=== PATIENT | female | born 1945 | race Caucasian/White ===

== ENCOUNTER → 2017-06-29 | Outpatient (CLI) | payer MEDICAID, MEDICARE ==
[~2017-06-29] MED LIST: ACET500C2 PO; ALPR0.5T6 PO; AMLO10TA2 PO; ASPI-630 PO; BISA10SU13 RC; FLUO40CA2 PO; GLUC1KIT IM; HYDR-971 PO; LISI1TAB7 PO; MULT-503 PO; NYST15PO2 TP; OLAN20TA7 PO; PIOG30TA3 PO
== END | disposition home or self-care (01) ==
LOC: PMGWOUND 12:22
PROVIDERS: ATTEND Emergency Medicine Undersea and Hyperbaric Medicine
DX: I87.311 Chronic venous hypertension (idiopathic) with ulcer of right lower extremity (principal); L97.211 Non-pressure chronic ulcer of right calf limited to breakdown of skin; L89.323 Pressure ulcer of left buttock, stage 3; L89.892 Pressure ulcer of other site, stage 2; E66.9 Obesity, unspecified; M19.90 Unspecified osteoarthritis, unspecified site; F31.9 Bipolar disorder, unspecified; F41.9 Anxiety disorder, unspecified; E78.5 Hyperlipidemia, unspecified
CPT/HCPCS: 99205

== ENCOUNTER → 2017-08-25 | Outpatient (CLI) | payer MEDICARE, MEDICAID ==
[2017-07-20 15:00] VITALS: BP 109/46
== END | disposition home or self-care (01) ==
LOC: PMGWOUND 12:30
PROVIDERS: ATTEND Emergency Medicine Undersea and Hyperbaric Medicine
DX: I87.311 Chronic venous hypertension (idiopathic) with ulcer of right lower extremity (principal); E11.622 Type 2 diabetes mellitus with other skin ulcer; L97.211 Non-pressure chronic ulcer of right calf limited to breakdown of skin; L89.323 Pressure ulcer of left buttock, stage 3; L89.892 Pressure ulcer of other site, stage 2; F41.9 Anxiety disorder, unspecified; F31.9 Bipolar disorder, unspecified; I10 Essential (primary) hypertension; K21.9 Gastro-esophageal reflux disease without esophagitis; E78.5 Hyperlipidemia, unspecified; E66.01 Morbid (severe) obesity due to excess calories; M19.90 Unspecified osteoarthritis, unspecified site; Z68.44 Body mass index [BMI] 60.0-69.9, adult
CPT/HCPCS: 99214

== ENCOUNTER → 2017-09-07 | Outpatient (CLI) | payer MEDICARE, MEDICAID ==
[2017-07-20 15:00] VITALS: BP 109/46
== END | disposition home or self-care (01) ==
LOC: PMGWOUND 13:14
PROVIDERS: ATTEND Emergency Medicine Undersea and Hyperbaric Medicine
DX: I87.311 Chronic venous hypertension (idiopathic) with ulcer of right lower extremity (principal); E11.622 Type 2 diabetes mellitus with other skin ulcer; L97.211 Non-pressure chronic ulcer of right calf limited to breakdown of skin; L89.323 Pressure ulcer of left buttock, stage 3; F41.9 Anxiety disorder, unspecified; F31.9 Bipolar disorder, unspecified; K21.9 Gastro-esophageal reflux disease without esophagitis; M19.90 Unspecified osteoarthritis, unspecified site; E78.5 Hyperlipidemia, unspecified; E66.01 Morbid (severe) obesity due to excess calories; Z68.44 Body mass index [BMI] 60.0-69.9, adult
CPT/HCPCS: 97605

== ENCOUNTER → 2017-09-30 | Outpatient (CLI) | payer MEDICARE, MEDICAID | END | disposition home or self-care (01) | LOC: PMGWOUND 11:10 | DX: I87.311 Chronic venous hypertension (idiopathic) with ulcer of right lower extremity (principal); L97.211 Non-pressure chronic ulcer of right calf limited to breakdown of skin; L89.323 Pressure ulcer of left buttock, stage 3; F31.9 Bipolar disorder, unspecified; F41.9 Anxiety disorder, unspecified; K21.9 Gastro-esophageal reflux disease without esophagitis; E78.5 Hyperlipidemia, unspecified; E66.01 Morbid (severe) obesity due to excess calories; I10 Essential (primary) hypertension; M19.90 Unspecified osteoarthritis, unspecified site; Z68.44 Body mass index [BMI] 60.0-69.9, adult | CPT/HCPCS: 99214 ==

== ENCOUNTER → 2017-10-02 | Outpatient (CLI) | payer MEDICARE, MEDICAID ==
[~2017-10-02] MED LIST changes: -ACET500C2 PO; -ALPR0.5T6 PO; -AMLO10TA2 PO; -ASPI-630 PO; -BISA10SU13 RC; -FLUO40CA2 PO; -GLUC1KIT IM; -HYDR-971 PO; +IOHEXOL 300 MG/ML 100ML VIAL.; -LISI1TAB7 PO; -MULT-503 PO; -NYST15PO2 TP; -OLAN20TA7 PO; -PIOG30TA3 PO
[2017-10-02] MEDS: IOHEXOL 300 MG/ML 100ML VIAL. IJ ×2 (10:43)
== END | disposition home or self-care (01) ==
LOC: RAD 09:01
DX: L02.31 Cutaneous abscess of buttock (principal)
CPT/HCPCS: 73501; 74176; Q9967

== ENCOUNTER → 2017-10-26 | Outpatient (CLI) | payer MEDICARE, MEDICAID | END | disposition home or self-care (01) | LOC: PMGWOUND 08:35 | DX: I87.311 Chronic venous hypertension (idiopathic) with ulcer of right lower extremity (principal); L97.211 Non-pressure chronic ulcer of right calf limited to breakdown of skin; L89.324 Pressure ulcer of left buttock, stage 4; F41.9 Anxiety disorder, unspecified; E78.5 Hyperlipidemia, unspecified; K21.9 Gastro-esophageal reflux disease without esophagitis; E66.01 Morbid (severe) obesity due to excess calories; F31.9 Bipolar disorder, unspecified; I10 Essential (primary) hypertension; M19.90 Unspecified osteoarthritis, unspecified site; Z68.44 Body mass index [BMI] 60.0-69.9, adult | CPT/HCPCS: 97597; 97598; 97605 ==

== ENCOUNTER → 2017-11-02 | Outpatient (CLI) | payer MEDICARE, MEDICAID, OTHER | END | disposition home or self-care (01) | LOC: PMGWOUND 09:45 | DX: I87.311 Chronic venous hypertension (idiopathic) with ulcer of right lower extremity (principal); L97.211 Non-pressure chronic ulcer of right calf limited to breakdown of skin; L89.324 Pressure ulcer of left buttock, stage 4; H16.422 Pannus (corneal), left eye; F41.9 Anxiety disorder, unspecified; E78.5 Hyperlipidemia, unspecified; K21.9 Gastro-esophageal reflux disease without esophagitis; E66.01 Morbid (severe) obesity due to excess calories; F31.9 Bipolar disorder, unspecified; I10 Essential (primary) hypertension; M19.90 Unspecified osteoarthritis, unspecified site; Z68.44 Body mass index [BMI] 60.0-69.9, adult | CPT/HCPCS: 97597; 97605 ==

== ENCOUNTER → 2017-11-09 | Outpatient (CLI) | payer MEDICARE, MEDICAID | END | disposition home or self-care (01) | LOC: PMGWOUND 14:00 | DX: I87.311 Chronic venous hypertension (idiopathic) with ulcer of right lower extremity (principal); L97.211 Non-pressure chronic ulcer of right calf limited to breakdown of skin; L89.324 Pressure ulcer of left buttock, stage 4; H16.422 Pannus (corneal), left eye; F41.9 Anxiety disorder, unspecified; E78.5 Hyperlipidemia, unspecified; K21.9 Gastro-esophageal reflux disease without esophagitis; E66.01 Morbid (severe) obesity due to excess calories; I10 Essential (primary) hypertension; M19.90 Unspecified osteoarthritis, unspecified site; F32.9 Major depressive disorder, single episode, unspecified; Z68.44 Body mass index [BMI] 60.0-69.9, adult; S31.821A Laceration without foreign body of left buttock, initial encounter; X58.XXXA Exposure to other specified factors, initial encounter; Y93.9 Activity, unspecified; Y99.8 Other external cause status; Y92.9 Unspecified place or not applicable | CPT/HCPCS: 97606 ==

== ENCOUNTER → 2017-11-16 | Outpatient (CLI) | payer MEDICARE, MEDICAID | END | disposition home or self-care (01) | LOC: PMGWOUND 10:30 | DX: I87.311 Chronic venous hypertension (idiopathic) with ulcer of right lower extremity (principal); L97.211 Non-pressure chronic ulcer of right calf limited to breakdown of skin (principal); L89.324 Pressure ulcer of left buttock, stage 4; L89.133 Pressure ulcer of right lower back, stage 3; H16.422 Pannus (corneal), left eye; F41.9 Anxiety disorder, unspecified; E78.5 Hyperlipidemia, unspecified; K21.9 Gastro-esophageal reflux disease without esophagitis; E66.01 Morbid (severe) obesity due to excess calories; I10 Essential (primary) hypertension; M19.90 Unspecified osteoarthritis, unspecified site; F32.9 Major depressive disorder, single episode, unspecified; Z68.44 Body mass index [BMI] 60.0-69.9, adult | CPT/HCPCS: 99214 ==

== ENCOUNTER → 2017-11-23 | Outpatient (CLI) | payer MEDICARE, MEDICAID | END | disposition home or self-care (01) | LOC: PMGWOUND 11:05 | DX: L89.324 Pressure ulcer of left buttock, stage 4 (principal); L89.133 Pressure ulcer of right lower back, stage 3; H16.422 Pannus (corneal), left eye; F41.9 Anxiety disorder, unspecified; E78.5 Hyperlipidemia, unspecified; K21.9 Gastro-esophageal reflux disease without esophagitis; E66.01 Morbid (severe) obesity due to excess calories; I10 Essential (primary) hypertension; M19.90 Unspecified osteoarthritis, unspecified site; F32.9 Major depressive disorder, single episode, unspecified; Z68.44 Body mass index [BMI] 60.0-69.9, adult | CPT/HCPCS: 99214 ==

== ENCOUNTER → 2017-12-01 | Outpatient (CLI) | payer MEDICARE, MEDICAID | END | disposition home or self-care (01) | LOC: PMGWOUND 08:49 | DX: I87.311 Chronic venous hypertension (idiopathic) with ulcer of right lower extremity (principal); E11.622 Type 2 diabetes mellitus with other skin ulcer; L97.211 Non-pressure chronic ulcer of right calf limited to breakdown of skin; L89.324 Pressure ulcer of left buttock, stage 4; L89.133 Pressure ulcer of right lower back, stage 3; B37.2 Candidiasis of skin and nail; M19.90 Unspecified osteoarthritis, unspecified site; F31.9 Bipolar disorder, unspecified; F41.9 Anxiety disorder, unspecified; E78.5 Hyperlipidemia, unspecified | CPT/HCPCS: 11042; 11045 ==

== ENCOUNTER → 2017-12-07 | Outpatient (CLI) | payer MEDICARE, MEDICAID | END | disposition home or self-care (01) | LOC: PMGWOUND 09:12 | DX: E11.622 Type 2 diabetes mellitus with other skin ulcer (principal); L89.324 Pressure ulcer of left buttock, stage 4; L98.412 Non-pressure chronic ulcer of buttock with fat layer exposed; L89.133 Pressure ulcer of right lower back, stage 3; L98.491 Non-pressure chronic ulcer of skin of other sites limited to breakdown of skin; I87.311 Chronic venous hypertension (idiopathic) with ulcer of right lower extremity; L97.211 Non-pressure chronic ulcer of right calf limited to breakdown of skin; B37.2 Candidiasis of skin and nail; M19.90 Unspecified osteoarthritis, unspecified site; F32.9 Major depressive disorder, single episode, unspecified; F41.9 Anxiety disorder, unspecified; E66.01 Morbid (severe) obesity due to excess calories; E78.5 Hyperlipidemia, unspecified; K21.9 Gastro-esophageal reflux disease without esophagitis; Z68.44 Body mass index [BMI] 60.0-69.9, adult | CPT/HCPCS: 97606 ==

== ENCOUNTER → 2017-12-14 | Outpatient (CLI) | payer MEDICARE, MEDICAID | END | disposition home or self-care (01) | LOC: PMGWOUND 09:49 | DX: E11.622 Type 2 diabetes mellitus with other skin ulcer (principal); L89.324 Pressure ulcer of left buttock, stage 4; L98.412 Non-pressure chronic ulcer of buttock with fat layer exposed; L89.133 Pressure ulcer of right lower back, stage 3; L98.491 Non-pressure chronic ulcer of skin of other sites limited to breakdown of skin; I87.311 Chronic venous hypertension (idiopathic) with ulcer of right lower extremity; L97.211 Non-pressure chronic ulcer of right calf limited to breakdown of skin; B37.2 Candidiasis of skin and nail; M19.90 Unspecified osteoarthritis, unspecified site; F32.9 Major depressive disorder, single episode, unspecified; F41.9 Anxiety disorder, unspecified; E66.01 Morbid (severe) obesity due to excess calories; E78.5 Hyperlipidemia, unspecified; K21.9 Gastro-esophageal reflux disease without esophagitis; Z68.44 Body mass index [BMI] 60.0-69.9, adult | CPT/HCPCS: 11042 ==

== ENCOUNTER → 2017-12-21 | Outpatient (CLI) | payer MEDICARE, MEDICAID | END | disposition home or self-care (01) | LOC: PMGWOUND 12:00 | DX: E11.622 Type 2 diabetes mellitus with other skin ulcer (principal); L89.324 Pressure ulcer of left buttock, stage 4; L98.412 Non-pressure chronic ulcer of buttock with fat layer exposed; I87.311 Chronic venous hypertension (idiopathic) with ulcer of right lower extremity; L97.211 Non-pressure chronic ulcer of right calf limited to breakdown of skin; B37.2 Candidiasis of skin and nail; M19.90 Unspecified osteoarthritis, unspecified site; F32.9 Major depressive disorder, single episode, unspecified; F41.9 Anxiety disorder, unspecified; E66.01 Morbid (severe) obesity due to excess calories; E78.5 Hyperlipidemia, unspecified; K21.9 Gastro-esophageal reflux disease without esophagitis; Z68.44 Body mass index [BMI] 60.0-69.9, adult | CPT/HCPCS: 99214 ==

== ENCOUNTER 2018-04-19 22:32 | Emergency (ER) | payer MEDICARE, MEDICAID ==
[2018-04-19] MEDS: IV NORMAL SALINE 500ML BAG 500 ML IV (23:15)
[2018-04-20 00:45] LABS: BILIRUBIN,URINE SMALL (NEG); CLARITY,URINE CLEAR; COLOR,URINE AMBER; GLUCOSE,URINE NEGATIVE (NEG); NITRITE,URINE NEGATIVE (NEG); PROTEIN,URINE NEGATIVE (NEG-TRACE)
[2018-04-20 01:01] LABS: AMORPHOUS SEDIMENT,UR PRESENT /HPF; BACTERIA,URINE FEW /HPF (0-FEW); GRANULAR CASTS,URINE MODERATE /HPF; HYALINE CASTS, URINE MANY /HPF; SQUAMOUS EPITHELIAL CELL,UR FEW /LPF
== END 2018-04-20 01:54 | disposition home or self-care (01) ==
LOC: ER 04-20 01:54
DX: M25.561 Pain in right knee (principal); M25.562 Pain in left knee; G89.29 Other chronic pain; I10 Essential (primary) hypertension; E11.9 Type 2 diabetes mellitus without complications; E78.00 Pure hypercholesterolemia, unspecified; Z91.041 Radiographic dye allergy status; E66.01 Morbid (severe) obesity due to excess calories; Z68.44 Body mass index [BMI] 60.0-69.9, adult; X50.9XXA Other and unspecified overexertion or strenuous movements or postures, initial encounter; Y93.01 Activity, walking, marching and hiking; Y99.8 Other external cause status; Y92.89 Other specified places as the place of occurrence of the external cause
CPT/HCPCS: 73560; 81001; 99285-25; J7040

== ENCOUNTER 2018-12-12 17:08 | Inpatient (IN) | payer MEDICARE, OTHER ==
[~2018-12-12] VITALS: Ht 162.6 cm; Wt 159.7 kg
[~2018-12-12 17:08] MED LIST changes: +ACET500C2 PO; +ACET500T55 PO; +ALPR0.5T6 PO; +AMIN30LI PO; +AMLO10TA8 PO; +ASCO500T2 PO; +ASPI-630 PO; +BISA10SU13 RC; +BISA10SU55 RC; +CEPH-264 PO; +CITA10TA4 PO; +FLUO40CA2 PO; +GLUC1KIT IM; +HYDR-2761 PO; +HYDR-3164 PO; -IOHEXOL 300 MG/ML 100ML VIAL.; +LACT1CAP6 PO; +LISI1TAB7 PO; +MORP20SO PO; +MULT-503 PO; +NYST15PO2 TP; +OLAN20TA15 PO; +PIOG30TA62 PO; +PROM12.58 PO; +TRIA15OI TP; +ZINC220C4 PO
--- NOTE | 2018-12-12 17:24 | PHYS DOC ---
Past Medical History Past Medical History: Anxiety, Depression, Diabetes-Type II, High Cholesterol, Hypertension Additional Past Medical Histor: CHRONIC KNEE PAIN (KEVIN KENDRICK MD) Past Surgical History: No Surgical History (KEVIN KENDRICK MD) Alcohol Use: None Drug Use: None (KEVIN KENDRICK MD) Adult General HPI HPI Patient is a 73 year old female who arrives via EMS from her nursing facility. I spoke with Pt's PCP prior to her arrival, and he reported that the patient was hypoxic at the nursing facility, and somewhat less awake than her normal mental statusconcern for CO2 narcosis. The patient was thus sent to the emergency department for evaluation. The patient is somewhat somnolent but arousable, and states she just feels generally weak. She denies any focal pain. She has not had any reported vomiting. She does come with labs results from her nursing facility that were drawn recently, and it appears that she has had a urinary tract infection about 2 weeks ago, which was treated with antibiotics. She has not had a cough. EMS reported a temperature of 99.5, but the patient does feel warm to touch. There are no known alleviating or exacerbating factors to the patient's symptoms otherwise. (KEVIN KENDRICK MD) Review of Systems Review of Systems Constitutional: Denies fever or chills [] Eyes: Denies change in visual acuity, redness, or eye pain [] HENT: Denies nasal congestion or sore throat [] Respiratory: Denies cough or shortness of breath [] Cardiovascular:The patient denies any shortness of breath, chest pain, palpitations, or orthopnea [] GI: Denies Abdominal pain, nausea, vomiting, bloody stools or diarrhea [] : Denies dysuria or hematuria [] Musculoskeletal: Denies back pain or joint pain [] Integument: Denies rash or skin lesions [] Neurologic: Denies headache, focal weakness or sensory changes. . Reports generalized weakness. [] Endocrine: Denies polyuria or polydipsia [] All other systems were reviewed and found to be within normal limits, except as documented in this note. (KEVIN KENDRICK MD) Current Medications Current Medications Current Medications Medications (Trade) Dose Ordered Sig/Macey Start Time Stop Time Status Last Admin Dose Admin Acetaminophen (Tylenol) 1,000 mg 1X ONCE 12/12/18 18:00 3/17/19 18:01 DC 12/12/18 18:03 1,000 MG Furosemide (Lasix) 40 mg 1X ONCE 12/12/18 18:45 12/12/18 18:46 UNV Sodium Chloride 1,000 ml @ 100 mls/hr Q10H 12/12/18 17:30 12/13/18 03:29 12/12/18 18:03 100 MLS/HR (SIMI PAN Jr. DO) Allergies Allergies Allergies Coded Allergies Type Severity Reaction Last Updated Verified I S O L A T I O N *CONTACT* Allergy Unknown 10/14/17 Yes No Known Medication Allergies Allergy Unknown 10/14/17 Yes (SIMI PAN Jr. DO) Physical Exam Physical Exam PHYSICAL EXAM: CONSTITUTIONAL: Well developed, the patient is morbidly obese.. HEAD: normocephalic, atraumatic EENT: PERRL, EOMI. Conjunctivae normal color, sclerae non-icteric; moist mucous membranes. NECK: Supple, non-tender; no meningismus. LUNGS: Lungs CTA, breathing even and unlabored. Normal air movement. HEART: Regular rate and rhythm, no murmur CHEST: No deformity; non-tender ABDOMEN: The abdomen is soft, and non-tender, no masses or bruits. EXTREM: Normal ROM; no deformity, no calf tenderness. Normal pulses palpable in all extremities. There is significant tense bilateral pedal edema with changes of chronic venous stasis bilaterally. There are wrapping was on the legs and feet bilaterally. SKIN: There is hyperemia of the underside of the patient's abdominal pannus and perineum suggestive of fungal infection. No other rash; no diaphoresis NEURO: Pt is lethargic, but arousable, normal speech and cognition; CN's grossly intact; strength grossly intact without focal deficit. BACK: No CVA TTP. (KEVIN KENDRICK MD) Current Patient Data Vital Signs Vital Signs Date Time Temp Pulse Resp B/P (MAP) Pulse Ox O2 Delivery O2 Flow Rate FiO2 12/12/18 18:10 Nasal Cannula 4.5 12/12/18 17:08 100.5 100 12 121/56 (77) 95 100.5 (SIMI PAN Jr. DO) Lab Values Laboratory Tests Test 12/12/18 17:13 12/12/18 17:25 12/12/18 17:30 O2 Saturation 96 % (92-99) Arterial Blood pH 7.44 (7.35-7.45) Arterial Blood pCO2 at Patient Temp 46 mmHg (35-46) Arterial Blood pO2 at Patient Temp 86 mmHg (65-108) Arterial Blood HCO3 30 mmol/L (21-28) H Arterial Blood Base Excess 5 mmol/L (-3-3) H FiO2 38 White Blood Count 9.8 x10^3/uL (4.0-11.0) Red Blood Count 3.33 x10^6/uL (3.50-5.40) L Hemoglobin 9.7 g/dL (12.0-15.5) L Hematocrit 29.6 % (36.0-47.0) L Mean Corpuscular Volume 89 fL (79-100) Mean Corpuscular Hemoglobin 29 pg (25-35) Mean Corpuscular Hemoglobin Concent 33 g/dL (31-37) Red Cell Distribution Width 15.0 % (11.5-14.5) H Platelet Count 241 x10^3/uL (140-400) Neutrophils (%) (Auto) 83 % (31-73) H Lymphocytes (%) (Auto) 11 % (24-48) L Monocytes (%) (Auto) 6 % (0-9) Eosinophils (%) (Auto) 0 % (0-3) Basophils (%) (Auto) 0 % (0-3) Neutrophils # (Auto) 8.1 x10^3uL (1.8-7.7) H Lymphocytes # (Auto) 1.1 x10^3/uL (1.0-4.8) Monocytes # (Auto) 0.6 x10^3/uL (0.0-1.1) Eosinophils # (Auto) 0.0 x10^3/uL (0.0-0.7) Basophils # (Auto) 0.0 x10^3/uL (0.0-0.2) Prothrombin Time 23.0 SEC (11.7-14.0) H Prothrombin Time INR 2.1 (0.8-1.1) H Sodium Level 143 mmol/L (136-145) Potassium Level 3.9 mmol/L (3.5-5.1) Chloride Level 104 mmol/L (98-107) Carbon Dioxide Level 33 mmol/L (21-32) H Anion Gap 6 (6-14) Blood Urea Nitrogen 30 mg/dL (7-20) H Creatinine 1.3 mg/dL (0.6-1.0) H Estimated GFR (Cockcroft-Gault) 40.4 BUN/Creatinine Ratio 23 (6-20) H Glucose Level 156 mg/dL (70-99) H Lactic Acid Level 0.8 mmol/L (0.4-2.0) Calcium Level 9.2 mg/dL (8.5-10.1) Magnesium Level 2.0 mg/dL (1.8-2.4) Total Bilirubin 0.5 mg/dL (0.2-1.0) Aspartate Amino Transferase (AST) 18 U/L (15-37) Alanine Aminotransferase (ALT) 10 U/L (14-59) L Alkaline Phosphatase 68 U/L (46-116) Creatine Kinase 135 U/L (26-192) Creatine Kinase MB (Mass) < 0.5 ng/mL (0.0-3.6) Creatine Kinase MB Relative Index % (0-4) Troponin I Quantitative < 0.017 ng/mL (0.000-0.055) RA-Zmz-S-Type Natriuretic Peptide 5925 pg/mL (0-124) H Total Protein 7.3 g/dL (6.4-8.2) Albumin 2.3 g/dL (3.4-5.0) L Albumin/Globulin Ratio 0.5 (1.0-1.7) L Thyroid Stimulating Hormone (TSH) 0.907 uIU/mL (0.358-3.74) Free Thyroxine 1.16 ng/dL (0.76-1.46) Urine Collection Type Unknown Urine Color Yellow Urine Clarity Clear Urine pH 5.0 Urine Specific [place] 1.015 Urine Protein Negative mg/dL (NEG-TRACE) Urine Glucose (UA) Negative mg/dL (NEG) Urine Ketones (Stick) Negative mg/dL (NEG) Urine Blood Moderate (NEG) Urine Nitrite Negative (NEG) Urine Bilirubin Negative (NEG) Urine Urobilinogen Dipstick 0.2 mg/dL (0.2 mg/dL) Urine Leukocyte Esterase Negative (NEG) Urine RBC 20-40 /HPF (0-2) Urine WBC 0 /HPF (0-4) Urine Bacteria 0 /HPF (0-FEW) Laboratory Tests 12/12/18 17:25 Laboratory Tests 12/12/18 17:25 (SIMI PAN Jr. DO) Lab Values Laboratory Tests Test 12/12/18 17:25 White Blood Count 9.8 x10^3/uL (4.0-11.0) Red Blood Count 3.33 x10^6/uL (3.50-5.40) L Hemoglobin 9.7 g/dL (12.0-15.5) L Hematocrit 29.6 % (36.0-47.0) L Mean Corpuscular Volume 89 fL (79-100) Mean Corpuscular Hemoglobin 29 pg (25-35) Mean Corpuscular Hemoglobin Concent 33 g/dL (31-37) Red Cell Distribution Width 15.0 % (11.5-14.5) H Platelet Count 241 x10^3/uL (140-400) Neutrophils (%) (Auto) 83 % (31-73) H Lymphocytes (%) (Auto) 11 % (24-48) L Monocytes (%) (Auto) 6 % (0-9) Eosinophils (%) (Auto) 0 % (0-3) Basophils (%) (Auto) 0 % (0-3) Neutrophils # (Auto) 8.1 x10^3uL (1.8-7.7) H Lymphocytes # (Auto) 1.1 x10^3/uL (1.0-4.8) Monocytes # (Auto) 0.6 x10^3/uL (0.0-1.1) Eosinophils # (Auto) 0.0 x10^3/uL (0.0-0.7) Basophils # (Auto) 0.0 x10^3/uL (0.0-0.2) Laboratory Tests 12/12/18 17:25 (KEVIN KENDRICK MD) EKG EKG [Normal sinus rhythm with frequent APCs at a rate of 92 beats for minute, normal axis, normal intervals, there are no acute ischemic ST/T changes.] (KEVIN KENDRICK MD) Radiology/Procedures Radiology/Procedures [] (KEVIN KENDRICK MD) Course & Med Decision Making Course & Med Decision Making Pertinent Labs and Imaging studies reviewed. (See chart for details) [6:00 PM: The patient's condition remains stable. Care will be turned over to Dr. Pan at shift change, pending test results and final disposition. Report given.] (KEVIN KENDRICK MD) Course & Med Decision Making Patient's care was accepted from Dr. Kendrick at 6:00 PM. At the time of his departure patient's workup was pending. Workup has returned with findings of elevated BNP at 5900 chest x-ray demonstrating some fluid overload. I have discussed the patient's case with Dr. Andino and patient will be admitted under his care with cardiology consulted. (SIMI PAN Jr., DO) Dragon Disclaimer Dragon Disclaimer This electronic medical record was generated, in whole or in part, using a voice recognition dictation system. (KEVIN KENDRICK MD) Departure Departure Impression: Primary Impression: CHF (congestive heart failure) Disposition: ADMITTED INPATIENT Admitting Physician: Angeline Andino (SIMI PAN Jr., DO) Condition: GOOD Referrals: ANGELINE ANDINO MD (PCP) Problem Qualifiers Primary Impression: CHF (congestive heart failure) Heart failure type: unspecified Heart failure chronicity: unspecified Qualified Codes: I50.9 - Heart failure, unspecified KEVIN KENDRICK MD Dec 12, 2018 17:24 SIMI PAN Jr., DO Dec 12, 2018 18:42
[2018-12-12] MEDS ORDERED: IV NORMAL SALINE 1000ML BAG 1,000 ML IV SCH (17:30)
[2018-12-12 17:41] LABS: BASO % 0 % (0-3); EOS % 0 % (0-3); HEMATOCRIT 29.6 % (36.0-47.0); HEMOGLOBIN 9.7 g/dL (12.0-15.5); LYMPH # 1.1 x10^3/uL (1.0-4.8); LYMPH % 11 % (24-48); MEAN CORPUSCULAR HEMOGLOBIN 29 pg (25-35); MEAN CORPUSCULAR HGB CONC 33 g/dL (31-37); MEAN CORPUSCULAR VOLUME 89 fL (79-100); MONO # 0.6 x10^3/uL (0.0-1.1); MONO % 6 % (0-9); NEUT # 8.1 x10^3uL (1.8-7.7); NEUT % 83 % (31-73); PLATELET COUNT 241 x10^3/uL (140-400); RED BLOOD COUNT 3.33 x10^6/uL (3.50-5.40); WHITE BLOOD COUNT 9.8 x10^3/uL (4.0-11.0)
[2018-12-12 17:45] LABS: BILIRUBIN,URINE NEGATIVE (NEG); CLARITY,URINE CLEAR; COLOR,URINE YELLOW; NITRITE,URINE NEGATIVE (NEG); PROTEIN,URINE NEGATIVE (NEG-TRACE); UROBILINOGEN,URINE 0.2 mg/dL (0.2 mg/dL)
[2018-12-12 17:55] LABS: CALCIUM 9.2 mg/dL (8.5-10.1); CREATININE 1.3 mg/dL (0.6-1.0); GFR 40.4; POTASSIUM 3.9 mmol/L (3.5-5.1)
[2018-12-12 17:57] LABS: BACTERIA,URINE 0 /HPF (0-FEW); RBC,URINE 20-40 /HPF (0-2); WBC,URINE 0 /HPF (0-4)
[2018-12-12 17:59] LABS: ALBUMIN 2.3 g/dL (3.4-5.0); ALBUMIN/GLOBULIN RATIO 0.5 (1.0-1.7); TOTAL BILIRUBIN 0.5 mg/dL (0.2-1.0); TOTAL PROTEIN 7.3 g/dL (6.4-8.2)
[2018-12-12] MEDS ORDERED: ACETAMINOPHEN 500 MG TABLET PO ONE (18:00)
[2018-12-12 18:07] LABS: FREE T4 1.16 ng/dL (0.76-1.46); THYROID STIM HORMONE (TSH) 0.907 uIU/mL (0.358-3.74)
[2018-12-12 18:09] LABS: CREATINE KINASE 135 U/L (26-192)
[2018-12-12 18:19] LABS: BASE EXCESS ABG 5 mmol/L (-3-3); HCO3 ABG 30 mmol/L (21-28); PCO2 ABG 46 mmHg (35-46); PO2 ABG 86 mmHg (65-108); SAT O2 ABG 96 % (92-99)
[2018-12-12 18:20] LABS: FIO2 ABG 38
[2018-12-12] MEDS ORDERED: FUROSEMIDE 40 MG/4 ML VIAL. IVP ONE (19:00)
[2018-12-12 20:30] VITALS: BP 127/73
[2018-12-12] MEDS ORDERED: NITR100C62 PO (22:02)
[2018-12-12] MEDS ORDERED: MENT3.5O TP (22:02)
[2018-12-12] MEDS ORDERED: BACL10TA PO (22:02)
[2018-12-12] MEDS ORDERED: GABA-585 PO (22:02)
[2018-12-12 23:00] VITALS: BP 118/62
--- NOTE | 2018-12-13 | NUR ---
The patient, ARIK HAWKINS, 73 y/o, F admitted by JOSEPH XIONG MD, was given written information regarding hospital policies, unit procedures and contact persons. Valuables were checked and left with patient.
[2018-12-13 03:00] VITALS: BP 130/52
[2018-12-13] MEDS: NYSTATIN TOPICAL POWDER 15GM BOTTLE. TP SCH ×3 (05:38→20:49)
[2018-12-13 07:00] VITALS: BP 122/56
--- NOTE | 2018-12-13 07:00 | EKG ---
[facility] [address] [place] [address] Test Date: 2018-12-12 Test Time: 17:50:25 Pat Name: ARIK HAWKINS Department: Room: [facility] Gender: F Ssn/Ssbn Assistant Navigator: SONIA : 1945 Requested By: KEVIN BHAT Order Number: [id number] Reading MD: Noel Fish MD Measurements Intervals [place] Rate: 92 P: UT: QRS: 9 QRSD: 80 T: 27 QT: 356 QTc: 445 Interpretive Statements ATRIAL FIBRILLATION NON-SPECIFIC ST/T CHANGES Electronically Signed On 12-16-2018 15:54:07 CDT by Noel Fish MD
--- NOTE | 2018-12-13 08:19 | RAD ---
EXAM: AP View of the chest DATE: 12/12/2018 6:18 PM INDICATION: difficulty breathing COMPARISON: 02/17/2018 FINDINGS: Stable cardiomegaly. Small left pleural effusion. Interstitial prominence bilaterally. No lobar consolidation. No pneumothorax. Mediastinal and hilar contours are grossly stable. IMPRESSION: Cardiomegaly with small left pleural effusion and interstitial prominence may be seen with pulmonary edema. No lobar consolidation. Electronically signed by: Owen Bowman MD (12/13/2018 8:16 AM) [id number]
[2018-12-13] MEDS ORDERED: ALPRAZolam 0.5 MG TABLET PO PRN (09:00)
[2018-12-13] MEDS ORDERED: NON FORMULARY ITEM (Menthol/Zinc Oxide (Calmoseptine Ointment) 3.5 GM) TP SCH (09:00)
[2018-12-13] MEDS ORDERED: GLUCAGON,HUMAN RECOMBINANT 1 MG/ML VIAL. IM PRN (09:15)
[2018-12-13] MEDS ORDERED: MORPHINE IR 15 MG TABLET PO PRN (09:15)
[2018-12-13] MEDS ORDERED: ACETAMINOPHEN 500 MG TABLET PO PRN (09:15)
[2018-12-13] MEDS ORDERED: BISACODYL 10 MG SUPP.RECT. PR PRN (09:15)
[2018-12-13] MEDS ORDERED: VANCOMYCIN 2 GM in IV NORMAL SALINE 500ML BAG 500 ML IV ONE (09:30)
[2018-12-13 09:47] LABS: BASO % 0 % (0-3); EOS # 0.1 x10^3/uL (0.0-0.7); EOS % 1 % (0-3); HEMATOCRIT 32.5 % (36.0-47.0); HEMOGLOBIN 10.8 g/dL (12.0-15.5); LYMPH # 1.3 x10^3/uL (1.0-4.8); LYMPH % 18 % (24-48); MEAN CORPUSCULAR HEMOGLOBIN 30 pg (25-35); MEAN CORPUSCULAR HGB CONC 33 g/dL (31-37); MEAN CORPUSCULAR VOLUME 90 fL (79-100); MONO # 0.8 x10^3/uL (0.0-1.1); MONO % 11 % (0-9); NEUT % 70 % (31-73); PLATELET COUNT 224 x10^3/uL (140-400); RED BLOOD COUNT 3.61 x10^6/uL (3.50-5.40); RED CELL DISTRIBUTION WIDTH 15.1 % (11.5-14.5); WHITE BLOOD COUNT 7.2 x10^3/uL (4.0-11.0)
--- NOTE | 2018-12-13 09:58 | NUR ---
IP: Pt has a hx of + mrsa screen on 02/17/18 and + vre in buttock abscess from 10/14/17. Pt to be in contact precautions until there are 2 negative screens 7 days apart and no open wounds.
[2018-12-13] MEDS: TRIAMCINOLONE ACETONIDE 0.1% TOPICAL OINTMENT 15GM TUBE. TP SCH ×2 (10:00→20:49)
[2018-12-13] MEDS: OLANZapine 5 MG TABLET PO SCH (10:00)
[2018-12-13] MEDS ORDERED: PIOGLITAZONE 15 MG TABLET. PO SCH (10:00)
--- NOTE | 2018-12-13 10:01 | PDOC2 ---
CARDIAC CONSULT DATE OF CONSULT Date of Consult DATE: 12/13/18 TIME: 09:56 REASON FOR CONSULT Reason for Consult: CHF REFERRING PHYSICIAN Referring Physician: Dr. Pan SOURCE Source: Caregiver, Chart review, Patient HISTORY OF PRESENT ILLNESS HISTORY OF PRESENT ILLNESS This is a 73 yo female who presented from nursing facility secondary to altered mental status, drowsiness, and hypoxia. Patient was seen last week at [facility] due to similar symptoms. Was diagnosed with UTI and discharged home with antibiotic therapy. Patient finished course of antibiotic therapy, but symptoms persisted. Became more drowsy. Was noted to be hypoxic at nursing facility and was transferred to the ED for further evaluation and treatment. Patient does reports some mild SOA. Has been weak for the last couple of weeks. No chest pain, palpitations, dizziness, diaphoresis, orthopnea , or fevers. Has chronic LE edema/lymphedema with wounds. Also has history of AFIB with Eliquis. Reports increased weakness and reports 4 falls in the last 6 months. 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 PAST MEDICAL HISTORY Cardiovascular: AFIB, CHF, HTN, Hyperlipidemia, Other (PAD) Pulmonary: No pertinent hx CENTRAL NERVOUS SYSTEM: Other (no pertinent positives) GI: GERD Heme/Onc: No pertinent hx Hepatobiliary: No pertinent hx Psych: Anxiety, Depression Musculoskeletal: Osteoarthritis Rheumatologic: No pertinent hx Infectious disease: No pertinent hx ENT: No pertinent hx Renal/: No pertinent hx Endocrine: Diabetes Dermatology: No pertinent hx PAST SURGICAL HISTORY Past Surgical History: Other (back pain) FAMILY HISTORY Family History: Heart Disease SOCIAL HISTORY Smoke: No ALCOHOL: none Drugs: None Lives: Care Home CURRENT MEDICATIONS CURRENT MEDICATIONS Current Medications Medications (Trade) Dose Ordered Sig/Macey Route PRN Reason Start Time Stop Time Status Last Admin Dose Admin Sodium Chloride 1,000 ml @ 100 mls/hr Q10H IV 12/12/18 17:30 12/13/18 03:29 DC 12/12/18 18:03 Acetaminophen (Tylenol) 1,000 mg 1X ONCE PO 12/12/18 18:00 12/12/18 18:01 DC 12/12/18 18:03 Furosemide (Lasix) 40 mg 1X ONCE IVP 12/12/18 19:00 12/12/18 19:01 DC 12/12/18 18:58 Nystatin (Nystop) 15 campos BID TP 12/13/18 06:00 12/13/18 07:54 ALLERGIES ALLERGIES: Coded Allergies: I S O L A T I O N *CONTACT* (Verified Allergy, Unknown, 10/14/17) mrsa No Known Medication Allergies (Verified Allergy, Unknown, 10/14/17) ROS Review of System 14 point ROS conducted with pertinent positives noted above in HPI. PHYSICAL EXAM General: Alert, Oriented X3, Cooperative, No acute distress HEENT: Atraumatic Lungs: Clear to auscultation, Other (diminished bases) Heart: Other (IRRR; tele AFIB) Abdomen: Soft, No tenderness Extremities: Normal pulses, Other (lymphedema ) Skin: No significant lesion Neuro: Normal speech, Sensation intact Psych/Mental Status: Mental status NL, Mood NL MUSCULOSKELETAL: Osteoarthritic changes both hands VITALS VITALS Vital Signs Date Time Temp Pulse Resp B/P (MAP) Pulse Ox O2 Delivery O2 Flow Rate FiO2 12/13/18 07:00 97.9 60 18 122/56 (78) 95 Nasal Cannula 2.0 97.9 LABS Lab: Laboratory Tests Test 12/12/18 17:13 12/12/18 17:25 12/12/18 17:30 12/12/18 20:10 O2 Saturation 96 % (92-99) Arterial Blood pH 7.44 (7.35-7.45) Arterial Blood pCO2 at Patient Temp 46 mmHg (35-46) Arterial Blood pO2 at Patient Temp 86 mmHg (65-108) Arterial Blood HCO3 30 mmol/L (21-28) Arterial Blood Base Excess 5 mmol/L (-3-3) FiO2 38 White Blood Count 9.8 x10^3/uL (4.0-11.0) Red Blood Count 3.33 x10^6/uL (3.50-5.40) Hemoglobin 9.7 g/dL (12.0-15.5) Hematocrit 29.6 % (36.0-47.0) Mean Corpuscular Volume 89 fL (79-100) Mean Corpuscular Hemoglobin 29 pg (25-35) Mean Corpuscular Hemoglobin Concent 33 g/dL (31-37) Red Cell Distribution Width 15.0 % (11.5-14.5) Platelet Count 241 x10^3/uL (140-400) Neutrophils (%) (Auto) 83 % (31-73) Lymphocytes (%) (Auto) 11 % (24-48) Monocytes (%) (Auto) 6 % (0-9) Eosinophils (%) (Auto) 0 % (0-3) Basophils (%) (Auto) 0 % (0-3) Neutrophils # (Auto) 8.1 x10^3uL (1.8-7.7) Lymphocytes # (Auto) 1.1 x10^3/uL (1.0-4.8) Monocytes # (Auto) 0.6 x10^3/uL (0.0-1.1) Eosinophils # (Auto) 0.0 x10^3/uL (0.0-0.7) Basophils # (Auto) 0.0 x10^3/uL (0.0-0.2) Prothrombin Time 23.0 SEC (11.7-14.0) Prothromb Time International Ratio 2.1 (0.8-1.1) Sodium Level 143 mmol/L (136-145) Potassium Level 3.9 mmol/L (3.5-5.1) Chloride Level 104 mmol/L (98-107) Carbon Dioxide Level 33 mmol/L (21-32) Anion Gap 6 (6-14) Blood Urea Nitrogen 30 mg/dL (7-20) Creatinine 1.3 mg/dL (0.6-1.0) Estimated GFR (Cockcroft-Gault) 40.4 BUN/Creatinine Ratio 23 (6-20) Glucose Level 156 mg/dL (70-99) Lactic Acid Level 0.8 mmol/L (0.4-2.0) Calcium Level 9.2 mg/dL (8.5-10.1) Magnesium Level 2.0 mg/dL (1.8-2.4) Total Bilirubin 0.5 mg/dL (0.2-1.0) Aspartate Amino Transf (AST/SGOT) 18 U/L (15-37) Alanine Aminotransferase (ALT/SGPT) 10 U/L (14-59) Alkaline Phosphatase 68 U/L (46-116) Creatine Kinase 135 U/L (26-192) Creatine Kinase MB (Mass) < 0.5 ng/mL (0.0-3.6) Creatine Kinase MB Relative Index % (0-4) Troponin I Quantitative < 0.017 ng/mL (0.000-0.055) QC-Arf-B-Type Natriuretic Peptide 5925 pg/mL (0-124) Total Protein 7.3 g/dL (6.4-8.2) Albumin 2.3 g/dL (3.4-5.0) Albumin/Globulin Ratio 0.5 (1.0-1.7) Thyroid Stimulating Hormone (TSH) 0.907 uIU/mL (0.358-3.74) Free Thyroxine 1.16 ng/dL (0.76-1.46) Urine Collection Type Unknown Urine Color Yellow Urine Clarity Clear Urine pH 5.0 Urine Specific [place] 1.015 Urine Protein Negative mg/dL (NEG-TRACE) Urine Glucose (UA) Negative mg/dL (NEG) Urine Ketones (Stick) Negative mg/dL (NEG) Urine Blood Moderate (NEG) Urine Nitrite Negative (NEG) Urine Bilirubin Negative (NEG) Urine Urobilinogen Dipstick 0.2 mg/dL (0.2 mg/dL) Urine Leukocyte Esterase Negative (NEG) Urine RBC 20-40 /HPF (0-2) Urine WBC 0 /HPF (0-4) Urine Bacteria 0 /HPF (0-FEW) Ammonia < 10 mcmol/L (11-34) Test 12/13/18 08:24 12/13/18 09:05 Glucose (Fingerstick) 99 mg/dL (70-99) White Blood Count 7.2 x10^3/uL (4.0-11.0) Red Blood Count 3.61 x10^6/uL (3.50-5.40) Hemoglobin 10.8 g/dL (12.0-15.5) Hematocrit 32.5 % (36.0-47.0) Mean Corpuscular Volume 90 fL (79-100) Mean Corpuscular Hemoglobin 30 pg (25-35) Mean Corpuscular Hemoglobin Concent 33 g/dL (31-37) Red Cell Distribution Width 15.1 % (11.5-14.5) Platelet Count 224 x10^3/uL (140-400) Neutrophils (%) (Auto) 70 % (31-73) Lymphocytes (%) (Auto) 18 % (24-48) Monocytes (%) (Auto) 11 % (0-9) Eosinophils (%) (Auto) 1 % (0-3) Basophils (%) (Auto) 0 % (0-3) Neutrophils # (Auto) 5.0 x10^3uL (1.8-7.7) Lymphocytes # (Auto) 1.3 x10^3/uL (1.0-4.8) Monocytes # (Auto) 0.8 x10^3/uL (0.0-1.1) Eosinophils # (Auto) 0.1 x10^3/uL (0.0-0.7) Basophils # (Auto) 0.0 x10^3/uL (0.0-0.2) ASSESSMENT/PLAN ASSESSMENT/PLAN 1. Acute hypoxic respiratory failure 2. Acute on chronic probable diastolic HF; improved with diuresis 3. Hypertension; controlled 4. Hyperlipidemia 5. ANDRZEJ; improved 6. Diabetes, II; as per PCP 7. Chronic lymphedema Recommendations Echo to assess LV systolic function Diuresis with monitoring of renal function check lipids Given risk factors, consider outpatient ischemic evaluation AIFB rate controlled; No AV ana blocking agents given mild bradycardia noted on telemetry On Eliquis for stroke prevention; discussed risk versus benefits of OAC versus ASA with patient and daughter given multiple recent falls. Supportive care TADEO PARRA APRN Dec 13, 2018 10:01
[2018-12-13 10:24] LABS: CALCIUM 9.4 mg/dL (8.5-10.1); CREATININE 1.1 mg/dL (0.6-1.0); POTASSIUM 3.7 mmol/L (3.5-5.1)
--- NOTE | 2018-12-13 10:42 | HP ---
ADMIT DATE: 12/12/2018 HISTORY OF PRESENT ILLNESS: The patient is a 73-year-old female patient, resident at [facility] in [place] whom I have seen yesterday, who I have seen with the complaint of generalized weakness. She was shaky on her feet, has marked myoclonic jerks, was also hypoxic, unable to stand; however, denied any chest pain or shortness of breath. I was actually convinced given her size that she probably was retaining carbon dioxide and was transferred to the Emergency Room of [facility] where she was evaluated. Her lab work showed no leukocytosis. Her blood gases showed a pH of 7.44, pCO2 of 46 only and pO2 was 86. Her chest x-ray was consistent with congestive heart failure. The patient was treated with IV Lasix and was admitted for further evaluation. She has also had multiple wounds in both lower extremities, on her back and on her thighs and her gluteal areas and we will obviously consult the Marine Machinist as well as the Wound Care Team. We will monitor her blood sugar closely and start her on insulin if necessary. PAST MEDICAL HISTORY: Significant for anxiety, depression, type 2 diabetes, hypertension and hyperlipidemia. She also has morbid obesity, severe osteoarthritis of both knee joints and multiple wounds and recurrent bilateral lower extremity cellulitis. PAST SURGICAL HISTORY: Unremarkable. FAMILY HISTORY: Unremarkable. SOCIAL HISTORY: She is a resident at [facility] in [place]. She does not smoke, drink alcohol or use any recreational drugs. ALLERGIES: The patient has no known drug allergies. MEDICATIONS: She is on following medications; she was on nitrofurantoin 100 mg twice a day for urinary tract infection, baclofen 10 mg three times a day, amlodipine besylate 10 mg once a day, aspirin 81 mg once a day, hydrocodone/APAP one to two tablets every 4 hours as needed, morphine sulfate 20 mg per 5 mL solution 20 mg every 4 hours as needed, acetaminophen 1000 mg every 4-6 hours, gabapentin 200 mg 3 times a day, olanzapine 20 mg daily, alprazolam 0.5 mg 3 times a day as needed. She is on bisacodyl 10 mg suppositories rectally daily p.r.n. for constipation, pioglitazone 30 mg daily. She is on Glucagon 1 mg intramuscular as needed for hypoglycemia, nystatin powder topically twice a day. She is on triamcinolone acetonide 0.1% ointment apply topically twice a day. She is on Calmoseptine ointment twice a day, multivitamin with mineral 1 tablet once a day. She is on Pro-Stat liquid 30 mL p.o. twice a day. REVIEW OF SYSTEMS: As per history of present illness. PHYSICAL EXAMINATION: GENERAL: On arrival to the Emergency Room, she was somewhat pale, not jaundiced or cyanosed, no lymphadenopathy, no thyromegaly. No jugular venous distention, bilateral lower limb edema. VITAL SIGNS: Her heart rate was 100, blood pressure 121/56, temperature was 100.5, respiratory rate was 12 and oxygen saturation was 95% with 4 liters of oxygen. HEAD, EYES, EARS, NOSE AND THROAT: Showed normocephalic, atraumatic. NECK: Supple. HEART: Showed normal first and second heart sounds with no gallop, rub or murmur. CHEST: Clear to auscultation. No crepitation or rhonchi. ABDOMEN: Distended, soft, nontender. No guarding or rigidity. No organomegaly. All hernial orifices intact. Bowel sounds normal. NEUROLOGIC: She is awake, alert, responding appropriately. All cranial nerves intact. EXTREMITIES: She moves extremities without difficulty, although she is mostly bedbound and chair bound. LABORATORY DATA AND DIAGNOSTIC STUDIES: Her lab work on arrival showed a white cell count of 9800, hemoglobin 9.7, hematocrit 29.6, MCV 89 and platelet count 241,000 with normal manual differential. Her prothrombin time was 23. INR of 2.1. Her blood gases showed a pH of 7.44, pCO2 of 46, pO2 of 86, bicarbonate was 30 and oxygen saturation was 96% on FiO2 of 38%. Her urinalysis showed the urine was yellow, clear with a pH of 5, specific gravity 1.015. The urine was negative for protein, glucose, ketones. There was moderate amount of blood, negative for nitrite and leukocyte esterase. There were only 20-40 rbc's, no wbc's, and no bacteria. Her chest x-ray showed that there is stable cardiomegaly, small left-sided pleural effusion, interstitial prominence bilaterally, no lobar consolidation, no pneumothorax. Mediastinal hilar contours are grossly stable. ASSESSMENT AND PLAN: The impression is that the patient has cardiomegaly with small left-sided pleural effusion and interstitial prominence, may be seen in pulmonary edema. The patient was given 40 mg of IV Lasix, was admitted to continue all her current medications. We will consult the Cardiology team, the Wound Care Team and Physical and Occupational Therapy. JOSEPH XIONG MD DR: SINDI/mina JOB#: [id number] / [id number]
[2018-12-13 11:00] VITALS: BP 121/51
[2018-12-13] MEDS: FUROSEMIDE 40 MG/4 ML VIAL. IVP SCH (11:51)
[2018-12-13] MEDS: amLODIPine BESYLATE 10 MG TABLET PO SCH (11:53)
[2018-12-13] MEDS: BACLOFEN 10 MG TABLET. PO SCH ×3 (11:53→20:48)
[2018-12-13] MEDS: ASPIRIN CHEWABLE 81 MG TABLET. PO SCH (11:53)
[2018-12-13] MEDS: MULTIVITAMIN with MINERAL TABLET. PO SCH (11:53)
[2018-12-13] MEDS: POTASSIUM CHLORIDE 20 MEQ TABLET.ER. PO SCH ×2 (11:53→20:48)
[2018-12-13] MEDS: GABAPENTIN 100 MG CAPSULE. PO SCH ×3 (11:54→20:48)
[2018-12-13] MEDS ORDERED: HYDROcodone/APAP 5/325MG 1 TAB TABLET PO PRN (12:00)
[2018-12-13 15:00] VITALS: BP 125/58
--- NOTE | 2018-12-13 15:25 | CARD ---
MR#: [id number] Date of Study: 12/13/2018 Ordering Physician: TADEO PARRA, Referring Physician: JOSEPH XIONG, Tech: Concha Hung APPROVED REPORT EXAM: Two-dimensional and M-mode echocardiogram with Doppler and color Doppler. Other Information Quality : AverageHR: 76bpm INDICATION Congestive Heart Failure RISK FACTORS Hypertension Hyperlipidemia Diabetes 2D DIMENSIONS Left Atrium(2D)4.1 (1.6-4.0cm)IVSd1.2 (0.7-1.1cm) Aortic Root(2D)2.4 (2.0-3.7cm)LVDd5.9 (3.9-5.9cm) LVOT Diameter2.0 (1.8-2.4cm)PWd1.3 (0.7-1.1cm) LVDs4.0 (2.5-4.0cm)FS (%) 33.2 % SV107.0 mlLVEF(%)61.0 (>50%) Aortic Valve AoV Peak Beto.146.4cm/sAoV VTI39.1cm AO Peak GR.8.6mmHgLVOT Peak Beto.116.1cm/s AO Mean GR.5mmHgAVA (VMAX)2.37cm2 Mitral Valve MV E Peak Gr.89mmHg Pulmonary Valve PV Peak Tctelaps308.8cm/s Tricuspid Valve TR P. Vcyzsdtr967hd/sRAP INCLBMLQ4bfYj TR Peak Gr.44lpUbCJGB24zzJb LEFT VENTRICLE The Left Ventricle is moderately dilated. There is moderate concentric left ventricular hypertrophy. The left ventricular systolic function is low normal. The Ejection Fraction is 50%. There is slight g lobal hypokinesis of the left ventricle. Tissue Doppler imaging reveals moderate left ventricular matt stolic dysfunction. RIGHT VENTRICLE The right ventricle is borderline dilated. There is normal right ventricular wall thickness. The righ t ventricular systolic function is normal. ATRIA The left atrium is moderately dilated. The right atrium is mildly dilated. The interatrial septum is intact with no evidence for an atrial septal defect or patent foramen ovale as noted on 2-D or Dopple r imaging. AORTIC VALVE The aortic valve is normal in structure and function. Doppler and Color Flow revealed no significant aortic regurgitation. There is no significant aortic valvular stenosis. MITRAL VALVE The mitral valve is normal in structure and function. There is no evidence of mitral valve prolapse. There is no mitral valve stenosis. Doppler and Color-flow revealed trace mitral regurgitation. TRICUSPID VALVE The tricuspid valve is normal in structure and function. Doppler and Color Flow revealed trace tricus pid regurgitation. There is no tricuspid valve stenosis. PULMONIC VALVE The pulmonary valve is normal in structure and function. Doppler and Color Flow revealed trace pulmon ic valvular regurgitation. There is no pulmonic valvular stenosis. GREAT VESSELS The aortic root is normal in size. The IVC is normal in size and collapses <50% with inspiration. PERICARDIAL EFFUSION There is a trace pericardial effusion. Critical Notification Critical Value: No <Conclusion> The left ventricular systolic function is low normal. The Ejection Fraction is 50%. There is slight global hypokinesis of the left ventricle. Signed by : Noel Fish, Electronically Approved : 12/13/2018 15:24:50
--- NOTE | 2018-12-13 15:28 | PN ---
DATE: 12/13/2018 SUBJECTIVE: The patient is resting, slightly propped up in bed, in no apparent respiratory distress. She is awake, alert. On questioning her, she denied any chest pain or shortness of breath and had generally a good night sleep according to her. She was treated with IV Lasix 40 mg. Her blood culture showed the growth of gram-positive cocci in chains suggestive of strep. PHYSICAL EXAMINATION: GENERAL: When I examined her this morning, she looked pale, but no jaundice, cyanosis, or thyromegaly. No jugular venous distension. No lower limb edema. VITAL SIGNS: Her heart rate was 60, blood pressure 122/56, temperature was 97.9, respiratory rate was 18 and oxygen saturation was 95% on 2 liters of oxygen. HEAD, EYES, EARS, NOSE AND THROAT: Showed normocephalic, atraumatic. NECK: Supple. HEART: Showed normal first and second heart sounds. No gallop, rub or murmur. CHEST: Clear to auscultation. No crepitation or rhonchi. ABDOMEN: Distended, soft, nontender. No guarding or rigidity. No organomegaly. All hernial orifice intact. Bowel sounds normal. NEUROLOGIC: She is awake, alert, responding appropriately. All cranial nerves intact. She moves extremities without difficulty, although she is mostly bedbound, chair bound. She has multiple wounds in both lower extremities as she has grown Streptococcus gram-positive cocci, was started on vancomycin. I have already consulted the cardiology team as well as the wound care team. In the meanwhile, we will continue with all her other medications. JOSEPH XIONG MD DR: SINDI/mina JOB#: [id number] / [id number]
--- NOTE | 2018-12-13 15:50 | NUR ---
wound care patient seen per wound care consult. see wound assessment. patient has moisture associated dermatitis to the pannus and breasts and the left knee, the areas were cleaned and nystatin powder reapplied to the areas. quinten absorbant pads applied under the pannus to help absorb moisture. patient also has a left lateral heel DFU the wound was cleaned, measured and pictured and redressed with Iodoflex with a foam dressing, recommendations of changing every 3 days. patient also has a healing stage 4 wound to the left upper buttock that has a small opening, the area was cleaned, measured and pictured and recommendations of Calazime cream, prn. patient has IAD and stage 3 pressure ulcer to the left posterior thigh that was cleaned and redressed with Calazime cream, prn. patient has some IAD breakdown with stage 2 pressure ulcer to the coccyx, the area was cleaned, measured and redressed with Calazime cream, apply prn. patient needs to be turning every 2 hours. patient needs to keep heels in an off-loading position this was done so to the left heel at this time with a pillow, patient refused to have the right heel in an off-loading position at this time. notified RN about the POC and wound care will continue to f/u.
[2018-12-13] MEDS: VANCOMYCIN PER PHARMACY MC PRN (17:27)
--- NOTE | 2018-12-13 17:35 | NUR ---
Pharmacy Vancomycin Dosing Note S:Consulted to monitor and dose vancomycin started 12/13/18. O:ARIK HAWKINS is a 73 year old F with Bacteremia . Height: 5 feet, 4 inches Weight: 163.967515 kg [place] Body Weight: 54.70 Adjusted Body Weight: 98.02 Dosing Weight: Actual Other Antibiotics: NONE LABS: Last BUN: 28 Last Creatinine: 1.1 Creatinine Clearance: 72 mL/min Last WBC: 7.2 Last Procalcitonin: - Tmax (past 24 hours): 100.5 Microbiology: 12/13 GPC SUGGESTIVE OF STREP 2/4 BOTTLES (1 SET) I/O: 150/5 Drug Levels: Last level: on at Last dose given 12/13/18 at 1150 Vancomycin Dosing: Loading Dose: x1 Dosing Weight: Actual Target Trough: 15-20 A: Based on: WEIGHT, CRCL~72, P: 1. Initiate Vancomycin 2000 mg IV q12h 2. Follow up Trough level on 12/14/18 at 2330 3. Pharmacy will continue to monitor, follow and adjust therapy as needed. CRISTA GARCIA [facility], 12/13/18 [id number]
[2018-12-13 19:00] VITALS: BP 118/66
[2018-12-13 22:58] VITALS: BP 116/50
[2018-12-14] MEDS: VANCOMYCIN 2 GM in IV NORMAL SALINE 500ML BAG 500 ML IV SCH ×2 (00:21→12:30)
[2018-12-14 03:00] VITALS: BP 117/58
[2018-12-14 07:00] VITALS: BP 125/67
[2018-12-14 08:43] LABS: CHOLESTEROL/HDL RATIO 4.2
--- NOTE | 2018-12-14 08:49 | NUR ---
SW following pt for anticipated dc needs. Chart reviewed and discussed with RN. JEISON confirmed with Марина at [facility] nursing and rehab, pt is LTC resident and plan of return upon dc. Will continue to follow.
[2018-12-14] MEDS: glipiZIDE ER 2.5 MG TAB.ER.24 PO SCH (08:51)
[2018-12-14] MEDS: GABAPENTIN 100 MG CAPSULE. PO SCH ×3 (08:52→21:27)
[2018-12-14] MEDS: ASPIRIN CHEWABLE 81 MG TABLET. PO SCH (08:52)
[2018-12-14] MEDS: amLODIPine BESYLATE 10 MG TABLET PO SCH (08:52)
[2018-12-14] MEDS: MULTIVITAMIN with MINERAL TABLET. PO SCH (08:52)
[2018-12-14] MEDS: POTASSIUM CHLORIDE 20 MEQ TABLET.ER. PO SCH ×2 (08:52→21:26)
[2018-12-14] MEDS: OLANZapine 5 MG TABLET PO SCH (08:53)
[2018-12-14] MEDS: BACLOFEN 10 MG TABLET. PO SCH ×3 (08:53→21:27)
[2018-12-14] MEDS: TRIAMCINOLONE ACETONIDE 0.1% TOPICAL OINTMENT 15GM TUBE. TP SCH ×2 (08:54→22:36)
[2018-12-14] MEDS: FUROSEMIDE 40 MG/4 ML VIAL. IVP SCH (08:54)
[2018-12-14] MEDS: NYSTATIN TOPICAL POWDER 15GM BOTTLE. TP SCH ×2 (10:39→21:26)
--- NOTE | 2018-12-14 10:55 | PN ---
DATE: 12/14/2018 SUBJECTIVE: The patient is resting, slightly propped up in bed, no apparent distress. She is awake, alert. On questioning her, denied any complaint. She has some concern about her medication, that explained to her that we stopped her pioglitazone as it is contraindicated in people with congestive heart failure. Her blood sugar has been well controlled, and she was seen by the aeronautics teacher, and her echocardiogram showed that her left ventricular systolic function is low normal and ejection fraction is 50%. There is slight global hypokinesis of the left ventricle; however, she has no valvular abnormalities. Her blood culture has grown gram-positive cocci in chains suggestive of streptococcal infection. PHYSICAL EXAMINATION: GENERAL: When I examined her this morning, she looked well and was clearly in no apparent respiratory distress. No pallor, jaundice, cyanosis or thyromegaly. No jugular venous distension. No lower limb edema. VITAL SIGNS: Her heart rate was 75, blood pressure 117/58, temperature was 98, respiratory rate was 17 and oxygen saturation was 96% on 2 liters of oxygen. ASSESSMENT AND PLAN: 1. Acute on chronic systolic congestive heart failure, improving. 2. Atrial fibrillation, rate controlled on apixaban. However, the patient has been falling. 3. Acute hypoxic respiratory failure, improving. 4. Hypertension, well controlled. 5. Hyperlipidemia. 6. Acute kidney injury, improved. 7. Type 2 diabetes, well controlled, 8. Multiple lower extremity wounds. 9. Morbid obesity with obstructive sleep apnea. 10. Severe osteoarthritis of both knee joints with poor mobility. JOSEPH XIONG MD DR: SINDI/mina JOB#: [id number] / [id number]
[2018-12-14 11:16] VITALS: BP 131/54
--- NOTE | 2018-12-14 12:09 | PDOC ---
CARDIO Progress Notes Date and Time Date of Service 12/14/2018 Time of Evaluation 1130 Subjective Subjective: No Chest Pain, No shortness of breath, No Palpitations Vitals Vitals Vital Signs Date Time Temp Pulse Resp B/P (MAP) Pulse Ox O2 Delivery O2 Flow Rate FiO2 12/14/18 11:16 98.4 70 17 131/54 (79) 96 Nasal Cannula 2.0 98.4 Weight Weight [ ] Input and Output Intake and Output Intake and Output 12/14/18 07:00 Intake Total 2000 ml Output Total 2850 ml Balance -850 ml Intake Oral 1500 ml IV Total 500 ml Output Urine Total 2850 ml Laboratory Labs Laboratory Tests Test 12/13/18 11:58 12/13/18 16:57 12/13/18 20:32 12/14/18 05:50 Glucose (Fingerstick) 129 mg/dL (70-99) 130 mg/dL (70-99) 141 mg/dL (70-99) Creatinine 1.0 mg/dL (0.6-1.0) Estimated GFR (Cockcroft-Gault) 54.7 Triglycerides Level 98 mg/dL (0-150) Cholesterol Level 139 mg/dL (0-200) LDL Cholesterol, Calculated 86 mg/dL (0-100) VLDL Cholesterol, Calculated 20 mg/dL (0-40) Non-HDL Cholesterol Calculated 106 mg/dL (0-129) HDL Cholesterol 33 mg/dL (40-60) Cholesterol/HDL Ratio 4.2 Test 12/14/18 07:27 12/14/18 10:49 Glucose (Fingerstick) 84 mg/dL (70-99) 146 mg/dL (70-99) Microbiology Micro Microbiology 12/12/18 Blood Culture - Preliminary, Resulted NO GROWTH AFTER 1 DAY Physical Exam HEENT: Neck Supple W Full Motion Chest: Symmetric LUNGS: Other Heart: irregularly irregular (AFIB rate controlled) Abdomen: Soft N/T, Other (obese) Extremities: Other (LE lympehdema) Neurology: alert, oriented, follow commands Assessment Assessment 1. Acute hypoxic respiratory failure: better 2. Acute on chronic diastolic CHF: suspect underlying DAMIEN. EF 50% with mild global LV hypokinesis 3. Hypertension; controlled 4. Hyperlipidemia 5. ANDRZEJ; resolved 6. Diabetes, II; as per PCP 7. Chronic LE lymphedema/cellulitis 8. Chronic vs paroxysmal AFIB: rate controlled with episodes of HR in the upper 40s. 9. Debility with morbid obesity Recommendations 1. Will consider for MPI as an inpt as it would be difficult to arrange with transport issues in the past and her size. 2. Continue lasix therapy. BMP and Mg. 3. No rate controlling agents but HR is controlled with no RVR. Significant discussion with pt and daughter and pt would need to establish outpt cardiology care. Would not be able to place on CCB nor BB due to quinton episodes. Potential tachy quinton issues. MCOT would be ideal but [place] [facility] and more than likely MCOT would not be allowed. LINQ would be ideal. Discussed significantly with daughter in regards to talking to palliative care for goals of care but not interested. Also significant discussion in regards to stroke prevention and Pt and daughter does not want to continue eliquis due to falls she has been having and would like ASA instead. They understand the increase risk for stroke without eliquis. 4. 325 ECASA. Continue BP regimen and start on statin. ROGER MARTIN WARE SERVER Dec 14, 2018 12:09
[2018-12-14 12:44] LABS: CALCIUM 8.9 mg/dL (8.5-10.1); CREATININE 0.9 mg/dL (0.6-1.0); GFR 61.7; POTASSIUM 4.4 mmol/L (3.5-5.1)
[2018-12-14 14:40] VITALS: BP 128/62
--- NOTE | 2018-12-14 15:55 | NUR ---
SW faxed updates to [facility].
[2018-12-14 19:00] VITALS: BP 103/47
[2018-12-14] MEDS: ATORVASTATIN CALCIUM 10 MG TABLET. PO SCH (21:27)
[2018-12-14 22:48] VITALS: BP 147/59
[2018-12-15 00:34] LABS: VANC TR 28.7 mcg/mL (10.0-20.0)
[2018-12-15] MEDS: VANCOMYCIN PER PHARMACY MC PRN ×2 (02:00→13:17)
--- NOTE | 2018-12-15 02:01 | NUR ---
Pharmacy Vancomycin Dosing Note S:Consulted to monitor and dose vancomycin started 12/13/18. O:ARIK HAWKINS is a 73 year old F with Bacteremia . Height: 5 feet, 4 inches Weight: 165.179317 kg [place] Body Weight: 192.70 Adjusted Body Weight: 180.82 Dosing Weight: Actual Other Antibiotics: NONE LABS: Last BUN: 28 Last Creatinine: 1.1 Creatinine Clearance: 72 mL/min Last WBC: 7.2 Last Procalcitonin: - Tmax (past 24 hours): 100.5 Microbiology: 12/13 GPC SUGGESTIVE OF STREP 2/4 BOTTLES (1 SET) I/O: 150/5 Drug Levels: Last Trough level: 28.7 on 12/14/18 at 2330 Last dose given 12/13/18 at 1150 Vancomycin Dosing: Loading Dose: x1 Dosing Weight: Actual Target Trough: 15-20 A: Based on: TROUGH P: 1. Hold Vancomycin 2000 mg IV q12h 2. Follow up Random level on 12/15/18 at 1200 3. Pharmacy will continue to monitor, follow and adjust therapy as needed. SAVANNA CORBETT RPH, 12/15/18 020 Signed: 12/15/18 at 020 by SAVANNA CORBETT RPH PHA
[2018-12-15 03:00] VITALS: BP 140/65
[2018-12-15 07:00] VITALS: BP 141/56
[2018-12-15 08:01] LABS: HEMATOCRIT 29.9 % (36.0-47.0); HEMOGLOBIN 9.9 g/dL (12.0-15.5); RED BLOOD COUNT 3.35 x10^6/uL (3.50-5.40); WHITE BLOOD COUNT 5.5 x10^3/uL (4.0-11.0)
[2018-12-15 08:25] LABS: ALBUMIN 2.2 g/dL (3.4-5.0); ALBUMIN/GLOBULIN RATIO 0.4 (1.0-1.7); CALCIUM 9.5 mg/dL (8.5-10.1); GFR 54.7; MAGNESIUM 1.9 mg/dL (1.8-2.4); POTASSIUM 3.9 mmol/L (3.5-5.1); TOTAL BILIRUBIN 0.3 mg/dL (0.2-1.0); TOTAL PROTEIN 7.1 g/dL (6.4-8.2)
[2018-12-15] MEDS: BACLOFEN 10 MG TABLET. PO SCH ×3 (08:34→21:16)
[2018-12-15] MEDS: MULTIVITAMIN with MINERAL TABLET. PO SCH (08:34)
[2018-12-15] MEDS: OLANZapine 5 MG TABLET PO SCH (08:34)
[2018-12-15] MEDS: POTASSIUM CHLORIDE 20 MEQ TABLET.ER. PO SCH ×2 (08:35→21:17)
[2018-12-15] MEDS: ASPIRIN ENTERIC COATED 325 MG TABLET.DR. PO SCH (08:35)
[2018-12-15] MEDS: GABAPENTIN 100 MG CAPSULE. PO SCH ×3 (08:35→21:17)
[2018-12-15] MEDS: glipiZIDE ER 2.5 MG TAB.ER.24 PO SCH (08:35)
[2018-12-15] MEDS: amLODIPine BESYLATE 10 MG TABLET PO SCH (08:36)
[2018-12-15] MEDS: FUROSEMIDE 40 MG/4 ML VIAL. IVP SCH (08:36)
[2018-12-15] MEDS: NYSTATIN TOPICAL POWDER 15GM BOTTLE. TP SCH ×2 (08:41→21:00)
[2018-12-15] MEDS: TRIAMCINOLONE ACETONIDE 0.1% TOPICAL OINTMENT 15GM TUBE. TP SCH ×2 (08:45→21:00)
--- NOTE | 2018-12-15 09:13 | PDOC ---
CARDIO Progress Notes Date and Time Date of Service 12/15/2018 Time of Evaluation 0910 Subjective Subjective: No Chest Pain, No shortness of breath, No Palpitations Vitals Vitals Vital Signs Date Time Temp Pulse Resp B/P (MAP) Pulse Ox O2 Delivery O2 Flow Rate FiO2 12/15/18 08:36 81 114/46 12/15/18 07:00 98.1 17 93 Nasal Cannula 2.0 98.1 Weight Weight [ ] Input and Output Intake and Output Intake and Output 12/15/18 07:00 Intake Total 600 ml Output Total 3875 ml Balance -3275 ml Intake Oral 600 ml Output Urine Total 3875 ml Laboratory Labs Laboratory Tests Test 12/14/18 10:49 12/14/18 20:43 12/14/18 23:40 12/15/18 06:40 Glucose (Fingerstick) 146 mg/dL (70-99) 115 mg/dL (70-99) Vancomycin Level Trough 28.7 mcg/mL (10.0-20.0) Vancomycin Last Dose Date 12/14/18 Vancomycin Last Dose Time 0000 Sodium Level 146 mmol/L (136-145) Potassium Level 3.9 mmol/L (3.5-5.1) Chloride Level 105 mmol/L (98-107) Carbon Dioxide Level 34 mmol/L (21-32) Anion Gap 7 (6-14) Blood Urea Nitrogen 30 mg/dL (7-20) Creatinine 1.0 mg/dL (0.6-1.0) Estimated GFR (Cockcroft-Gault) 54.7 BUN/Creatinine Ratio 30 (6-20) Glucose Level 86 mg/dL (70-99) Calcium Level 9.5 mg/dL (8.5-10.1) Magnesium Level 1.9 mg/dL (1.8-2.4) Total Bilirubin 0.3 mg/dL (0.2-1.0) Aspartate Amino Transf (AST/SGOT) 19 U/L (15-37) Alanine Aminotransferase (ALT/SGPT) 15 U/L (14-59) Alkaline Phosphatase 68 U/L (46-116) Total Protein 7.1 g/dL (6.4-8.2) Albumin 2.2 g/dL (3.4-5.0) Albumin/Globulin Ratio 0.4 (1.0-1.7) Test 12/15/18 06:48 3/20/19 07:36 White Blood Count 5.5 x10^3/uL (4.0-11.0) Red Blood Count 3.35 x10^6/uL (3.50-5.40) Hemoglobin 9.9 g/dL (12.0-15.5) Hematocrit 29.9 % (36.0-47.0) Mean Corpuscular Volume 89 fL (79-100) Mean Corpuscular Hemoglobin 30 pg (25-35) Mean Corpuscular Hemoglobin Concent 33 g/dL (31-37) Red Cell Distribution Width 15.0 % (11.5-14.5) Platelet Count 280 x10^3/uL (140-400) Glucose (Fingerstick) 79 mg/dL (70-99) Microbiology Micro Microbiology 12/12/18 Blood Culture - Preliminary, Resulted NO GROWTH AFTER 2 DAYS Physical Exam HEENT: Neck Supple W Full Motion Chest: Symmetric LUNGS: Other (diminsihed bases) Heart: irregularly irregular (AFIB rate controlled) Abdomen: Soft N/T, Other (obese) Extremities: Other (LE lympehdema) Neurology: alert, oriented, follow commands Assessment Assessment 1. Acute hypoxic respiratory failure: better 2. Acute on chronic diastolic CHF: suspect underlying DAMIEN. EF 50% with mild global LV hypokinesis 3. Hypertension; controlled 4. Hyperlipidemia 5. ANDRZEJ; resolved 6. Diabetes, II; as per PCP 7. Chronic LE lymphedema/cellulitis 8. Chronic vs paroxysmal AFIB: rate controlled with episodes of HR in the upper 40s. Burst at times 9. Debility with morbid obesity Recommendations 1. 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 Unable to provide rate controlling agents due to bradycardia episodes. No past syncopal spells, Will discuss with primary lehr stripper. 2. Continue lasix therapy 3. Significant discussion with pt and daughter and pt would need to establish outpt cardiology care. would need MCOT but doubt [facility] would allow this. .Also discussed significantly with daughter in regards to talking to palliative care for goals of care but not interested. Again discussion with Pt and daughter does not want to continue eliquis due to falls she has been having and would like ASA instead. They understand the increase risk for stroke without eliquis. 4. 325 ECASA. Continue BP regimen and statin 5. Consider for outpt stress test once cellulitis treatment is competed. ROGER MARTIN APRN Dec 15, 2018 09:13
[2018-12-15 11:00] VITALS: BP 110/58
--- NOTE | 2018-12-15 11:00 | NUR ---
she was incontinent of small amount of liquid stool. new gown and repositioned , cream added to coccyx, nystatin to folds and Panus. she had good diuresis from iv Lasix
[2018-12-15] MEDS ORDERED: VANCOMYCIN RANDOM LEVEL. MC ONE (12:00)
--- NOTE | 2018-12-15 13:23 | NUR ---
Pharmacy Vancomycin Dosing Note S:Consulted to monitor and dose vancomycin started 12/13/18. O:ARIK HAWKINS is a 73 year old F with Bacteremia . Height: 5 feet, 4 inches Weight: 165.770102 kg [place] Body Weight: 54.70 Adjusted Body Weight: 98.02 Dosing Weight: Actual Other Antibiotics: NONE LABS: Last BUN: 30 Last Creatinine: 1.0 Creatinine Clearance: 72 mL/min Last WBC: 5.5 Last Procalcitonin: - Tmax (past 24 hours): 98.0 Microbiology: 12/13 GPC SUGGESTIVE OF STREP 2/4 BOTTLES (1 SET) I/O: 600/3875 Drug Levels: Last Random level: 22.2 on 12/15/18 at 1200 Last dose given 12/14/18 at 1230 Vancomycin Dosing: Loading Dose: x1 Dosing Weight: Actual Target Trough: 15-20 A: Based on: supratherapeutic random level, expected rate of excretion of drug, P: 1. Initiate Vancomycin 2000 mg IV q24h at 0100 12/16, 2. Follow up Trough level on 12/18/18 at 0030 3. Pharmacy will continue to monitor, follow and adjust therapy as needed. CRISTA GARCIA, [facility], 12/15/18 [id number]
[2018-12-15 15:00] VITALS: BP 119/60
[2018-12-15 19:00] VITALS: BP 115/66
[2018-12-15] MEDS: LACTOBACILLUS RHAMNOSUS GG 1 CAPSULE. PO SCH (21:16)
[2018-12-15] MEDS: ATORVASTATIN CALCIUM 10 MG TABLET. PO SCH (21:17)
--- NOTE | 2018-12-15 22:53 | PN ---
DATE: 12/15/2018 SUBJECTIVE: The patient is resting slightly propped up in bed, in no apparent respiratory distress. She is awake, alert. On questioning her, she denied any complaint. Nursing staff did not voice any concern. She had an uneventful night. PHYSICAL EXAMINATION: GENERAL: When I examined her, she looked pale, but no jaundice, cyanosis, or thyromegaly. No jugular venous distension. No lower limb edema. VITAL SIGNS: Her heart rate was 81, blood pressure 114/46, temperature was 98.1, respiratory rate was 17 and oxygen saturation was 93% on 2 liters of oxygen. HEAD, EYES, EARS, NOSE AND THROAT: Showed normocephalic, atraumatic. NECK: Supple. HEART: Showed normal first and second heart sounds with no gallop, rub or murmur. CHEST: Clear to auscultation. No crepitation or rhonchi. ABDOMEN: Distended, soft, nontender. NEUROLOGIC: She is awake, alert, responding appropriately. Cranial nerves intact. She moves her extremities without difficulty, although she is mostly bedbound, chair bound. Her intake over the last 24 hours was 2000, output was 2850. LABORATORY DATA: This morning showed a serum sodium 146, potassium 3.9, chloride 105, bicarbonate 34, anion gap of 7, BUN 30, creatinine 1, estimated GFR was 55 mL per minute. Her glucose was 86, calcium was 9.5, magnesium was 1.9. Total bilirubin, AST, ALT, alkaline phosphatase were normal. Total protein was 7.1, albumin was 2.2. Her white cell count was 5500, hemoglobin 10, hematocrit 30, MCV 89 and platelet count 280,000. Her nasal screen for MRSA by PCR was positive. Her vancomycin trough level was 28.7. ASSESSMENT: 1. Acute hypoxic respiratory failure, much improved. 2. Gxuun-wx-cmkqxle diastolic congestive heart failure. 3. The patient has morbid obesity, obstructive sleep apnea. Ejection fraction was 50% with mild global left ventricular hypokinesis. 4. Hypertension, well controlled. 5. Hyperlipidemia. 6. Acute kidney injury, resolved. 7. Type 2 diabetes, seems will controlled. 8. Chronic lower extremity lymphedema, cellulitis for which she is on antibiotic. 9. Chronic versus paroxysmal atrial fibrillation, rate controlled. 10. Debility with morbid obesity. PLAN: The patient will continue on aspirin. We have discontinued the Eliquis. Continue with IV antibiotic. I am awaiting for the result of the sensitivity and once that is available, she can be discharged back to [place] to continue the process of rehabilitation there. JOSEPH XIONG MD DR: SINDI/mina JOB#: [id number] / [id number]
[2018-12-15 23:00] VITALS: BP 121/71
[2018-12-15 23:12] LABS: HEMOGLOBIN A1C 5.7 % (4.8-5.6)
[2018-12-16] MEDS: VANCOMYCIN 2 GM in IV NORMAL SALINE 500ML BAG 500 ML IV SCH (01:32)
[2018-12-16 03:08] VITALS: BP 107/50
[2018-12-16 06:12] LABS: GFR 54.7
[2018-12-16 07:00] VITALS: BP 122/59
[2018-12-16] MEDS: NYSTATIN TOPICAL POWDER 15GM BOTTLE. TP SCH ×2 (09:00→20:36)
[2018-12-16] MEDS: BACLOFEN 10 MG TABLET. PO SCH ×3 (09:22→20:35)
[2018-12-16] MEDS: OLANZapine 5 MG TABLET PO SCH (09:22)
[2018-12-16] MEDS: glipiZIDE ER 2.5 MG TAB.ER.24 PO SCH (09:22)
[2018-12-16] MEDS: POTASSIUM CHLORIDE 20 MEQ TABLET.ER. PO SCH ×2 (09:22→20:35)
[2018-12-16] MEDS: ASPIRIN ENTERIC COATED 325 MG TABLET.DR. PO SCH (09:23)
[2018-12-16] MEDS: GABAPENTIN 100 MG CAPSULE. PO SCH ×3 (09:23→20:35)
[2018-12-16] MEDS: amLODIPine BESYLATE 10 MG TABLET PO SCH (09:23)
[2018-12-16] MEDS: FUROSEMIDE 40 MG/4 ML VIAL. IVP SCH (09:23)
[2018-12-16] MEDS: MULTIVITAMIN with MINERAL TABLET. PO SCH (09:23)
[2018-12-16] MEDS: LACTOBACILLUS RHAMNOSUS GG 1 CAPSULE. PO SCH ×2 (09:23→20:34)
[2018-12-16] MEDS: TRIAMCINOLONE ACETONIDE 0.1% TOPICAL OINTMENT 15GM TUBE. TP SCH ×2 (09:24→20:35)
[2018-12-16 11:00] VITALS: BP 133/73
[2018-12-16] MEDS ORDERED: MAGNESIUM HYDROXIDE 2,400 MG/30 ML ORAL.SUSP. PO ONE (12:15)
--- NOTE | 2018-12-16 12:46 | PDOC ---
CARDIO Progress Notes Date and Time Date of Service 12/16/18 Time of Evaluation 1210 Subjective Subjective: No Chest Pain, No shortness of breath, No Palpitations Vitals Vitals Vital Signs Date Time Temp Pulse Resp B/P (MAP) Pulse Ox O2 Delivery O2 Flow Rate FiO2 12/16/18 11:00 98.2 75 17 133/73 (93) 96 Nasal Cannula 2.0 98.2 Weight Weight [ ] Input and Output Intake and Output Intake and Output 12/16/18 06:59 Intake Total 1600 ml Output Total 4775 ml Balance -3175 ml Intake Oral 1100 ml IV Total 500 ml Output Urine Total 4775 ml Laboratory Labs Laboratory Tests Test 12/15/18 20:56 12/16/18 01:35 12/16/18 04:35 12/16/18 07:19 Glucose (Fingerstick) 102 mg/dL (70-99) 109 mg/dL (70-99) 87 mg/dL (70-99) Creatinine 1.0 mg/dL (0.6-1.0) Estimated GFR (Cockcroft-Gault) 54.7 Test 12/16/18 11:37 Glucose (Fingerstick) 108 mg/dL (70-99) Microbiology Micro Microbiology 12/12/18 Blood Culture - Preliminary, Resulted NO GROWTH AFTER 3 DAYS Physical Exam HEENT: Neck Supple W Full Motion Chest: Symmetric LUNGS: Other (diminsihed bases) Heart: irregularly irregular (AFIB rate controlled) Abdomen: Soft N/T, Other (obese) Extremities: Other (LE lympehdema) Neurology: alert, oriented, follow commands Assessment Assessment 1. Acute hypoxic respiratory failure: improved 2. Acute on chronic diastolic CHF: suspect underlying DAMIEN. EF 50% with mild global LV hypokinesis 3. Hypertension; controlled 4. Hyperlipidemia; statin. LDL 86 5. ANDRZEJ; resolved 6. Diabetes, II; as per PCP 7. Chronic LE lymphedema/cellulitis 8. Chronic vs paroxysmal AFIB: rate mainly controlled, but having occasional bursts of RVR and periods of mild bradycardia. Poss tachy-quinton. 9. Debility with morbid obesity Recommendations Avoid AV ana blocking agents due to bradycardia episodes. Monitor telemetry. If patient having frequent bursts of AFIB with RVR, consider for potential PPM implantation with suspected tachy-qiunton syndrome. ASA for stroke prevention as patient/family declines OAC due to weakness/ debility and multiple recent falls. Supportive care TADEO PARRA APRN Dec 16, 2018 12:46
[2018-12-16] MEDS: VANCOMYCIN PER PHARMACY MC PRN (13:35)
--- NOTE | 2018-12-16 14:40 | PDOC ---
Infectious Disease Note Vital Sign Vital Signs Vital Signs Date Time Temp Pulse Resp B/P (MAP) Pulse Ox O2 Delivery O2 Flow Rate FiO2 12/16/18 11:00 98.2 75 17 133/73 (93) 96 Nasal Cannula 2.0 98.2 Labs Lab Laboratory Tests Test 12/15/18 20:56 12/16/18 01:35 12/16/18 04:35 12/16/18 07:19 Glucose (Fingerstick) 102 mg/dL (70-99) 109 mg/dL (70-99) 87 mg/dL (70-99) Creatinine 1.0 mg/dL (0.6-1.0) Estimated GFR (Cockcroft-Gault) 54.7 Test 12/16/18 11:37 Glucose (Fingerstick) 108 mg/dL (70-99) Micro Microbiology 12/12/18 Blood Culture - Preliminary, Resulted NO GROWTH AFTER 3 DAYS Objective Assessment BC + with G + cocci Fever Leg cellulitis S/P Fall Super morbid obesity Plan Plan of Care vanc and cefepime supportive care check cultures MIKE BARNARD MD Dec 16, 2018 14:40
[2018-12-16 15:00] VITALS: BP 106/57
[2018-12-16 19:00] VITALS: BP 120/60
[2018-12-16] MEDS: ATORVASTATIN CALCIUM 10 MG TABLET. PO SCH (20:35)
[2018-12-16] MEDS ORDERED: CEFEPIME HCL IV Push 1 GM VIAL. IVP SCH (21:00)
[2018-12-16 23:00] VITALS: BP 123/61
--- NOTE | 2018-12-16 23:42 | PN ---
DATE: 12/16/2018 SUBJECTIVE: The patient is resting slightly propped up in bed, in no apparent distress. She denied any complaint. Nursing staff did not voice any concern. Her blood culture has grown gram-positive cocci, suggestive of streptococcus; however, the identification and sensitivity is still pending at the time of this dictation. PHYSICAL EXAMINATION: GENERAL: When I examined her, she was pale, but not jaundiced or cyanosed from thyromegaly. No jugular venous distention. No lower limb edema. VITAL SIGNS: Her heart rate was 75, blood pressure 133/73, temperature was 98.2, respiratory rate was 17 and oxygen saturation was 96% on 2 liters of oxygen. HEENT: Examination of the head, eyes, ears, nose and throat showed normocephalic, atraumatic. NECK: Supple. HEART: Showed normal first and second heart sounds. No gallop, rub or murmur. CHEST: Clear to auscultation. No crepitation or rhonchi. ABDOMEN: Distended, soft and nontender. No guarding or rigidity. No organomegaly. All hernial orifices intact. Bowel sounds normal. NEUROLOGIC: She was awake, alert and responding appropriately. All cranial nerves intact. She moved upper extremities to much good extent than the lower extremities. She was mostly bedbound, chair bound. She did manage to walk a short distance with a walker, had multiple wounds in both lower extremities. Her intake over the last 24 hours was 600, output was 3875. LABORATORY DATA: Her lab work as of yesterday showed a white cell count 5500, hemoglobin 10, hematocrit 30, MCV 89 and platelet count 280,000. Her chemistry as of this morning showed that serum creatinine is 1. Blood sugar seems to be well controlled. ASSESSMENT: 1. Acute hypoxic respiratory failure, much improved. 2. Cqvyl-pq-ptatakh diastolic congestive heart failure, well compensated. 3. Morbid obesity and obstructive sleep apnea. 4. Hypertension. 5. Hyperlipidemia. 6. Acute kidney injury, resolved. 7. Type 2 diabetes mellitus, seems to be well controlled. 8. Chronic lower extremity lymphedema and cellulitis. She is on vancomycin. 9. Chronic versus paroxysmal atrial fibrillation, rate controlled. We discontinued her Eliquis. 10. Debility with morbid obesity. 11. The patient has grown gram-positive cocci, the identification and sensitivity is still pending. PLAN: I would consult the Infectious Disease to see if there is any further workup that needs to be done. Otherwise, she can be discharged home tomorrow on oral antibiotics. JOSEPH XIONG MD DR: SINDI/mina JOB#: [id number] / [id number]
--- NOTE | 2018-12-17 00:51 | CONS ---
DATE OF CONSULTATION: 12/16/2018 REQUESTING PHYSICIAN: Dr. Andino. REASON FOR CONSULTATION: Blood culture positive. HISTORY OF PRESENT ILLNESS: This is a 73-year-old female who is from group home, who was brought in because she says she was falling and felt weak and not feeling well. The patient did have fever when she came in. At that time, blood culture done, which subsequently turned positive, hence consultation. Her blood culture is positive with Gram-positive cocci in chains, 2 out of 4 bottle, identification is pending. The patient is receiving vancomycin and consult has been requested. The patient denies any nausea, vomiting, diarrhea. Denies any chest pain, shortness of breath, abdominal pain, urinary symptoms or bowel symptoms. The patient has super morbid obesity and before the fall, she was able to walk barely slightly with a walker, she says and she has been in a group home for 3 years. PAST MEDICAL HISTORY: Positive for super morbid obesity, atrial fibrillation, congestive heart failure, hypertension, hyperlipidemia, venous insufficiency, large pannus with yeast infection under the pannus. SOCIAL HISTORY: Negative for smoking, alcohol or illicit drug use. The patient lives in a group home. CURRENT MEDICATIONS: Reviewed. The patient is on vancomycin. REVIEW OF SYSTEMS: As per HPI, all other systems reviewed are negative. PHYSICAL EXAMINATION: GENERAL: Alert, oriented female, not in any distress. VITAL SIGNS: Stable, afebrile. HEENT: NAD. NECK: Supple, no JVP, no lymphadenopathy. LUNGS: Clear. HEART: S1, S2 regular. ABDOMEN: Benign, very large pannus and yeast infection under the skin with some minor skin breakdown, not bad actually. EXTREMITIES: The patient does have erythema and leakage with redness on the right leg more so than the left, which is chronic stasis dermatitis and venous insufficiency and now it is actually leaking. Secondary infection from there cannot be ruled out. NEUROLOGIC: The patient is alert, awake, appropriately answers. Does move extremities, although cannot move much. LABORATORY DATA: White count is 5.5, hemoglobin 9.9, platelets are normal. BUN and creatinine is 30 and 1.0. Urinalysis showed 20-40 rbc's. Vancomycin trough yesterday was 28.7. MRSA screen is positive. Blood culture as I mentioned earlier. Chest x-ray showed cardiomegaly with effusion. IMPRESSION: 1. Blood culture positive with Gram-positive cocci in pairs and chains, probably group A or B strep, could be enterococcus. 2. Fever. 3. Right lower extremity stasis dermatitis and venous insufficiency with even possible acute cellulitis. 4. Large pannus with yeast infection underneath. 5. Super morbid obesity. 6. Atrial fibrillation. 7. Congestive heart failure. 8. Hypertension. RECOMMENDATIONS: Would continue vancomycin, add cefepime and local antifungal, supportive care and we will follow the blood cultures and adjust. Overall, long-term prognosis is poor. Thank you very much, Dr. Andino, for giving me the opportunity to participate in this patient's care. MIKE BARNARD MD DR: YU/mina JOB#: [id number] / [id number]
[2018-12-17] MEDS: VANCOMYCIN 2 GM in IV NORMAL SALINE 500ML BAG 500 ML IV SCH (01:08)
[2018-12-17 03:00] VITALS: BP 127/60
[2018-12-17 05:26] LABS: CREATININE 1.1 mg/dL (0.6-1.0)
[2018-12-17 07:25] VITALS: BP 132/59
[2018-12-17] MEDS: glipiZIDE ER 2.5 MG TAB.ER.24 PO SCH (08:00)
[2018-12-17] MEDS: NYSTATIN TOPICAL POWDER 15GM BOTTLE. TP SCH (09:00)
[2018-12-17] MEDS: TRIAMCINOLONE ACETONIDE 0.1% TOPICAL OINTMENT 15GM TUBE. TP SCH (09:00)
--- NOTE | 2018-12-17 09:43 | PDOC ---
Infectious Disease Note Subjective Subjective feeling better ROS ROS no n/v/d/sob Vital Sign Vital Signs Vital Signs Date Time Temp Pulse Resp B/P (MAP) Pulse Ox O2 Delivery O2 Flow Rate FiO2 12/17/18 07:25 97.6 56 20 132/59 (83) 97 Nasal Cannula 2.0 97.6 Physical Exam PHYSICAL EXAM GENERAL: Alert, oriented female, not in any distress. VITAL SIGNS: Stable, afebrile. HEENT: NAD. NECK: Supple, no JVP, no lymphadenopathy. LUNGS: Clear. HEART: S1, S2 regular. ABDOMEN: Benign, very large pannus and yeast infection under the skin with some minor skin breakdown, not bad actually. EXTREMITIES: The patient does have erythema and leakage with redness on the right leg more so than the left, which is chronic stasis dermatitis and venous insufficiency and now it is actually leaking. Secondary infection from there cannot be ruled out. NEUROLOGIC: The patient is alert, awake, appropriately answers. Does move extremities, although cannot move much. Labs Lab Laboratory Tests Test 12/16/18 11:37 12/16/18 16:28 12/16/18 19:46 12/17/18 03:55 Glucose (Fingerstick) 108 mg/dL (70-99) 120 mg/dL (70-99) 120 mg/dL (70-99) Creatinine 1.1 mg/dL (0.6-1.0) Estimated GFR (Cockcroft-Gault) 49.0 Test 12/17/18 07:28 Glucose (Fingerstick) 74 mg/dL (70-99) Micro BLOOD CULTURE LC Final Final report BLD CULT RESULT 1 Final Staphylococcus aureus Recovered from aerobic and anaerobic bottles. Most isolates of Staphylococcus sp. produce a beta- lactamase enzyme rendering them resistant to penicillin. Please contact the laboratory if penicillin is being considered for therapy. BLD CULT RESULT 2 Final Comment Beta hemolytic Streptococcus, group A Recovered from aerobic and anaerobic bottles. Penicillin and ampicillin are drugs of choice for treatment of beta-hemolytic streptococcal infections. Susceptibility testing of penicillins and other beta-lactam agents approved by the FDA for treatment of beta-hemolytic streptococcal infections need not be performed routinely because nonsusceptible isolates are extremely rare in any beta-hemolytic streptococcus and have not been reported for Streptococcus pyogenes (group A). (CLSI) ANTIMICROBIAL SUSCEPTIBILITY Final Comment S = Susceptible; I = Intermediate; R = Resistant P = Positive; N = Negative MICS are expressed in micrograms per mL Antibiotic RSLT#1 RSLT#2 RSLT#3 RSLT#4 Ciprofloxacin R>=8 Gentamicin S<=0.5 Levofloxacin R>=8 Linezolid S =2 Moxifloxacin R =4 Nitrofurantoin S<=16 CONTINUED ON NEXT PAGE RUN DATE: 12/16/18 PAGE 2 RUN TIME: 1810 [facility] [address] [place] [address] Vineet Infante M.D., Jewel Gauger SPEC: [id number] PATIENT: ARIK HAWKINS [id number] ( Continued) Procedure Result ANTIMICROBIAL SUSCEPTIBILITY Final (continued) Oxacillin S =0.5 Quinupristin/Dalfopristin S<=0.25 Rifampin S<=0.5 Tetracycline S<=1 Trimethoprim/Sulfa S<=10 Vancomycin S =1 Performed at: - [facility] [address], [place], [place] [id number] Mower Sharpener: TRACY Krishnamurthy MD, Phone: [phone] Objective Assessment BC + MSSA and Group A strep Fever Leg cellulitis S/P Fall Super morbid obesity Plan Plan of Care vanc and cefepime,, change to cefazolin midline ok to d/c to NH , need 5 wks f/u with us in 2 wks supportive care check cultures MIKE BARNARD MD Dec 17, 2018 09:43
--- NOTE | 2018-12-17 10:42 | NUR ---
SW following pt. Spoke with ID and pt will need 4 weeks of Cephazolin q8hrs. JEISON left a message to Justa at [facility] to see if they are able to accommodate. Orders for IV abx faxed to [facility]. Will continue to follow.
--- NOTE | 2018-12-17 11:01 | SNU/HH DC ---
DISCHARGE ORDERS DISCHARGE INFORMATION: FINAL DIAGNOSIS Problems Medical Problems: (1) CHF (congestive heart failure) Status: Acute CONDITION ON DISCHARGE: Stable CODE STATUS: Code Status: Full LONGTERM: SNF STAY <30 DAYS: Yes POST DISCHARGE ORDERS: ACTIVITY ORDERS: Activity as tolerated WEIGHT BEARING STATUS: As tolerated BATHING ORDERS: Shower-keep dressing dry, No Tub Bath until see Dr. MARX AFTER DISCHARGE: Cardiac WOUND/INCISION CARE: Keep wound/cast CDI TREATMENT/EQUIPMENT ORDERS: ADAPTIVE EQUIPMENT NEEDED: None Physical Therapy For: Evalulation/Treatment Occupational Therapy For: Evaluation/Treatment DISCHARGE MEDICATIONS: Home Meds Reported Medications Gabapentin (GABAPENTIN ) 100 Mg Capsule, 200 MG PO TID for NEUROGENIC PAIN, CAP 12/12/18 Menthol/Zinc Oxide (CALMOSEPTINE OINTMENT) 3.5 Gm Oint.pack, 3.5 GM TP BID for reddness, MISC 12/12/18 Baclofen (BACLOFEN) 10 Mg Tablet, 1 TAB PO TID for muscle spasms, #90 TAB 2 Refills 12/12/18 Triamcinolone Acetonide (TRIAMCINOLONE ACETONIDE 0.1% OINT) 15 Gm Oint...g., 1 PRESTON TP BID for WOUND CARE, #1 TUBE MIX WITH EUCERIN DIRECTED BY PHYSICIAN 02/17/18 Morphine Sulfate (MORPHINE SULFATE) 20 Mg/5 Ml Solution, 20 MG PO PRN Q4HRS PRN for PAIN, MISC 02/17/18 Amino Acids/Protein Hydrolys (Pro-Stat Liquid) 30 Ml Liquid, 30 ML PO, LIQUID 02/17/18 Acetaminophen (MAPAP) 500 Mg Capsule, 1000 MG PO PRN Q4-6HRS PRN for PAIN, CAP 07/10/17 Hydrocodone/Apap 5-325 (NORCO 5-325 TABLET) 1 Each Tablet, 1-2 TAB PO Q4HRS, # 40 TAB 07/10/17 Glucagon,Human Recombinant (GLUCAGON EMERGENCY KIT) 1 Mg Kit, 1 MG IM PRN Q15MIN PRN for LOW BLOOD SUGAR, #2 KIT 5 Refills 07/10/17 Bisacodyl (BISCOLAX) 10 Mg Supp.rect, 10 MG RC PRN DAILY PRN for CONSTIPATION, SUPP.RECT 07/10/17 Alprazolam (ALPRAZOLAM) 0.5 Mg Tablet, 1 TAB PO PRN TID PRN for ANXIETY, #30 TAB 10/13/17 Nystatin (NYAMYC) 15 Gm Powder, 15 GM TP BID, MISC 07/10/17 Multivits,Th W-Fe,Other Min (THERA-M) 1 Each Tablet, 1 EACH PO DAILY, TAB 07/10/17 Pioglitazone Hcl (PIOGLITAZONE HCL) 30 Mg Tablet, 30 MG PO DAILY, TAB 07/10/17 Olanzapine (OLANZAPINE) 20 Mg Tablet, 20 MG PO DAILY, TAB 07/10/17 Aspirin (ASPIRIN) 81 Mg Tab.chew, 1 TAB PO DAILY, #30 TAB 3 Refills 07/10/17 Amlodipine Besylate (AMLODIPINE BESYLATE) 10 Mg Tablet, 10 MG PO DAILY, TAB 07/10/17 Discontinued Reported Medications Nitrofurantoin Monohyd/M-Cryst (MACROBID 100 MG CAPSULE) 100 Mg Capsule, 1 CAP PO BID for uti for 7 Days, #14 CAP 12/12/18 Bisacodyl (DULCOLAX) 10 Mg Supp.rect, 10 MG RC PRN DAILY PRN for CONSTIPATION, SUPP.RECT 0 Refills 02/17/18 Hydrocodone Bit/Acetaminophen (HYDROCODONE-APAP 5-325 ) 1 Each Tablet, 1 TAB PO PRN Q4HRS PRN for PAIN, TAB 0 Refills 02/17/18 Acetaminophen (MAPAP) 500 Mg Capsule, 500 MG PO PRN Q6HRS PRN for PAIN, CAP 02/17/18 Citalopram Hydrobromide (CITALOPRAM HBR) 10 Mg Tablet, 1 TAB PO DAILY, #30 TAB 3 Refills 02/17/18 Acetaminophen (MAPAP) 500 Mg Tablet, 500 MG PO, TAB 10/13/17 Promethazine Hcl (PROMETHAZINE HCL) 12.5 Mg Tablet, 12.5 MG PO Q6H PRN for NAUSEA/VOMITING, TAB 10/13/17 Zinc Sulfate (ZINC-220) 220 Mg Capsule, 220 MG PO DAILY, CAP 10/13/17 Ascorbic Acid (VITAMIN C) 500 Mg Tablet, 500 MG PO BID, TAB 10/13/17 JOSEPH XIONG MD Dec 17, 2018 11:01
[2018-12-17 11:03] VITALS: BP 119/60
[2018-12-17] MEDS: OLANZapine 5 MG TABLET PO SCH (11:21)
[2018-12-17] MEDS: POTASSIUM CHLORIDE 20 MEQ TABLET.ER. PO SCH (11:22)
[2018-12-17] MEDS: BACLOFEN 10 MG TABLET. PO SCH (11:23)
[2018-12-17] MEDS: LACTOBACILLUS RHAMNOSUS GG 1 CAPSULE. PO SCH (11:23)
[2018-12-17] MEDS: ASPIRIN ENTERIC COATED 325 MG TABLET.DR. PO SCH (11:23)
[2018-12-17] MEDS: GABAPENTIN 100 MG CAPSULE. PO SCH (11:23)
[2018-12-17] MEDS: MULTIVITAMIN with MINERAL TABLET. PO SCH (11:23)
[2018-12-17 11:24] VITALS: BP 119/60
[2018-12-17] MEDS: amLODIPine BESYLATE 10 MG TABLET PO SCH (11:24)
[2018-12-17] MEDS: FUROSEMIDE 40 MG/4 ML VIAL. IVP SCH (11:25)
[2018-12-17] MEDS ORDERED: ceFAZolin SODIUM 2 GM in IV DEXTROSE 5% 50 ML IV SCH (12:00)
--- NOTE | 2018-12-17 12:08 | DS ---
DATE OF DISCHARGE: HOSPITAL COURSE: The patient is a 73-year-old female patient, resident at [facility] in [place], who was brought in because of generalized weakness. She was afebrile on arrival to the Emergency Room. At that time, her blood culture was done and subsequently turned positive. Her blood culture was positive for gram-positive cocci in chains, 2/4 bottles, identification and finally, the blood culture has grown methicillin-sensitive Staphylococcus aureus and beta hemolytic streptococci group A and she was seen by the Infectious Disease who recommended treatment with cefazolin 2 grams IV every 8 hours. The patient will have a PICC line placed and she will be discharged to [facility] in [place] to continue treatment for 5 weeks. She will have lab work done weekly and faxed to Dr. Mclean's office and should follow in the Infectious Disease Clinic in 2 weeks' time. PHYSICAL EXAMINATION: GENERAL: When I saw her today, she looked well and was clearly in no apparent respiratory distress. No pallor, jaundice, cyanosis, or thyromegaly. No jugular venous distension. No limb edema. VITAL SIGNS: Her heart rate was 56, blood pressure 132/59, temperature was 97.6, respiratory rate was 20, and oxygen saturation was 97% on 2 liters of oxygen. HEAD, EYES, EARS, NOSE AND THROAT: Showed normocephalic, atraumatic. NECK: Supple. HEART: Showed normal first and second heart sounds. No gallop, rub or murmur. CHEST: Clear to auscultation. No crepitation or rhonchi. ABDOMEN: Distended, soft, nontender. No guarding or rigidity. No organomegaly. All hernial orifice intact. Bowel sounds normal. NEUROLOGICAL: She was awake, alert, responding appropriately. All cranial nerves intact. She moves extremities without difficulty, although she is mostly bedbound, chair bound. LABORATORY WORK: Her most recent lab work showed white cell count 5500, hemoglobin 10, hematocrit 30, MCV 89 and platelet count of 280,000. Her chemistry showed her creatinine is down to 1.1 mg/dL. DISCHARGE MEDICATIONS: She was discharged back to [facility] to continue IV antibiotic in the form of cefazolin 2 grams IV q.8h. for a total of 5 weeks. She should continue also on acetaminophen 1000 mg p.o. q.4-6h., alprazolam 0.5 mg 3 times a day as needed, Pro-Stat liquid 30 mL once a day, amlodipine 10 mg once a day, aspirin 81 mg once a day, baclofen 10 mg 3 times a day, bisacodyl 10 mg daily, gabapentin 200 mg 3 times a day, hydrocodone/APAP 5/325 one to two tablets every 4 hours, morphine sulfate 20 mg per 5 mL solution to take 20 mg every 4 hours as needed, multivitamin with mineral 1 tablet once a day, olanzapine 20 mg daily, pioglitazone 30 mg daily, triamcinolone acetonide cream or ointment applied topically twice a day. FINAL DISCHARGE DIAGNOSES: Methicillin-sensitive Staphylococcus bacteremia and group A Streptococcus bacteremia; bilateral lower extremity cellulitis; acute hypoxic respiratory failure; gehdv-wv-hbaqohz diastolic congestive heart failure; morbid obesity; obstructive sleep apnea; hypertension; hyperlipidemia; acute kidney injury, resolved; type 2 diabetes; chronic lower extremity lymphedema/cellulitis, chronic versus paroxysmal atrial fibrillation, rate controlled, we discontinued his Eliquis; debility and morbid obesity. JOSEPH XIONG MD DR: SINDI/mina JOB#: [id number] / [id number]
[2018-12-17] MEDS ORDERED: LIDOCAINE WITH 8.4% SOD BICARB 3 ML DISP.SYRIN. INJ ONE (12:15)
--- NOTE | 2018-12-17 12:52 | NUR ---
JEISON following pt. [facility] is able to accommodate IV abx. JEISON phoned and faxed orders to [facility]. Pt will transport via [facility] at 1500. JEISON left a voice mail to pt's DPOA about dc plan. Packet on chart. DOMINICK BAILEY.
--- NOTE | 2018-12-20 09:33 | RAD ---
Exam: Fluoroscopic and ultrasound guided right percutaneous inserted central venous catheter placement 12/20/2018 9:29 AM .Indication: iv antibiotics Technique: Informed oral and written consent were obtained. The right upper extremity was prepped and draped using sterile barrier technique. All elements of maximal sterile barrier technique including the use of a cap, mask, sterile gown, sterile gloves, large sterile sheet, appropriate hand hygiene, and 2% chlorhexidine for cutaneous antisepsis (or acceptable alternative antiseptic per current guidelines) were followed for this procedure.. Real-time ultrasound demonstrated a patent right cephalic vein. The right upper extremity was prepped and draped in usual sterile fashion. 1% lidocaine used for local anesthesia. Using real-time ultrasound guidance the access needle percutaneously punctured the selected vein. Reference ultrasound images were saved to the medical record. A guidewire was advanced through the needle to the cavoatrial junction, and a peel-away sheath placed. The catheter was cut to length and inserted through the peel-away sheath such that its tip is at the cavoatrial junction. The wire and sheath were removed, and the catheter secured in place, and a sterile dressing was applied. Catheter was found to flush and aspirate normally. No immediate complications are identified. FLUORO TIME: FLUORO TIME: 1.5 MIN DOSE AREA PRODUCT: 5 Gycm2 Impression: Ultrasound and fluoroscopically guided placement of a right upper extremity PICC line.
== END 2018-12-17 15:30 | disposition home or self-care (01) | DRG 871 ==
LOC: ER 17:08 → 5 NORTH 18:36
PROVIDERS: ADMIT Internal Medicine; ATTEND Internal Medicine
PROC: 02HV33Z Insertion of Infusion Device into Superior Vena Cava, Percutaneous Approach (ICD-10-PCS; principal; 2018-12-17)
PROC: B548ZZA Ultrasonography of Superior Vena Cava, Guidance (ICD-10-PCS; 2018-12-17)
DX: A41.9 Sepsis, unspecified organism (principal); L89.324 Pressure ulcer of left buttock, stage 4; L89.223 Pressure ulcer of left hip, stage 3; J96.01 Acute respiratory failure with hypoxia; I50.33 Acute on chronic diastolic (congestive) heart failure; N17.9 Acute kidney failure, unspecified; L03.115 Cellulitis of right lower limb; L03.116 Cellulitis of left lower limb; Z68.44 Body mass index [BMI] 60.0-69.9, adult; I11.0 Hypertensive heart disease with heart failure; E11.9 Type 2 diabetes mellitus without complications; E66.01 Morbid (severe) obesity due to excess calories; I48.0 Paroxysmal atrial fibrillation; E78.5 Hyperlipidemia, unspecified; G47.33 Obstructive sleep apnea (adult) (pediatric); E78.00 Pure hypercholesterolemia, unspecified; F41.9 Anxiety disorder, unspecified; F32.9 Major depressive disorder, single episode, unspecified; I87.2 Venous insufficiency (chronic) (peripheral); M19.90 Unspecified osteoarthritis, unspecified site; I89.0 Lymphedema, not elsewhere classified; B37.9 Candidiasis, unspecified; B95.0 Streptococcus, group A, as the cause of diseases classified elsewhere; B95.8 Unspecified staphylococcus as the cause of diseases classified elsewhere; K21.9 Gastro-esophageal reflux disease without esophagitis; R29.6 Repeated falls; G89.29 Other chronic pain; Z91.81 History of falling; L89.90 Pressure ulcer of unspecified site, unspecified stage
CPT/HCPCS: 36415; 36569; 36600; 71045; 76937; 77001; 80048; 80053; 80061; 80202; 81001; 82140; 82553; 82565; 82805; 82962; 83036; 83605; 83735; 83880; 84439; 84443; 84484; 85025; 85027; 85610; 87040; 87077; 87205; 87641; 93005; 93306; 96361; 96374; C1751; C1769; C1892; J0692; J1940; J3370; J7030; J7040; 97110; 97530; 97535; 99285-25

== ENCOUNTER 2020-03-04 20:32 | Inpatient (IN) | payer MEDICARE, OTHER ==
[~2020-03-04] VITALS: Ht 162.6 cm; Wt 147.4 kg
[~2020-03-04 20:32] MED LIST changes: -ACET500T55 PO; +ACET500T56 PO; +AMOX1TAB61 PO; -ASCO500T2 PO; +ASCO500T4 PO; +ATOR10TA60 PO; +BACL10TA PO; +BUSP5TAB PO; +CEPH500C PO; +DOCU50CA11 PO; +FURO40TA4 PO; +GABA-585 PO; +INSU100I11 SQ; +LEVO25TA55 PO; +LINE600T12 PO; +LISI1TAB20 PO; -LISI1TAB7 PO; +MENT3.5O TP; +METO25TA4 PO; +NITR100C62 PO; +POLY17PO29 PO; +POTA20TA4 PO; +TORS20TA PO
[2020-03-04 20:59] LABS: BILIRUBIN,URINE NEGATIVE (NEG); CLARITY,URINE CLEAR; COLOR,URINE YELLOW; NITRITE,URINE NEGATIVE (NEG); PROTEIN,URINE NEGATIVE (NEG-TRACE); UROBILINOGEN,URINE 0.2 mg/dL (0.2 mg/dL)
[2020-03-04] MEDS ORDERED: ACETAMINOPHEN 500 MG TABLET PO ONE (21:00)
[2020-03-04 21:07] LABS: SQUAMOUS EPITHELIAL CELL,UR MOD /LPF
[2020-03-04 21:08] LABS: BACTERIA,URINE 0 /HPF (0-FEW); RBC,URINE 0 /HPF (0-2); WBC,URINE OCC /HPF (0-4)
--- NOTE | 2020-03-04 21:23 | PHYS DOC ---
Past Medical History Past Medical History: A-Fib, Bipolar, CHF, COPD, Depression, Diabetes-Type II, High Cholesterol, Pneumonia Additional Past Medical Histor: CH KNEE PAIN,MORBID OBESITY,PVD,POS,SEPS IS,KIDNEY FAIL, Past Surgical History: No Surgical History Additional Past Surgical Histo: UNKNOWN Smoking Status: Never Smoker Alcohol Use: None Drug Use: None General Adult EDM: Chief Complaint: FEVER HPI: HPI: Patient is a 74 year old female presenting to the ED with a chief complaint of a fever. Patient states that she lives in a prison and had a fever this evening. Patient states that usually when she has a fever she becomes septic. Patient states that she was mildly incoherent earlier this evening and so the staff sent her to the ER for further evaluation and treatment. Patient denies cough, shortness of breath, dysuria, chest pain. Patient states that she does not use oxygen in the prison. Currently patient is alert and oriented x3. Review of Systems: Review of Systems: Constitutional: Complains of fever. [] Eyes: Denies change in visual acuity. [] HENT: Denies nasal congestion or sore throat. [] Respiratory: Denies cough or shortness of breath. [] Cardiovascular: Denies chest pain or edema. [] GI: Denies abdominal pain, nausea, vomiting, bloody stools or diarrhea. [] : Denies dysuria. [] Musculoskeletal: Denies back pain or joint pain. [] Integument: Denies rash. [] Neurologic: Complains of disorientation earlier this evening Heart Score: Risk Factors: Risk Factors: DM, Current or recent (<one month) smoker, HTN, HLP, family history of CAD, obesity. Risk Scores: Score 0 - 3: 2.5% MACE over next 6 weeks - Discharge Home Score 4 - 6: 20.3% MACE over next 6 weeks - Admit for Clinical Observation Score 7 - 10: 72.7% MACE over next 6 weeks - Early Invasive Strategies Current Medications: Current Medications Medications (Trade) Dose Ordered Sig/Macey Start Time Stop Time Status Last Admin Dose Admin Acetaminophen (Tylenol) 1,000 mg 1X ONCE 03/04/20 21:00 03/04/20 21:01 DC Sodium Chloride 1,000 ml @ 1,000 mls/hr 1X ONCE 03/04/20 21:15 03/04/20 22:14 UNV Allergies: Allergies: Allergies Coded Allergies Type Severity Reaction Last Updated Verified No Known Medication Allergies Allergy Unknown 10/14/17 Yes Physical Exam: PE: Constitutional: Well developed, well nourished, no acute distress, non-toxic appearance. [] HENT: Normocephalic, atraumatic Eyes: EOMI Neck: Normal range of motion, Supple Cardiovascular: Tachycardia Lungs & Thorax: Bilateral rhonchi [] Abdomen: Bowel sounds normal, soft, no tenderness, obese Extremities: No tenderness, ROM intact, mild bilateral lower extremity edema with venous stasis but no cellulitis Neurologic: Alert and oriented X 3 Current Patient Data: Labs: Laboratory Tests Test 03/04/20 20:48 Urine Collection Type U cath Urine Color Yellow Urine Clarity Clear Urine pH 6.0 (<5.0-8.0) Urine Specific [place] 1.025 (1.000-1.030) Urine Protein Negative mg/dL (NEG-TRACE) Urine Glucose (UA) Negative mg/dL (NEG) Urine Ketones (Stick) Negative mg/dL (NEG) Urine Blood Negative (NEG) Urine Nitrite Negative (NEG) Urine Bilirubin Negative (NEG) Urine Urobilinogen Dipstick 0.2 mg/dL (0.2 mg/dL) Urine Leukocyte Esterase Small (NEG) Urine RBC 0 /HPF (0-2) Urine WBC Occ /HPF (0-4) Urine Squamous Epithelial Cells Mod /LPF Urine Bacteria 0 /HPF (0-FEW) Urine Mucus Mod /LPF EKG: EKG: [EKG interpretation: 20: 42 on 03/04/2020 HR: 120 Atrial fibrillation Irregular intervals Normal axis Nonspecific ST changes ] Radiology/Procedures: Radiology/Procedures: [] Course & Med Decision Making: Course & Med Decision Making Pertinent Labs and Imaging studies reviewed. (See chart for details) [] Dragon Disclaimer: Dragon Disclaimer: This electronic medical record was generated, in whole or in part, using a voice recognition dictation system. Departure Departure Impression: Primary Impression: Fever Additional Impression: Suspected COVID-19 virus infection Disposition: ADMITTED INPATIENT Admitting Physician: Madi. Marcus Condition: GOOD Referrals: JOSEPH XIONG MD (PCP) Justicifation of Admission Dx: Justifications for Admission: Justification of Admission Dx: Yes Sepsis: Infection TRINITY KRAUSE DO Mar 04, 2020 21:23
[2020-03-04] MEDS ORDERED: IV NORMAL SALINE 1000ML BAG 1,000 ML IV ONE (21:30)
--- NOTE | 2020-03-04 21:30 | RAD ---
Exam: Chest one view INDICATION: Pain TECHNIQUE: Frontal view of the chest Comparisons: 11/01/2019 FINDINGS: The cardiomediastinal silhouette and pulmonary vessels are within normal limits. The lung and pleural spaces are clear. IMPRESSION: No acute cardiopulmonary process. Electronically signed by: Tristan Cisneros MD (03/04/2020 9:27 PM) [id number]
[2020-03-04 21:40] LABS: BASO % 0 % (0-3); EOS % 0 % (0-3); HEMATOCRIT 37.6 % (36.0-47.0); HEMOGLOBIN 13.2 g/dL (12.0-15.5); LYMPH # 1.8 x10^3/uL (1.0-4.8); LYMPH % 16 % (24-48); MEAN CORPUSCULAR HEMOGLOBIN 31 pg (25-35); MEAN CORPUSCULAR HGB CONC 35 g/dL (31-37); MEAN CORPUSCULAR VOLUME 89 fL (79-100); MONO # 0.8 x10^3/uL (0.0-1.1); MONO % 7 % (0-9); NEUT # 8.6 x10^3/uL (1.8-7.7); NEUT % 77 % (31-73); PLATELET COUNT 194 x10^3/uL (140-400); RED BLOOD COUNT 4.24 x10^6/uL (3.50-5.40); RED CELL DISTRIBUTION WIDTH 13.2 % (11.5-14.5); WHITE BLOOD COUNT 11.2 x10^3/uL (4.0-11.0)
[2020-03-04 22:08] LABS: INFLUENZA A PATIENT NEGATIVE (NEGATIVE); INFLUENZA B PATIENT NEGATIVE (NEGATIVE)
[2020-03-04 22:09] LABS: GFR 54.5
[2020-03-04 22:14] LABS: ALBUMIN 2.8 g/dL (3.4-5.0); ALBUMIN/GLOBULIN RATIO 0.6 (1.0-1.7); TOTAL BILIRUBIN 0.6 mg/dL (0.2-1.0); TOTAL PROTEIN 7.5 g/dL (6.4-8.2)
[2020-03-04] MEDS ORDERED: cefTRIAXone IV Push 1 GM VIAL. IVP ONE (23:00)
[2020-03-05] VITALS (8 sets, daily range): BP systolic 94–125; BP diastolic 55–76
[2020-03-05] MEDS ORDERED: ACET500T68 PO (01:31)
--- NOTE | 2020-03-05 08:48 | EKG ---
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
[2020-03-05] MEDS ORDERED: NON FORMULARY ITEM (Glucagon,Human Recombinant (Glucagon Emergency Kit) 1 MG) IM PRN (10:15)
[2020-03-05] MEDS ORDERED: BISACODYL 10 MG SUPP.RECT. RC PRN (10:15)
[2020-03-05] MEDS ORDERED: ACETAMINOPHEN 325 MG TABLET. PO PRN (10:15)
--- NOTE | 2020-03-05 10:33 | HP ---
ADMIT DATE: 03/05/2020 HISTORY OF PRESENT ILLNESS: The patient is a 74-year-old female patient, a resident at [facility] in [place], who was noted to be lethargic and incoherent by the nursing staff there. She was also found to have fever up to 102 degrees Fahrenheit; and therefore, she was sent to the Emergency Room of [facility] for further evaluation and treatment. Apparently, by the time she arrived to the Emergency Room, she was alert and oriented x 3. Her investigation showed that her white cell count was only 11,200. The patient has mild lactic acidosis. Her chest x-ray showed cardiomediastinal silhouette and pulmonary vessels are within normal limits. Lungs and pleural spaces are clear and she has had blood and urine sent for culture and sensitivity. She was also tested for COVID-19. Her influenza A and B were negative. Has been given Rocephin 1 gram IV once and was admitted for further evaluation and treatment. The patient herself denied any nausea, vomiting, diarrhea, or constipation. Denied any hematemesis, melena, or hematochezia. Denied any dysuria, frequency, or hematuria. Denied any chest pain, shortness of breath, orthopnea, or paroxysmal nocturnal dyspnea. Denied any cough, phlegm, or hemoptysis. Denied any chills. Did complain of fever. PAST MEDICAL HISTORY: Is significant for anxiety and depression, type 2 diabetes mellitus, hypertension, hyperlipidemia, morbid obesity and probably obstructive sleep apnea, severe osteoarthritis of both knee joints, multiple wounds, and recurrent bilateral lower extremity cellulitis. She also has a history of methicillin-sensitive Staphylococcus aureus bacteremia and group A streptococcus bacteremia. She is also known to have chronic diastolic congestive heart failure, paroxysmal atrial fibrillation, for which she was on metoprolol and Coumadin and both were discontinued. PAST SURGICAL HISTORY: Unremarkable. FAMILY HISTORY: Noncontributory. SOCIAL HISTORY: She is a resident at [facility] in [place]. She has a son and a daughter. She does not smoke, drink alcohol, or use any recreational drugs. ALLERGIES: She has no known drug allergies. MEDICATIONS: She is currently on following medications: She is on baclofen 10 mg 3 times a day, amlodipine 10 mg once a day, aspirin 81 mg once a day, hydrocodone/APAP 5/325 one to two tablets every 4 hours, Tylenol 650 mg every 4 hours, gabapentin 300 mg 3 times a day, olanzapine 20 mg p.o. daily. She is on alprazolam 0.5 mg 3 times a day, potassium chloride 20 mEq once a day, furosemide 40 mg once a day, bisacodyl 10 mg suppository rectally daily p.r.n. for constipation, Colace 50 mg twice a day, polyethylene glycol 17 grams daily and she is on glucagon 1 mg intramuscular as needed for hypoglycemia, levothyroxine 25 mcg once a day, nystatin powder twice a day. REVIEW OF SYSTEMS: As per history of present illness. PHYSICAL EXAMINATION: GENERAL: On arrival to the Emergency Room, apparently, the patient was tachycardic, was pale. No jaundice, cyanosis, or thyromegaly. No jugular venous distention. No lower limb edema. VITAL SIGNS: Her heart rate on arrival was 128, blood pressure was 118/77, temperature was 102.8, respiratory rate 20, and oxygen saturation was 97% on 2 liters of oxygen. HEAD, EYES, EARS, NOSE AND THROAT: Showed normocephalic, atraumatic. NECK: Supple. HEART: Showed normal first and second heart sounds with no gallop, rub, or murmur. CHEST: Shows central trachea, equal bilateral expansion, air entry, vesicular sounds. No crepitation or rhonchi. ABDOMEN: Markedly distended, soft, nontender. NEUROLOGIC: She was actually awake, alert, responding appropriately. All cranial nerves intact. She moves upper extremities to much good extent than lower extremities. She is mostly bedbound. LABORATORY DATA: Her lab work on arrival to the Emergency Room showed a white cell count of 11,200; hemoglobin 13; hematocrit 37; MCV 89 and platelet count of 194,000 with normal manual differential. Her chemistry showed a serum sodium 136, potassium 4, chloride 100, bicarbonate 29, anion gap of 7, BUN 21, creatinine 1, estimated GFR was 54 mL per minute. Her glucose was 159, calcium was 9. Total bilirubin, AST, ALT, alkaline phosphatase were normal. Total protein 7.5, albumin was 2.8. Urinalysis was essentially unremarkable. The urine was negative for nitrite, small amount of leukocyte esterase, no rbc's, occasional wbc's, and no bacteria. Her influenza A and B were negative. Her chest x-ray showed that the cardiomediastinal silhouette and pulmonary vessels are within normal limits. The lungs and pleural spaces are clear. ASSESSMENT AND PLAN: The patient was admitted with altered mental status and fever, the cause of which is not very clear. Her urine and blood were sent for culture and sensitivity. Her influenza A and B were negative. COVID was sent also. She was given 1 gram of Rocephin. My plan is to expand her coverage and consult the Infectious Disease to assist with management. She had had history before of methicillin-sensitive Staphylococcal bacteremia as well as group A Streptococcus bacteremia. JOSEPH XIONG MD DR: SINDI/mina JOB#: [id number] / [id number]
[2020-03-05] MEDS: ALPRAZolam 0.5 MG TABLET PO PRN ×2 (10:42→21:08)
--- NOTE | 2020-03-05 11:01 | PN ---
DATE: 03/05/2020 SUBJECTIVE: The patient is resting, slightly propped up in bed, in no apparent respiratory distress. She is extremely anxious, worried that she might fall from the bed. She claimed that her Xanax was discontinued, although it still on the [facility]. PHYSICAL EXAMINATION: GENERAL: When I saw her this morning, she looked well and was clearly in no apparent respiratory distress. VITAL SIGNS: Her heart rate was 81, blood pressure was 125/74, temperature was 98.9, respiratory rate was 24 and oxygen saturation was 98% on 2 liters of oxygen. HEAD, EYES, EARS, NOSE AND THROAT: Showed normocephalic, atraumatic. NECK: Supple. HEART: Normal first and second heart sounds. No gallop, rub, or murmur. CHEST: Shows central trachea, equal bilateral expansion, air entry, vesicular sounds. No crepitation or rhonchi. ABDOMEN: Distended, soft, nontender. NEUROLOGIC: She is awake, alert, responding appropriately. All cranial nerves intact. She moves upper extremities without difficulty. EXTREMITIES: Examination of both lower extremities showed that there is no redness, swelling, or tenderness. She normally most time gets admitted because of cellulitis, but surprisingly, her legs looks very well with no evidence of any redness. Her intake and output are incompletely recorded. LABORATORY DATA: No lab works available this morning. PLAN: To broaden the spectrum of her antibiotics and consult the Infectious Disease specialist. JOSEPH XIONG MD DR: SINDI/mina JOB#: [id number] / [id number]
--- NOTE | 2020-03-05 11:31 | PDOC ---
Infectious Disease Note Vital Signs: Vital Signs Vital Signs Date Time Temp Pulse Resp B/P (MAP) Pulse Ox O2 Delivery O2 Flow Rate FiO2 03/05/20 08:00 Nasal Cannula 2.0 03/05/20 07:00 98.9 81 24 125/76 (92) 98 98.9 Medications: Inpatient Meds: Current Medications Medications (Trade) Dose Ordered Sig/Macey Start Time Stop Time Status Last Admin Dose Admin Acetaminophen (Tylenol) 650 mg PRN Q4HRS PRN 03/05/20 10:15 Acetaminophen/ Hydrocodone Bitart (Lortab 5/325) 1 tab PRN Q4HRS PRN 03/05/20 10:15 Alprazolam (Xanax) 0.5 mg PRN TID PRN 03/05/20 10:15 03/05/20 10:42 0.5 MG Amlodipine Besylate (Norvasc) 10 mg DAILY 03/06/20 09:00 Aspirin (Aspirin Chewable) 81 mg DAILY 03/06/20 09:00 Baclofen (Lioresal) 10 mg TID 03/05/20 14:00 Bisacodyl (Dulcolax Supp) 10 mg PRN DAILY PRN 03/05/20 10:15 Ceftriaxone Sodium (Rocephin) 1 gm 1X ONCE 03/04/20 23:00 03/04/20 23:01 DC 03/04/20 22:50 1 GM Docusate Sodium (Colace) 100 mg BID 03/05/20 21:00 Furosemide (Lasix) 40 mg DAILY 03/06/20 09:00 Gabapentin (Neurontin) 300 mg TID 03/05/20 14:00 Levothyroxine Sodium (Synthroid) 25 mcg DAILY06 03/06/20 06:00 Linezolid/Dextrose 300 ml @ 300 mls/hr Q12HR 03/05/20 11:00 03/05/20 10:42 300 MLS/HR Multivitamins (Thera M Plus) 1 tab DAILY 03/06/20 09:00 Non-Formulary Medication (Glucagon,Human Recombinant (Glucagon Emergency Kit)) 1 mg PRN Q15MIN PRN 03/05/20 10:15 UNV Nystatin (Nystop) 15 campos BID 03/05/20 21:00 Olanzapine (ZyPREXA) 20 mg QHS 03/05/20 21:00 Piperacillin Sod/ Tazobactam Sod 3.375 gm/Sodium Chloride 50 ml @ 100 mls/hr Q6HRS 03/05/20 12:00 Polyethylene Glycol (miraLAX PACKET) 17 gm DAILY 03/06/20 09:00 Potassium Chloride (Klor-Con) 20 meq [id number] 03/06/20 08:00 Sodium Chloride 1,000 ml @ 1,000 mls/hr 1X ONCE 03/04/20 21:30 03/04/20 22:29 DC 03/04/20 21:18 1,000 MLS/HR Labs: Lab Laboratory Tests Test 03/04/20 20:48 03/04/20 21:25 03/04/20 21:33 03/05/20 01:50 Urine Collection Type U cath Urine Color Yellow Urine Clarity Clear Urine pH 6.0 (<5.0-8.0) Urine Specific [place] 1.025 (1.000-1.030) Urine Protein Negative mg/dL (NEG-TRACE) Urine Glucose (UA) Negative mg/dL (NEG) Urine Ketones (Stick) Negative mg/dL (NEG) Urine Blood Negative (NEG) Urine Nitrite Negative (NEG) Urine Bilirubin Negative (NEG) Urine Urobilinogen Dipstick 0.2 mg/dL (0.2 mg/dL) Urine Leukocyte Esterase Small (NEG) Urine RBC 0 /HPF (0-2) Urine WBC Occ /HPF (0-4) Urine Squamous Epithelial Cells Mod /LPF Urine Bacteria 0 /HPF (0-FEW) Urine Mucus Mod /LPF White Blood Count 11.2 x10^3/uL (4.0-11.0) Red Blood Count 4.24 x10^6/uL (3.50-5.40) Hemoglobin 13.2 g/dL (12.0-15.5) Hematocrit 37.6 % (36.0-47.0) Mean Corpuscular Volume 89 fL (79-100) Mean Corpuscular Hemoglobin 31 pg (25-35) Mean Corpuscular Hemoglobin Concent 35 g/dL (31-37) Red Cell Distribution Width 13.2 % (11.5-14.5) Platelet Count 194 x10^3/uL (140-400) Neutrophils (%) (Auto) 77 % (31-73) Lymphocytes (%) (Auto) 16 % (24-48) Monocytes (%) (Auto) 7 % (0-9) Eosinophils (%) (Auto) 0 % (0-3) Basophils (%) (Auto) 0 % (0-3) Neutrophils # (Auto) 8.6 x10^3/uL (1.8-7.7) Lymphocytes # (Auto) 1.8 x10^3/uL (1.0-4.8) Monocytes # (Auto) 0.8 x10^3/uL (0.0-1.1) Eosinophils # (Auto) 0.0 x10^3/uL (0.0-0.7) Basophils # (Auto) 0.0 x10^3/uL (0.0-0.2) Sodium Level 136 mmol/L (136-145) Potassium Level 4.0 mmol/L (3.5-5.1) Chloride Level 100 mmol/L (98-107) Carbon Dioxide Level 29 mmol/L (21-32) Anion Gap 7 (6-14) Blood Urea Nitrogen 21 mg/dL (7-20) Creatinine 1.0 mg/dL (0.6-1.0) Estimated GFR (Cockcroft-Gault) 54.5 BUN/Creatinine Ratio 21 (6-20) Glucose Level 159 mg/dL (70-99) Lactic Acid Level 2.1 mmol/L (0.4-2.0) 1.5 mmol/L (0.4-2.0) Calcium Level 9.0 mg/dL (8.5-10.1) Total Bilirubin 0.6 mg/dL (0.2-1.0) Aspartate Amino Transf (AST/SGOT) 24 U/L (15-37) Alanine Aminotransferase (ALT/SGPT) 16 U/L (14-59) Alkaline Phosphatase 96 U/L (46-116) Troponin I Quantitative < 0.017 ng/mL (0.000-0.055) FL-Sfw-Q-Type Natriuretic Peptide 802 pg/mL (0-124) Total Protein 7.5 g/dL (6.4-8.2) Albumin 2.8 g/dL (3.4-5.0) Albumin/Globulin Ratio 0.6 (1.0-1.7) Influenza Type A Antigen Negative (NEGATIVE) Influenza Type B Antigen Negative (NEGATIVE) Test 03/05/20 08:09 Glucose (Fingerstick) 99 mg/dL (70-99) Objective: Assessment: Patient seen and examined ID consult dictated Plan: Plan of Care Thank you [id number] BRANDON BARNARD MD Mar 05, 2020 11:31
[2020-03-05] MEDS: PIPERACILLIN/TAZOBACTAM 3.375 GM in IV NORMAL SALINE 50ML 50 ML IV SCH ×3 (12:45→23:32)
[2020-03-05] MEDS: BACLOFEN 10 MG TABLET. PO SCH ×2 (13:54→21:07)
[2020-03-05] MEDS: GABAPENTIN 100 MG CAPSULE. PO SCH ×2 (13:54→21:08)
[2020-03-05] MEDS ORDERED: PIPERACILLIN/TAZOBACTAM 3.375 GM in IV NORMAL SALINE 50ML 50 ML IV SCH (14:00)
--- NOTE | 2020-03-05 14:03 | CONS ---
DATE OF CONSULTATION: 03/05/2020 REFERRING PHYSICIAN: Dr. Andino. REASON FOR CONSULTATION: Fever. HISTORY OF PRESENT ILLNESS: A 74-year-old female brought to the ER on 03/04/2020 from [facility] with complaints of fever. The patient also was found to be lethargic with incoherence when she was brought to the ER, she was alert and oriented x 3, fever of 102.8. White count of 11.1. UA was negative. COVID was sent. The patient was admitted to the floor for further evaluation and treatment. She received a dose of Rocephin. This morning since her fever was 102, she was started on Zyvox and Zosyn. ID consult has been requested as there was no clear source of fever. The patient denies any sick contact. Denies any nausea, vomiting, diarrhea, abdominal pain. Denies any chest pain, headache, sore throat, difficulty swallowing. Does have arthritis in both the knees, which is chronic. Does not ambulate. She has been treated for cellulitis of the left lower extremity in the past. She also has bilateral chronic venous stasis with lymphedema. She has history of group B strep sepsis with history of Staphylococcus aureus sepsis in the past. The patient denies any recent procedure. PAST MEDICAL HISTORY: AFib, bipolar, CHF, COPD, morbid obesity, depression, diabetes, chronic knee pain, PVD, history of group B strep, history of Staph aureus bacteremia. PAST SURGICAL HISTORY: As per HPI. FAMILY HISTORY: As per HPI. SOCIAL HISTORY: intermediate resident, bedbound. No smoking, alcohol or illicit drug use. CURRENT MEDICATION: One-time dose of ceftriaxone, now on Zosyn and Zyvox. Other medications reviewed in medication list. REVIEW OF SYSTEMS: Negative except for above in HPI. PHYSICAL EXAMINATION: VITAL SIGNS: T-max 102.8, current temperature is 98.9, pulse 81, respiration 24, blood pressure 125/76, oxygen saturation 98% on 2 liters. GENERAL: Alert, oriented x 3 female, lying in bed comfortably, in no acute distress. HEENT: Normocephalic, atraumatic, anicteric. No thrush. NECK: Supple, right neck swelling, redness ,2-3 cm mass, firm, tender. No JVD. LUNGS: Clear bilaterally. No wheezing. HEART: S1, S2. ABDOMEN: Soft, nontender, nondistended, obese. Bowel sounds present. EXTREMITIES: Chronic venous stasis, chronic lymphedema. No redness. MUSCULOSKELETAL: No joint effusion. Changes suggestive of DJD. NEUROLOGIC: Alert and oriented x 3, grossly nonfocal. PSYCHIATRIC: Cooperative, appropriate mood. DERMATOLOGIC: Warm, dry. No generalized rash except for above. LABORATORY DATA: WBC 11.2, hemoglobin 13.2, hematocrit 37.6, platelets 194. Lactate 2.1, repeat is 1.5. Sodium 136, potassium 4.10, chloride 100, bicarbonate 29, BUN 21, creatinine 1.0, glucose 159, calcium 9.0. LFTs within normal limits. COVID-19 pending, influenza screen negative IMAGING: Chest x-ray shows no acute cardiopulmonary infiltrates. MICROBIOLOGY: COVID-19 pending. Urine culture pending. IMPRESSION: 1. Fever. 2. Right neck cellulitis, possible abscess. 3. History of group B strep. 4. Atrial fibrillation. 5. Bipolar disorder with depression. 6. History of congestive heart failure. 7. Degenerative joint disease. 8. Diabetes. 9. Chronic knee pain. 10. Morbid obesity. 11. Peripheral vascular disease. 12. Mild leukocytosis and lactic acidosis. 13. Influenza A and B negative. RECOMMENDATIONS: 1. Continue Zyvox and Zosyn. 2. Obtain blood cultures. 3. Obtain CT neck soft tissue without contrast to rule out abscess. 4. Monitor labs and cultures. 5. Maintain aspiration precaution. 6. Follow up COVID-19. 7. Continue supportive care. 8. Discussed with nursing. Thank you, Dr. Andino for consulting Infectious Disease to participate in this patient's care. If you have any questions, do not hesitate to contact me. BRANDON BARNARD MD DR: MAYNOR/mina JOB#: [id number] / [id number] KELLIE
--- NOTE | 2020-03-05 14:54 | NUR ---
Patient is maximum assist although could help turn to side. It took 2 nurses and 1 aide to reposition and change her in bed. The patient was anxious, she was redirected and prn alprazolam given. She states fearing that she will fall out of bed when staff would turn or reposition her.
[2020-03-05] MEDS: OLANZapine 5 MG TABLET PO SCH (21:07)
[2020-03-05] MEDS: DOCUSATE SODIUM 100 MG CAPSULE. PO SCH (21:08)
[2020-03-05] MEDS: LACTOBACILLUS RHAMNOSUS GG 1 CAPSULE. PO SCH (21:08)
[2020-03-05] MEDS: NYSTATIN TOPICAL POWDER 15GM BOTTLE. TP SCH (21:12)
--- NOTE | 2020-03-05 23:11 | NUR ---
Pt with complaints of being repositioned. Pt states it is uncomfortable when she turns on her sides. Pt instructed on repositioning for pressure relief and needing to turn to help prevent bed sores. Pt states she lies down all the time and does not have sores. Pt instructed when turn her at her request less frequent during the noc however she will need to be turned to take pressure off. Pt verbalized understanding. Will continue current plan of care.
[2020-03-06 04:00] VITALS: BP 126/58
[2020-03-06 04:41] LABS: HEMATOCRIT 35.1 % (36.0-47.0); HEMOGLOBIN 11.9 g/dL (12.0-15.5); RED BLOOD COUNT 3.88 x10^6/uL (3.50-5.40); RED CELL DISTRIBUTION WIDTH 13.6 % (11.5-14.5); WHITE BLOOD COUNT 8.8 x10^3/uL (4.0-11.0)
[2020-03-06] MEDS: PIPERACILLIN/TAZOBACTAM 3.375 GM in IV NORMAL SALINE 50ML 50 ML IV SCH ×4 (04:50→21:30)
[2020-03-06] MEDS: LEVOTHYROXINE 25 MCG TABLET. PO SCH (04:50)
[2020-03-06 05:11] LABS: ALBUMIN 2.4 g/dL (3.4-5.0); ALBUMIN/GLOBULIN RATIO 0.5 (1.0-1.7); CALCIUM 9.1 mg/dL (8.5-10.1); CREATININE 0.9 mg/dL (0.6-1.0); GFR 61.5; POTASSIUM 3.7 mmol/L (3.5-5.1); TOTAL BILIRUBIN 0.5 mg/dL (0.2-1.0); TOTAL PROTEIN 6.9 g/dL (6.4-8.2)
[2020-03-06 07:00] VITALS: BP 107/69
[2020-03-06] MEDS: POTASSIUM CHLORIDE 20 MEQ TABLET.ER. PO SCH (08:20)
[2020-03-06] MEDS: MULTIVITAMIN with MINERAL TABLET. PO SCH (08:20)
[2020-03-06] MEDS: GABAPENTIN 100 MG CAPSULE. PO SCH ×3 (08:20→21:31)
[2020-03-06] MEDS: DOCUSATE SODIUM 100 MG CAPSULE. PO SCH ×2 (08:20→21:31)
[2020-03-06] MEDS: ASPIRIN CHEWABLE 81 MG TABLET. PO SCH (08:20)
[2020-03-06] MEDS: LACTOBACILLUS RHAMNOSUS GG 1 CAPSULE. PO SCH ×2 (08:20→21:31)
[2020-03-06] MEDS: BACLOFEN 10 MG TABLET. PO SCH ×3 (08:20→21:31)
[2020-03-06] MEDS: FUROSEMIDE 40 MG TABLET. PO SCH (08:21)
[2020-03-06] MEDS: amLODIPine BESYLATE 10 MG TABLET PO SCH (08:22)
[2020-03-06] MEDS: NYSTATIN TOPICAL POWDER 15GM BOTTLE. TP SCH ×2 (08:23→21:34)
[2020-03-06] MEDS: POLYETHYLENE GLYCOL 3350 17 GM PACKET. PO SCH (08:25)
--- NOTE | 2020-03-06 09:28 | PDOC ---
Infectious Disease Note Subjective: Subjective Patient feels a little better today Right neck pain and swelling persists but improving Denies fever, nausea, vomiting, shortness of breath, diarrhea, abdominal pain, rash Otherwise as above Vital Signs: Vital Signs Vital Signs Date Time Temp Pulse Resp B/P (MAP) Pulse Ox O2 Delivery O2 Flow Rate FiO2 03/06/20 08:22 57 107/69 03/06/20 07:00 96.0 17 92 Nasal Cannula 2.0 96.0 Physical Exam: PHYSICAL EXAM GENERAL: Alert, oriented x 3 female, lying in bed comfortably, in no acute distress. HEENT: Normocephalic, atraumatic, anicteric. No thrush. NECK: Supple, Right neck area swollen, redness, warmth mass about 2- 3 cm in size firm, tender. No JVD. LUNGS: Clear bilaterally. No wheezing. HEART: S1, S2. ABDOMEN: Soft, nontender, nondistended, obese. Bowel sounds present. EXTREMITIES: Chronic venous stasis, chronic lymphedema. No redness. MUSCULOSKELETAL: No joint effusion. Changes suggestive of DJD. NEUROLOGIC: Alert and oriented x 3, grossly nonfocal. PSYCHIATRIC: Cooperative, appropriate mood. DERMATOLOGIC: Warm, dry. No generalized rash except for above. Medications: Inpatient Meds: Current Medications Medications (Trade) Dose Ordered Sig/Macey Start Time Stop Time Status Last Admin Dose Admin Acetaminophen (Tylenol) 650 mg PRN Q4HRS PRN 03/05/20 10:15 Acetaminophen/ Hydrocodone Bitart (Lortab 5/325) 1 tab PRN Q4HRS PRN 03/05/20 10:15 Alprazolam (Xanax) 0.5 mg PRN TID PRN 03/05/20 10:15 03/05/20 21:08 0.5 MG Amlodipine Besylate (Norvasc) 10 mg DAILY 03/06/20 09:00 03/06/20 08:22 10 MG Aspirin (Aspirin Chewable) 81 mg DAILY 03/06/20 09:00 03/06/20 08:20 81 MG Baclofen (Lioresal) 10 mg TID 03/05/20 14:00 03/06/20 08:20 10 MG Bisacodyl (Dulcolax Supp) 10 mg PRN DAILY PRN 03/05/20 10:15 Ceftriaxone Sodium (Rocephin) 1 gm 1X ONCE 03/04/20 23:00 03/04/20 23:01 DC 03/04/20 22:50 1 GM Docusate Sodium (Colace) 100 mg BID 03/05/20 21:00 03/06/20 08:20 100 MG Furosemide (Lasix) 40 mg DAILY 03/06/20 09:00 03/06/20 08:21 40 MG Gabapentin (Neurontin) 300 mg TID 03/05/20 14:00 03/06/20 08:20 300 MG Lactobacillus Rhamnosus (Culturelle) 1 cap BID 03/05/20 21:00 03/06/20 08:20 1 CAP Levothyroxine Sodium (Synthroid) 25 mcg DAILY06 03/06/20 06:00 03/06/20 04:50 25 MCG Linezolid/Dextrose 300 ml @ 300 mls/hr Q12HR 03/05/20 11:00 03/06/20 08:23 300 MLS/HR Multivitamins (Thera M Plus) 1 tab DAILY 03/06/20 09:00 03/06/20 08:20 1 TAB Non-Formulary Medication (Glucagon,Human Recombinant (Glucagon Emergency Kit)) 1 mg PRN Q15MIN PRN 03/05/20 10:15 UNV Nystatin (Nystop) 15 campos BID 03/05/20 21:00 03/06/20 08:23 15 CAMPOS Olanzapine (ZyPREXA) 20 mg QHS 03/05/20 21:00 03/05/20 21:07 20 MG Piperacillin Sod/ Tazobactam Sod 3.375 gm/Sodium Chloride 50 ml @ 100 mls/hr Q6HRS 03/05/20 12:00 03/06/20 04:50 100 MLS/HR Polyethylene Glycol (miraLAX PACKET) 17 gm DAILY 03/06/20 09:00 03/06/20 08:25 17 GM Potassium Chloride (Klor-Con) 20 meq [id number] 03/06/20 08:00 03/06/20 08:20 20 MEQ Sodium Chloride 1,000 ml @ 1,000 mls/hr 1X ONCE 03/04/20 21:30 03/04/20 22:29 DC 03/04/20 21:18 1,000 MLS/HR Labs: Lab Laboratory Tests Test 03/05/20 11:49 03/05/20 16:49 03/05/20 21:38 03/06/20 03:55 Glucose (Fingerstick) 151 mg/dL (70-99) 111 mg/dL (70-99) 123 mg/dL (70-99) White Blood Count 8.8 x10^3/uL (4.0-11.0) Red Blood Count 3.88 x10^6/uL (3.50-5.40) Hemoglobin 11.9 g/dL (12.0-15.5) Hematocrit 35.1 % (36.0-47.0) Mean Corpuscular Volume 90 fL (79-100) Mean Corpuscular Hemoglobin 31 pg (25-35) Mean Corpuscular Hemoglobin Concent 34 g/dL (31-37) Red Cell Distribution Width 13.6 % (11.5-14.5) Platelet Count 161 x10^3/uL (140-400) Sodium Level 138 mmol/L (136-145) Potassium Level 3.7 mmol/L (3.5-5.1) Chloride Level 103 mmol/L (98-107) Carbon Dioxide Level 29 mmol/L (21-32) Anion Gap 6 (6-14) Blood Urea Nitrogen 21 mg/dL (7-20) Creatinine 0.9 mg/dL (0.6-1.0) Estimated GFR (Cockcroft-Gault) 61.5 BUN/Creatinine Ratio 23 (6-20) Glucose Level 107 mg/dL (70-99) Calcium Level 9.1 mg/dL (8.5-10.1) Total Bilirubin 0.5 mg/dL (0.2-1.0) Aspartate Amino Transf (AST/SGOT) 20 U/L (15-37) Alanine Aminotransferase (ALT/SGPT) 13 U/L (14-59) Alkaline Phosphatase 77 U/L (46-116) Total Protein 6.9 g/dL (6.4-8.2) Albumin 2.4 g/dL (3.4-5.0) Albumin/Globulin Ratio 0.5 (1.0-1.7) Thyroid Stimulating Hormone (TSH) 1.007 uIU/mL (0.358-3.74) Test 03/06/20 08:06 Glucose (Fingerstick) 110 mg/dL (70-99) Objective: Assessment: 1. Fever. 2. Right neck cellulitis, early abscess. 3. History of group B strep. 4. Atrial fibrillation. 5. Bipolar disorder with depression. 6. History of congestive heart failure. 7. Degenerative joint disease. 8. Diabetes. 9. Chronic knee pain. 10. Morbid obesity. 11. Peripheral vascular disease. 12. Mild leukocytosis and lactic acidosis. 13. Influenza A and B negative. Plan: Plan of Care 1. Continue Zyvox and Zosyn. 2. f/u blood cultures. 3. f/u CT neck soft tissue without contrast to rule out abscess. 4. Monitor labs and cultures. 5. Maintain aspiration precaution. 6. COVID-19 negative 7. Continue supportive care. Discussed with nursing. BRANDON BARNARD MD Mar 06, 2020 09:28
[2020-03-06 11:00] VITALS: BP 118/61
--- NOTE | 2020-03-06 12:31 | PN ---
DATE: 03/06/2020 SUBJECTIVE: The patient is resting, slightly propped up in bed, in no apparent respiratory distress. She is awake, alert and denied any complaint; however, it transpired that she has redness and inflammation of the right ear and also the right side of the neck with possible abscess for which a CT scan of the soft tissue of the neck was ordered, but was not done yet. PHYSICAL EXAMINATION: GENERAL: When I saw her today, she looked pale, but no jaundice, cyanosis or thyromegaly. No jugular venous distention. No limb edema. VITAL SIGNS: Her heart rate was 57, blood pressure was 107/69, temperature was 96, respiratory rate was 17 and oxygen saturation was 92% on 2 liters of oxygen. HEAD, EYES, EARS, NOSE AND THROAT: Showed normocephalic, atraumatic. There is inflammation of the right ear and also erythema extends to the right side of the neck with possible abscess. HEART: Showed normal first and second heart sounds. No gallop or murmur. CHEST: Clear to auscultation. No crepitation or rhonchi. ABDOMEN: Distended, soft, nontender. NEUROLOGIC: She is definitely more awake, alert, responding appropriately. All her cranial nerves intact. She moves upper extremities without difficulty. She is mostly bedbound, chair bound. LABORATORY DATA: Showed that this morning showed a white cell count of 8800, hemoglobin 12, hematocrit 35, MCV 90 and platelet count of 161,000. Her serum sodium was 138, potassium 3.7, chloride 103, bicarbonate 29, anion gap of 6, BUN 21, creatinine 0.9, estimated GFR was 61 mL per minute. Her glucose was 107, calcium was 9.1. Total bilirubin, AST, ALT, alkaline phosphatase were normal. Total protein 6.9, albumin 2.4. Her TSH is normal at 1.007. Urinalysis is unremarkable. ASSESSMENT: 1. Fever, likely due to cellulitis of the right ear and right neck with possible early abscess. 2. The patient has a history of group B streptococcal infection as well as Staphylococcus aureus bacteremia. 3. Atrial fibrillation. 4. Chronic diastolic congestive heart failure; type 2 diabetes mellitus, osteoarthritis, both knee joints, morbid obesity. PLAN: To continue with Zyvox and Zosyn and adjust according to the result of the culture and sensitivity. She did order for CT scan of the soft tissue of the neck, the results of which is still pending at the time of this dictation. JOSEPH XIONG MD DR: SINDI/mina JOB#: [id number] / [id number]
--- NOTE | 2020-03-06 13:49 | NUR ---
Wound/Ostomy Care Wound Type/Assessment: Wound care consult for L hip surgical dehiscence and L abd abdomen skin intertrigo Treatment Recommendations/Plan: Both wounds cleansed with saline, L hip wound dressed with xeroform and foam. L abdomen nystatin applied. Education provided: patient and LEO Blood Offloading surface/device: Pt educated on turning and elevating legs to avoid pressure points, pt refused to have legs elevated. Pt is on P500 bed. Recommended Referrals/Tests: n/a Discharge Recommendations for dressings: Left hip xeroform and foam, change every 2-3 days and nystatin powder to left abdomen intertrigo bid
--- NOTE | 2020-03-06 14:04 | RAD ---
Examination: CT SOFT TISSUE NECK WO CONTRST History: Reason: right neck cellulitis, ? mass r/o abscess / Spl. Instructions: / History: Comparison/Correlation: None Findings: Axial images of the neck were obtained without contrast. Sagittal and coronal reformatted images were provided. He was performed from the mid orbital level to the aortic arch level. Mastoid air cells are unremarkable. Fatty replacement of the parotid glands is noted. Fatty replacement of some minimal glands is noted. Pharynx is symmetric and unremarkable. There is stranding noted involving the right external ear diffusely and about the right external auditory canal. Subgaleal fluid at the right lower temporal and mastoid air cell level is identified to measure 0.35 cm transverse by 6.7 cm anteroposterior. Mastoid air cells are clear. True and false cords are symmetric. There is a right thyroid lobe nodule measuring up to 1.4 cm x 0.95 cm. Minimal nodularity of the left thyroid gland may be present and much smaller.. No enlarged lymph nodes. Lung apices are unremarkable. Significant disc space narrowing at C5-6 is noted. Bony encroachment on the left neural foramen is mild. Impression: Subtle stranding and edematous appearance of the right external ear including the right external auditory canal. Subgaleal fluid is noted at the right lower temporal and mastoid level. No other loculated collection. Correlate for underlying cellulitis or other inflammatory process. Right thyroid lobe nodule. Recommend further evaluation with ultrasound exam for more definitive assessment on a nonemergent basis if stability is unknown. PQRS Compliance Statement: One or more of the following individualized dose reduction techniques were utilized for this examination: 1. Automated exposure control 2. Adjustment of the mA and/or kV according to patient size 3. Use of iterative reconstruction technique Electronically signed by: Suraj Torres MD (03/06/2020 2:01 PM) [id number]
[2020-03-06 15:00] VITALS: BP 107/56
[2020-03-06 19:00] VITALS: BP 130/77
[2020-03-06] MEDS: OLANZapine 5 MG TABLET PO SCH (21:31)
[2020-03-06 23:00] VITALS: BP 110/55
[2020-03-07 03:00] VITALS: BP 121/55
[2020-03-07] MEDS: PIPERACILLIN/TAZOBACTAM 3.375 GM in IV NORMAL SALINE 50ML 50 ML IV SCH ×6 (06:00→23:42)
[2020-03-07 07:00] VITALS: BP 120/54
[2020-03-07] MEDS: LEVOTHYROXINE 25 MCG TABLET. PO SCH (07:18)
[2020-03-07] MEDS ORDERED: LIDOCAINE WITH 8.4% SOD BICARB 3 ML DISP.SYRIN. ONE (08:22)
[2020-03-07] MEDS: POTASSIUM CHLORIDE 20 MEQ TABLET.ER. PO SCH (08:22)
[2020-03-07] MEDS: POLYETHYLENE GLYCOL 3350 17 GM PACKET. PO SCH (08:22)
[2020-03-07] MEDS: ASCORBIC ACID 500 MG TABLET PO SCH (08:22)
[2020-03-07] MEDS: amLODIPine BESYLATE 10 MG TABLET PO SCH (08:23)
[2020-03-07] MEDS: MULTIVITAMIN with MINERAL TABLET. PO SCH (08:23)
[2020-03-07] MEDS: LACTOBACILLUS RHAMNOSUS GG 1 CAPSULE. PO SCH ×2 (08:23→20:59)
[2020-03-07] MEDS: ALPRAZolam 0.5 MG TABLET PO PRN (08:23)
[2020-03-07] MEDS: GABAPENTIN 100 MG CAPSULE. PO SCH ×3 (08:23→21:11)
[2020-03-07] MEDS: ASPIRIN CHEWABLE 81 MG TABLET. PO SCH (08:23)
[2020-03-07] MEDS: DOCUSATE SODIUM 100 MG CAPSULE. PO SCH ×2 (08:23→20:59)
[2020-03-07] MEDS: BACLOFEN 10 MG TABLET. PO SCH ×3 (08:24→20:59)
[2020-03-07] MEDS: FUROSEMIDE 40 MG TABLET. PO SCH (08:24)
[2020-03-07] MEDS ORDERED: LIDOCAINE WITH 8.4% SOD BICARB 3 ML DISP.SYRIN. INJ ONE (08:30)
[2020-03-07] MEDS: NYSTATIN TOPICAL POWDER 15GM BOTTLE. TP SCH ×2 (09:00→20:59)
[2020-03-07 11:00] VITALS: BP 104/64
--- NOTE | 2020-03-07 11:02 | PDOC ---
Infectious Disease Note Subjective: Subjective Patient feels a little better today Right neck pain and swelling persists but improving Missed a few doses as she did not have any IV access Has PICC line in place Denies fever, nausea, vomiting, shortness of breath, diarrhea, abdominal pain, rash Otherwise as above Vital Signs: Vital Signs Vital Signs Date Time Temp Pulse Resp B/P (MAP) Pulse Ox O2 Delivery O2 Flow Rate FiO2 03/07/20 08:23 60 120/54 03/07/20 08:00 Nasal Cannula 2.0 03/07/20 07:00 95.4 18 96 95.4 Physical Exam: PHYSICAL EXAM GENERAL: Alert, oriented x 3 female, lying in bed comfortably, in no acute distress. HEENT: Normocephalic, atraumatic, anicteric. No thrush. NECK: Supple, Right neck area swollen, redness, warmth mass about 2- 3 cm in size firm, tender. Improving slowly no JVD. LUNGS: Clear bilaterally. No wheezing. HEART: S1, S2. ABDOMEN: Soft, nontender, nondistended, obese. Bowel sounds present. EXTREMITIES: Chronic venous stasis, chronic lymphedema. No redness. MUSCULOSKELETAL: No joint effusion. Changes suggestive of DJD. NEUROLOGIC: Alert and oriented x 3, grossly nonfocal. PSYCHIATRIC: Cooperative, appropriate mood. DERMATOLOGIC: Warm, dry. No generalized rash except for above. PICC line looks okay Medications: Inpatient Meds: Current Medications Medications (Trade) Dose Ordered Sig/Macey Start Time Stop Time Status Last Admin Dose Admin Acetaminophen (Tylenol) 650 mg PRN Q4HRS PRN 03/05/20 10:15 Acetaminophen/ Hydrocodone Bitart (Lortab 5/325) 1 tab PRN Q4HRS PRN 03/05/20 10:15 Alprazolam (Xanax) 0.5 mg PRN TID PRN 03/05/20 10:15 03/07/20 08:23 0.5 MG Amlodipine Besylate (Norvasc) 10 mg DAILY 03/06/20 09:00 03/07/20 08:23 10 MG Ascorbic Acid (Vitamin C) 500 mg DAILY 03/07/20 09:00 03/07/20 08:22 500 MG Aspirin (Aspirin Chewable) 81 mg DAILY 03/06/20 09:00 03/07/20 08:23 81 MG Baclofen (Lioresal) 10 mg TID 03/05/20 14:00 03/07/20 08:24 10 MG Bisacodyl (Dulcolax Supp) 10 mg PRN DAILY PRN 03/05/20 10:15 Ceftriaxone Sodium (Rocephin) 1 gm 1X ONCE 03/04/20 23:00 03/04/20 23:01 DC 03/04/20 22:50 1 GM Docusate Sodium (Colace) 100 mg BID 03/05/20 21:00 03/07/20 08:23 100 MG Furosemide (Lasix) 40 mg DAILY 03/06/20 09:00 03/06/20 08:21 40 MG Gabapentin (Neurontin) 300 mg TID 03/05/20 14:00 03/07/20 08:23 300 MG Lactobacillus Rhamnosus (Culturelle) 1 cap BID 03/05/20 21:00 03/07/20 08:23 1 CAP Levothyroxine Sodium (Synthroid) 25 mcg DAILY06 03/06/20 06:00 03/07/20 07:18 25 MCG Lidocaine HCl (Buffered Lidocaine 1%) 3 ml 1X ONCE 03/07/20 08:30 03/07/20 08:32 DC 03/07/20 08:30 3 ML Linezolid/Dextrose 300 ml @ 300 mls/hr Q12HR 03/05/20 11:00 03/06/20 08:23 300 MLS/HR Multivitamins (Thera M Plus) 1 tab DAILY 03/06/20 09:00 03/07/20 08:23 1 TAB Non-Formulary Medication (Glucagon,Human Recombinant (Glucagon Emergency Kit)) 1 mg PRN Q15MIN PRN 03/05/20 10:15 UNV Nystatin (Nystop) 15 campos BID 03/05/20 21:00 03/06/20 21:34 15 CAMPOS Olanzapine (ZyPREXA) 20 mg QHS 03/05/20 21:00 03/06/20 21:31 20 MG Piperacillin Sod/ Tazobactam Sod 3.375 gm/Sodium Chloride 50 ml @ 100 mls/hr Q6HRS 03/06/20 19:00 Polyethylene Glycol (miraLAX PACKET) 17 gm DAILY 03/06/20 09:00 03/07/20 08:22 17 GM Potassium Chloride (Klor-Con) 20 meq [id number] 03/06/20 08:00 03/07/20 08:22 20 MEQ Sodium Chloride 1,000 ml @ 1,000 mls/hr 1X ONCE 03/04/20 21:30 03/04/20 22:29 DC 03/04/20 21:18 1,000 MLS/HR Labs: Lab Laboratory Tests Test 03/06/20 11:27 03/06/20 16:57 03/06/20 23:16 Glucose (Fingerstick) 165 mg/dL (70-99) 86 mg/dL (70-99) 112 mg/dL (70-99) Objective: Assessment: 1. Fever. 2. Right neck cellulitis, early abscess. 3. History of group B strep. 4. Atrial fibrillation. 5. Bipolar disorder with depression. 6. History of congestive heart failure. 7. Degenerative joint disease. 8. Diabetes. 9. Chronic knee pain. 10. Morbid obesity. 11. Peripheral vascular disease. 12. Mild leukocytosis and lactic acidosis. 13. Influenza A and B negative. Plan: Plan of Care 1. Continue Zyvox and Zosyn. 2. f/u blood cultures. 3. CT neck negative for abscess 4. Monitor labs and cultures. 5. Maintain aspiration precaution. 6. COVID-19 negative 7. Continue supportive care. Discussed with nursing. BRANDON BARNARD MD Mar 07, 2020 11:02
[2020-03-07] MEDS: HYDROcodone/APAP 5/325MG 1 TAB TABLET PO PRN (11:31)
[2020-03-07 15:00] VITALS: BP 112/71
[2020-03-07 19:00] VITALS: BP 125/52
[2020-03-07] MEDS: OLANZapine 5 MG TABLET PO SCH (20:59)
[2020-03-07 23:00] VITALS: BP 131/55
--- NOTE | 2020-03-08 00:11 | PN ---
DATE: 03/07/2020 SUBJECTIVE: The patient is resting slightly propped up in bed, in no apparent distress. She is refusing her Lasix as she said that she is incontinent and has to be changed multiple times. She has a Pleur-evac, it was not functioning very well and she would like to have a Blakely catheter, but I explained to her that that will introduce an infection. Her urine culture showed so far no growth and her blood culture showed no growth after 2 days; had had a CT scan of the soft tissue of the neck, which basically showed subtle stranding and edematous appearance of the right external ear including the right external auditory canal and subclavian fluid is noted at the right lower temporal and mastoid level. No other loculated collection correlate for underlying cellulitis or other inflammatory process, right thyroid nodule. Recommend further evaluation with ultrasound exam for more definitive assessment on a non-emergent basis if stability is unknown. OBJECTIVE: GENERAL: When I examined her this morning, she looked well and was clearly in no apparent distress, pale, but no jaundice, cyanosis or thyromegaly. No jugular venous distention. No limb edema. VITAL SIGNS: Her heart rate was 60, blood pressure was 120/54, temperature was 95.4, respiratory rate was 18 and oxygen saturation was 96% on 2 liters of oxygen. HEENT: The right ear continued to be erythematous, although less inflamed and the erythema on the right side of the neck also is fading slowly. HEART: Showed normal first and second heart sounds. No gallop or murmur. CHEST: Clear to auscultation. No crepitation or rhonchi. ABDOMEN: Distended, soft, nontender. NEUROLOGIC: She is awake, alert, responding appropriately. Her intake over the last 24 hours and output were incompletely recorded. LABORATORY DATA: Her lab work this morning showed a white cell count of 8800, hemoglobin 12, hematocrit 35, MCV 90 and platelet count of 161,000. Her chemistry showed a serum sodium of 138, potassium 3.7, chloride 103, bicarbonate 29, anion gap of 6, BUN 21, creatinine 0.9, estimated GFR was 61 mL per minute. Her glucose was 107, calcium was 9.1. Total bilirubin, AST, ALT, alkaline phosphatase were normal. ASSESSMENT: Right neck cellulitis and early abscess, history of group B streptococcus, atrial fibrillation, chronic diastolic congestive heart failure, type 2 diabetes mellitus, morbid obesity, peripheral vascular disease and the patient has severe osteoarthritis of both knee joints. PLAN: To continue with Zyvox and Zosyn. The CT scan of the soft tissue of the neck did not show drainable abscess. The patient does not want Lasix and therefore, I will hold off on that. We will continue with all other medications. JOSEPH XIONG MD DR: SINDI/mina JOB#: [id number] / [id number]
[2020-03-08 03:00] VITALS: BP 121/53
[2020-03-08 04:25] LABS: HEMATOCRIT 35.6 % (36.0-47.0); RED BLOOD COUNT 3.95 x10^6/uL (3.50-5.40); WHITE BLOOD COUNT 4.8 x10^3/uL (4.0-11.0)
[2020-03-08 04:47] LABS: ALBUMIN 2.4 g/dL (3.4-5.0); ALBUMIN/GLOBULIN RATIO 0.6 (1.0-1.7); CREATININE 0.9 mg/dL (0.6-1.0); GFR 61.5; TOTAL BILIRUBIN 0.3 mg/dL (0.2-1.0); TOTAL PROTEIN 6.2 g/dL (6.4-8.2)
[2020-03-08] MEDS: LEVOTHYROXINE 25 MCG TABLET. PO SCH (06:00)
[2020-03-08] MEDS: PIPERACILLIN/TAZOBACTAM 3.375 GM in IV NORMAL SALINE 50ML 50 ML IV SCH (06:01)
[2020-03-08 07:00] VITALS: BP 101/52
[2020-03-08] MEDS: POLYETHYLENE GLYCOL 3350 17 GM PACKET. PO SCH (09:00)
[2020-03-08] MEDS: NYSTATIN TOPICAL POWDER 15GM BOTTLE. TP SCH ×2 (09:00→21:07)
[2020-03-08] MEDS: BACLOFEN 10 MG TABLET. PO SCH ×3 (10:28→20:57)
[2020-03-08] MEDS: ASPIRIN CHEWABLE 81 MG TABLET. PO SCH (10:28)
[2020-03-08] MEDS: LACTOBACILLUS RHAMNOSUS GG 1 CAPSULE. PO SCH ×2 (10:28→20:57)
[2020-03-08] MEDS: DOCUSATE SODIUM 100 MG CAPSULE. PO SCH ×2 (10:28→20:57)
[2020-03-08] MEDS: POTASSIUM CHLORIDE 20 MEQ TABLET.ER. PO SCH (10:29)
[2020-03-08] MEDS: MULTIVITAMIN with MINERAL TABLET. PO SCH (10:29)
[2020-03-08] MEDS: GABAPENTIN 300 MG CAPSULE. PO SCH ×3 (10:30→20:57)
[2020-03-08] MEDS: amLODIPine BESYLATE 10 MG TABLET PO SCH (10:30)
[2020-03-08] MEDS: ASCORBIC ACID 500 MG TABLET PO SCH (10:31)
[2020-03-08 11:00] VITALS: BP 113/53
--- NOTE | 2020-03-08 11:01 | PDOC ---
Infectious Disease Note Subjective: Subjective Patient feels better Right ear ,neck pain and swelling improving Denies fever, nausea, vomiting, shortness of breath, diarrhea, abdominal pain, rash Otherwise as above Vital Signs: Vital Signs Vital Signs Date Time Temp Pulse Resp B/P (MAP) Pulse Ox O2 Delivery O2 Flow Rate FiO2 03/08/20 10:30 69 113/53 03/08/20 08:00 Room Air 03/08/20 07:00 97.5 17 97 97.5 03/07/20 08:00 2.0 Physical Exam: PHYSICAL EXAM GENERAL: Alert, oriented x 3 female, lying in bed comfortably, in no acute distress. HEENT: Normocephalic, atraumatic, anicteric. No thrush. NECK: Supple, Right neck area swollen, redness, warmth mass about 2- 3 cm in size firm, tender. Improving slowly no JVD. LUNGS: Clear bilaterally. No wheezing. HEART: S1, S2. ABDOMEN: Soft, nontender, nondistended, obese. Bowel sounds present. EXTREMITIES: Chronic venous stasis, chronic lymphedema. No redness. MUSCULOSKELETAL: No joint effusion. Changes suggestive of DJD. NEUROLOGIC: Alert and oriented x 3, grossly nonfocal. PSYCHIATRIC: Cooperative, appropriate mood. DERMATOLOGIC: Warm, dry. No generalized rash except for above. PICC line looks okay Medications: Inpatient Meds: Current Medications Medications (Trade) Dose Ordered Sig/Macey Start Time Stop Time Status Last Admin Dose Admin Acetaminophen (Tylenol) 650 mg PRN Q4HRS PRN 03/05/20 10:15 Acetaminophen/ Hydrocodone Bitart (Lortab 5/325) 1 tab PRN Q4HRS PRN 03/05/20 10:15 03/07/20 11:31 1 TAB Alprazolam (Xanax) 0.5 mg PRN TID PRN 03/05/20 10:15 03/07/20 08:23 0.5 MG Amlodipine Besylate (Norvasc) 10 mg DAILY 03/06/20 09:00 03/08/20 10:30 10 MG Ascorbic Acid (Vitamin C) 500 mg DAILY 03/07/20 09:00 03/08/20 10:31 500 MG Aspirin (Aspirin Chewable) 81 mg DAILY 03/06/20 09:00 03/08/20 10:28 81 MG Baclofen (Lioresal) 10 mg TID 03/05/20 14:00 03/08/20 10:28 10 MG Bisacodyl (Dulcolax Supp) 10 mg PRN DAILY PRN 03/05/20 10:15 Ceftriaxone Sodium (Rocephin) 1 gm 1X ONCE 03/04/20 23:00 03/04/20 23:01 DC 03/04/20 22:50 1 GM Docusate Sodium (Colace) 100 mg BID 03/05/20 21:00 03/08/20 10:28 100 MG Furosemide (Lasix) 40 mg DAILY 03/06/20 09:00 03/07/20 11:42 DC 03/06/20 08:21 40 MG Gabapentin (Neurontin) 300 mg TID 03/08/20 09:00 03/08/20 10:30 300 MG Lactobacillus Rhamnosus (Culturelle) 1 cap BID 03/05/20 21:00 03/08/20 10:28 1 CAP Levothyroxine Sodium (Synthroid) 25 mcg DAILY06 03/06/20 06:00 03/08/20 06:00 25 MCG Lidocaine HCl (Buffered Lidocaine 1%) 3 ml 1X ONCE 03/07/20 08:30 03/07/20 08:32 DC 03/07/20 08:30 3 ML Linezolid/Dextrose 300 ml @ 300 mls/hr Q12HR 03/05/20 11:00 03/08/20 10:27 300 MLS/HR Multivitamins (Thera M Plus) 1 tab DAILY 03/06/20 09:00 03/08/20 10:29 1 TAB Non-Formulary Medication (Glucagon,Human Recombinant (Glucagon Emergency Kit)) 1 mg PRN Q15MIN PRN 03/05/20 10:15 UNV Nystatin (Nystop) 15 campos BID 03/05/20 21:00 03/08/20 09:00 15 CAMPOS Olanzapine (ZyPREXA) 20 mg QHS 03/05/20 21:00 03/07/20 20:59 20 MG Piperacillin Sod/ Tazobactam Sod 3.375 gm/Sodium Chloride 50 ml @ 100 mls/hr Q6HRS 03/07/20 18:00 03/08/20 06:01 100 MLS/HR Polyethylene Glycol (miraLAX PACKET) 17 gm DAILY 03/06/20 09:00 03/07/20 08:22 17 GM Potassium Chloride (Klor-Con) 20 meq [id number] 03/06/20 08:00 03/08/20 10:29 20 MEQ Sodium Chloride 1,000 ml @ 1,000 mls/hr 1X ONCE 03/04/20 21:30 03/04/20 22:29 DC 03/04/20 21:18 1,000 MLS/HR Labs: Lab Laboratory Tests Test 03/07/20 20:44 03/08/20 04:05 03/08/20 07:48 Glucose (Fingerstick) 128 mg/dL (70-99) 93 mg/dL (70-99) White Blood Count 4.8 x10^3/uL (4.0-11.0) Red Blood Count 3.95 x10^6/uL (3.50-5.40) Hemoglobin 12.0 g/dL (12.0-15.5) Hematocrit 35.6 % (36.0-47.0) Mean Corpuscular Volume 90 fL (79-100) Mean Corpuscular Hemoglobin 30 pg (25-35) Mean Corpuscular Hemoglobin Concent 34 g/dL (31-37) Red Cell Distribution Width 13.0 % (11.5-14.5) Platelet Count 191 x10^3/uL (140-400) Sodium Level 143 mmol/L (136-145) Potassium Level 4.0 mmol/L (3.5-5.1) Chloride Level 105 mmol/L (98-107) Carbon Dioxide Level 30 mmol/L (21-32) Anion Gap 8 (6-14) Blood Urea Nitrogen 22 mg/dL (7-20) Creatinine 0.9 mg/dL (0.6-1.0) Estimated GFR (Cockcroft-Gault) 61.5 BUN/Creatinine Ratio 24 (6-20) Glucose Level 104 mg/dL (70-99) Calcium Level 9.0 mg/dL (8.5-10.1) Total Bilirubin 0.3 mg/dL (0.2-1.0) Aspartate Amino Transf (AST/SGOT) 18 U/L (15-37) Alanine Aminotransferase (ALT/SGPT) 20 U/L (14-59) Alkaline Phosphatase 75 U/L (46-116) Total Protein 6.2 g/dL (6.4-8.2) Albumin 2.4 g/dL (3.4-5.0) Albumin/Globulin Ratio 0.6 (1.0-1.7) Objective: Assessment: 1. Fever. 2. Right neck cellulitis, early abscess. 3. History of group B strep. 4. Atrial fibrillation. 5. Bipolar disorder with depression. 6. History of congestive heart failure. 7. Degenerative joint disease. 8. Diabetes. 9. Chronic knee pain. 10. Morbid obesity. 11. Peripheral vascular disease. 12. Mild leukocytosis and lactic acidosis. 13. Influenza A and B negative. Plan: Plan of Care 1. Continue Zyvox DC Zosyn, start ceftriaxone 2. f/u blood cultures. 3. CT neck negative for abscess 4. Monitor labs and cultures. 5. Maintain aspiration precaution. 6. COVID-19 negative 7. Continue supportive care. Hopefully can discharge tomorrow if stable Discussed with nursing. BRANDON BARNARD MD Mar 08, 2020 11:01
[2020-03-08] MEDS ORDERED: cefTRIAXone IV Push 2 GM VIAL. IVP SCH (12:00)
--- NOTE | 2020-03-08 12:19 | PN ---
DATE: 03/08/2020 SUBJECTIVE: The patient is resting, slightly propped up in bed, in no apparent distress. On questioning her, denied any complaint. The redness and swelling of the right ear and right side of the neck is subsiding slowly. CT scan showed no evidence of any drainable abscess. PHYSICAL EXAMINATION: GENERAL: When I saw her today, she looked well and was clearly in no apparent distress. No pallor, jaundice, cyanosis or thyromegaly. No jugular venous distention. No lower limb edema. VITAL SIGNS: Her heart rate was 69, blood pressure was 113/53, temperature 97.5, respiratory rate was 17 and oxygen saturation was 97% on room air. HEAD, EYES, EARS, NOSE AND THROAT: Showed normocephalic, atraumatic. The right ear and right-sided neck is erythematous, but the swelling and erythema is fading slowly. NECK: Supple. CARDIAC: Normal first and second heart sounds. No gallop, rub or murmur. CHEST: Clear to auscultation. No crepitation or rhonchi. ABDOMEN: Distended, soft, nontender. NEUROLOGIC: She is definitely more awake, alert, responding appropriately. All cranial nerves intact. She moves all extremities without difficulty. She is mostly bedbound, chair bound. Her intake over the last 24 hours was 590, output was 750. LABORATORY DATA: Her lab work showed a white cell count 4800, hemoglobin 12, hematocrit 36, MCV 90 and platelet count 191,000. Her chemistry showed a serum sodium 143, potassium 4, chloride 105, bicarbonate 30, anion gap of 8, BUN 22, creatinine 0.9, estimated GFR was 61 mL per minute. ASSESSMENT: 1. Right neck and right ear cellulitis, for which she is on IV Zyvox. Her Zosyn was discontinued and now she is on Ancef as per infectious disease specialist recommendation. 2. History of group B Streptococcus infection. 3. Atrial fibrillation. 4. Chronic diastolic congestive heart failure. 5. Type 2 diabetes mellitus. 6. Morbid obesity. 7. Peripheral vascular disease. 8. Severe osteoarthritis of both knee joints. PLAN: To continue with Zyvox as well as Ancef and she might be able to go to [facility] to continue on oral Zyvox and IV Ancef hopefully tomorrow. JOSEPH XIONG MD DR: [place] JOB#: [id number] / [id number]
--- NOTE | 2020-03-08 12:30 | RAD ---
Exam: Fluoroscopic and ultrasound guided right percutaneous inserted central venous catheter placement 03/08/2020 10:27 AM .Indication: IV ANTIBIOTICS Technique: Informed oral and written consent were obtained. The right upper extremity was prepped and draped using sterile barrier technique. All elements of maximal sterile barrier technique including the use of a cap, mask, sterile gown, sterile gloves, large sterile sheet, appropriate hand hygiene, and 2% chlorhexidine for cutaneous antisepsis (or acceptable alternative antiseptic per current guidelines) were followed for this procedure.. Real-time ultrasound demonstrated a patent right basilic vein which was prepped and draped in usual sterile fashion. 1% lidocaine used for local anesthesia. Using real-time ultrasound guidance the access needle percutaneously punctured the selected right basilic vein. Reference ultrasound images were saved to the medical record. A guidewire was advanced through the needle to the cavoatrial junction, and a peel-away sheath placed. The catheter was cut to length and inserted through the peel-away sheath such that its tip is at the cavoatrial junction. The wire and sheath were removed, and the catheter secured in place, and a sterile dressing was applied. Catheter was found to flush and aspirate normally. No immediate complications are identified. FLUORO TIME: 0.9 DOSE AREA PRODUCT: 2 Gycm2 Impression: Ultrasound and fluoroscopically guided placement of a right upper extremity PICC line.
[2020-03-08 15:43] VITALS: BP 103/55
[2020-03-08 19:00] VITALS: BP 115/58
[2020-03-08] MEDS: OLANZapine 5 MG TABLET PO SCH (20:57)
[2020-03-08] MEDS: LINEZOLID 600 MG TABLET PO SCH (20:57)
[2020-03-08 23:00] VITALS: BP 126/66
[2020-03-09 03:00] VITALS: BP 119/62
[2020-03-09 04:38] LABS: CALCIUM 9.1 mg/dL (8.5-10.1); CREATININE 0.9 mg/dL (0.6-1.0); GFR 61.5
[2020-03-09] MEDS: LEVOTHYROXINE 25 MCG TABLET. PO SCH (06:21)
[2020-03-09 07:00] VITALS: BP 106/58
[2020-03-09] MEDS: ASCORBIC ACID 500 MG TABLET PO SCH (08:12)
[2020-03-09] MEDS: DOCUSATE SODIUM 100 MG CAPSULE. PO SCH (08:12)
[2020-03-09] MEDS: BACLOFEN 10 MG TABLET. PO SCH (08:12)
[2020-03-09] MEDS: MULTIVITAMIN with MINERAL TABLET. PO SCH (08:12)
[2020-03-09] MEDS: LINEZOLID 600 MG TABLET PO SCH (08:12)
[2020-03-09] MEDS: POTASSIUM CHLORIDE 20 MEQ TABLET.ER. PO SCH (08:13)
[2020-03-09] MEDS: amLODIPine BESYLATE 10 MG TABLET PO SCH (08:13)
[2020-03-09] MEDS: LACTOBACILLUS RHAMNOSUS GG 1 CAPSULE. PO SCH (08:13)
[2020-03-09] MEDS: ASPIRIN CHEWABLE 81 MG TABLET. PO SCH (08:13)
[2020-03-09] MEDS: POLYETHYLENE GLYCOL 3350 17 GM PACKET. PO SCH (08:13)
[2020-03-09] MEDS: HYDROcodone/APAP 5/325MG 1 TAB TABLET PO PRN (08:14)
[2020-03-09] MEDS: GABAPENTIN 300 MG CAPSULE. PO SCH (08:14)
[2020-03-09] MEDS: NYSTATIN TOPICAL POWDER 15GM BOTTLE. TP SCH (08:15)
--- NOTE | 2020-03-09 09:24 | PDOC ---
Infectious Disease Note Subjective: Subjective Patient feels better Right ear ,neck pain and swelling improving Denies fever, nausea, vomiting, shortness of breath, diarrhea, abdominal pain, rash Otherwise as above Vital Signs: Vital Signs Vital Signs Date Time Temp Pulse Resp B/P (MAP) Pulse Ox O2 Delivery O2 Flow Rate FiO2 03/09/20 08:14 16 Room Air 03/09/20 08:13 72 106/58 03/09/20 07:00 97.9 96 97.9 Physical Exam: PHYSICAL EXAM GENERAL: Alert, oriented x 3 female, lying in bed comfortably, in no acute distress. HEENT: Normocephalic, atraumatic, anicteric. No thrush. NECK: Supple, Right neck area swollen, redness, warmth mass about 2- 3 cm in size firm, tender. Improving slowly no JVD. LUNGS: Clear bilaterally. No wheezing. HEART: S1, S2. ABDOMEN: Soft, nontender, nondistended, obese. Bowel sounds present. EXTREMITIES: Chronic venous stasis, chronic lymphedema. No redness. MUSCULOSKELETAL: No joint effusion. Changes suggestive of DJD. NEUROLOGIC: Alert and oriented x 3, grossly nonfocal. PSYCHIATRIC: Cooperative, appropriate mood. DERMATOLOGIC: Warm, dry. No generalized rash except for above. PICC line looks okay Medications: Inpatient Meds: Current Medications Medications (Trade) Dose Ordered Sig/Macey Start Time Stop Time Status Last Admin Dose Admin Acetaminophen (Tylenol) 650 mg PRN Q4HRS PRN 03/05/20 10:15 Acetaminophen/ Hydrocodone Bitart (Lortab 5/325) 1 tab PRN Q4HRS PRN 03/05/20 10:15 03/09/20 08:14 1 TAB Alprazolam (Xanax) 0.5 mg PRN TID PRN 03/05/20 10:15 03/07/20 08:23 0.5 MG Amlodipine Besylate (Norvasc) 10 mg DAILY 03/06/20 09:00 03/09/20 08:13 10 MG Ascorbic Acid (Vitamin C) 500 mg DAILY 03/07/20 09:00 03/09/20 08:12 500 MG Aspirin (Aspirin Chewable) 81 mg DAILY 03/06/20 09:00 03/09/20 08:13 81 MG Baclofen (Lioresal) 10 mg TID 03/05/20 14:00 03/09/20 08:12 10 MG Bisacodyl (Dulcolax Supp) 10 mg PRN DAILY PRN 03/05/20 10:15 Ceftriaxone Sodium (Rocephin) 2 gm Q24H 03/08/20 12:00 03/08/20 13:32 2 GM Docusate Sodium (Colace) 100 mg BID 03/05/20 21:00 03/09/20 08:12 100 MG Furosemide (Lasix) 40 mg DAILY 03/06/20 09:00 03/07/20 11:42 DC 03/06/20 08:21 40 MG Gabapentin (Neurontin) 300 mg TID 03/08/20 09:00 03/09/20 08:14 300 MG Lactobacillus Rhamnosus (Culturelle) 1 cap BID 03/05/20 21:00 03/09/20 08:13 1 CAP Levothyroxine Sodium (Synthroid) 25 mcg DAILY06 03/06/20 06:00 03/09/20 06:21 25 MCG Lidocaine HCl (Buffered Lidocaine 1%) 3 ml 1X ONCE 03/07/20 08:30 03/07/20 08:32 DC 03/07/20 08:30 3 ML Linezolid (Zyvox) 600 mg BID 03/08/20 21:00 03/09/20 08:12 600 MG Linezolid/Dextrose 300 ml @ 300 mls/hr Q12HR 03/05/20 11:00 03/08/20 11:02 DC 03/08/20 10:27 300 MLS/HR Multivitamins (Thera M Plus) 1 tab DAILY 03/06/20 09:00 03/09/20 08:12 1 TAB Non-Formulary Medication (Glucagon,Human Recombinant (Glucagon Emergency Kit)) 1 mg PRN Q15MIN PRN 03/05/20 10:15 UNV Nystatin (Nystop) 15 campos BID 03/05/20 21:00 03/09/20 08:15 15 CAMPOS Olanzapine (ZyPREXA) 20 mg QHS 03/05/20 21:00 03/08/20 20:57 20 MG Piperacillin Sod/ Tazobactam Sod 3.375 gm/Sodium Chloride 50 ml @ 100 mls/hr Q6HRS 03/07/20 18:00 03/08/20 11:02 DC 03/08/20 06:01 100 MLS/HR Polyethylene Glycol (miraLAX PACKET) 17 gm DAILY 03/06/20 09:00 03/09/20 08:13 17 GM Potassium Chloride (Klor-Con) 20 meq [id number] 03/06/20 08:00 03/09/20 08:13 20 MEQ Sodium Chloride 1,000 ml @ 1,000 mls/hr 1X ONCE 03/04/20 21:30 03/04/20 22:29 DC 03/04/20 21:18 1,000 MLS/HR Labs: Lab Laboratory Tests Test 03/08/20 11:32 03/08/20 16:34 03/08/20 20:37 03/09/20 04:10 Glucose (Fingerstick) 176 mg/dL (70-99) 93 mg/dL (70-99) 125 mg/dL (70-99) Sodium Level 143 mmol/L (136-145) Potassium Level 4.0 mmol/L (3.5-5.1) Chloride Level 108 mmol/L (98-107) Carbon Dioxide Level 29 mmol/L (21-32) Anion Gap 6 (6-14) Blood Urea Nitrogen 18 mg/dL (7-20) Creatinine 0.9 mg/dL (0.6-1.0) Estimated GFR (Cockcroft-Gault) 61.5 Glucose Level 101 mg/dL (70-99) Calcium Level 9.1 mg/dL (8.5-10.1) Test 03/09/20 07:45 Glucose (Fingerstick) 94 mg/dL (70-99) Objective: Assessment: 1. Fever. 2. Right neck cellulitis, early abscess. 3. History of group B strep. 4. Atrial fibrillation. 5. Bipolar disorder with depression. 6. History of congestive heart failure. 7. Degenerative joint disease. 8. Diabetes. 9. Chronic knee pain. 10. Morbid obesity. 11. Peripheral vascular disease. 12. Mild leukocytosis and lactic acidosis. 13. Influenza A and B negative. Plan: Plan of Care Dose ceftriaxone today, then DC Discharged on Zyvox 600 mg p.o. twice daily for 7 more days Local care Okay to discharge from ID standpoint DC PICC line if not needed BRANDON BARNARD MD Mar 09, 2020 09:24
--- NOTE | 2020-03-09 10:20 | SNU/HH DC ---
DISCHARGE ORDERS DISCHARGE INFORMATION: DISCHARGE DATE: Mar 09, 2020 FINAL DIAGNOSIS Problems Medical Problems: (1) Fever Status: Acute (2) Suspected COVID-19 virus infection Status: Acute RIGHT EAR CELLULITIS' SEPSIS CONDITION ON DISCHARGE: Stable CODE STATUS: Code Status: Full SENIOR LIVING: SNF STAY <30 DAYS: Yes POST DISCHARGE ORDERS: ACTIVITY ORDERS: Activity as tolerated WEIGHT BEARING STATUS: As tolerated BATHING ORDERS: Shower-keep dressing dry, No Tub Bath until see Dr. MARX AFTER DISCHARGE: Cardiac WOUND/INCISION CARE: Keep wound elevated, Change dressing CHECKS AFTER DISCHARGE: CHECKS AFTER DISCHARGE: Check blood press - daily, Check blood sugar, ac/hs FOLLOW-UP: LAB ORDERS FOR FOLLOW-UP: cbc/cmp weekly for 4 weeks ,notify [facility] doctor about TREATMENT/EQUIPMENT ORDERS: ADAPTIVE EQUIPMENT NEEDED: None RESPIRATORY EQUIPMENT NEEDED: Oxygen Physical Therapy For: Evalulation/Treatment Occupational Therapy For: Evaluation/Treatment Speech Language Pathology For: Evaluation/Treatment DISCHARGE MEDICATIONS: Home Meds Active Scripts Potassium Chloride (KLOR-CON M20) 20 Meq Tab.er.prt, 20 MEQ PO DAILYWBKFT for pot for 30 Days, #30 TAB.SR Prov:DAWSON ROY MD 04/14/19 Levothyroxine Sodium (SYNTHROID) 25 Mcg Tablet, 25 MCG PO DAILY06 for thyroid for 30 Days, #30 TAB Prov:DAWSON ROY MD 04/14/19 Reported Medications Acetaminophen (ACETAMINOPHEN) 500 Mg Tablet, 2 TAB PO PRN Q6HRS PRN for pain or fever for 15 Days, #60 TAB 0 Refills 03/05/20 Furosemide (FUROSEMIDE) 40 Mg Tablet, 1 TAB PO DAILY for edema, #30 TAB 5 Refills 11/02/19 Docusate Sodium (Colace Clear) 50 Mg Capsule, 1 CAP PO BID for constipation for 30 Days, #60 CAP 0 Refills 08/18/19 Polyethylene Glycol 3350 (MIRALAX) 17 Gm Powd.pack, 1 PACKET PO DAILY for constipation for 2 Days, #2 PACKET 0 Refills dissolve in water 08/18/19 Gabapentin (GABAPENTIN ) 100 Mg Capsule, 300 MG PO TID for NEUROGENIC PAIN, CAP 12/12/18 Baclofen (BACLOFEN) 10 Mg Tablet, 1 TAB PO TID for muscle spasms, #90 TAB 2 Refills 12/12/18 Hydrocodone/Apap 5-325 (NORCO 5-325 TABLET) 1 Each Tablet, 1-2 TAB PO Q4HRS PRN for PAIN, #40 TAB 07/10/17 Glucagon,Human Recombinant (GLUCAGON EMERGENCY KIT) 1 Mg Kit, 1 MG IM PRN Q15MIN PRN for LOW BLOOD SUGAR, #2 KIT 5 Refills 07/10/17 Bisacodyl (BISCOLAX) 10 Mg Supp.rect, 10 MG RC PRN DAILY PRN for CONSTIPATION, SUPP.RECT 07/10/17 Alprazolam (ALPRAZOLAM) 0.5 Mg Tablet, 1 TAB PO PRN TID PRN for ANXIETY, #30 TAB 07/10/17 Nystatin (NYAMYC) 15 Gm Powder, 15 GM TP BID, MISC 07/10/17 Multivits, W-,Other Min (THERA-M) 1 Each Tablet, 1 EACH PO DAILY, TAB 07/10/17 Olanzapine (OLANZAPINE) 20 Mg Tablet, 10 MG PO DAILY for bipolar, TAB 07/10/17 Aspirin (ASPIRIN) 81 Mg Tab.chew, 1 TAB PO DAILY, #30 TAB 3 Refills 07/10/17 Amlodipine Besylate (AMLODIPINE BESYLATE) 10 Mg Tablet, 10 MG PO DAILY, TAB 07/10/17 JOSEPH XIONG MD Mar 09, 2020 10:20
--- NOTE | 2020-03-09 10:51 | DS ---
DATE OF DISCHARGE: 03/09/2020 HOSPITAL COURSE: The patient is a 74-year-old female patient who presented to the Emergency Room with fever and altered mental status. Initial evaluation was unrevealing, eventually discovered that she has cellulitis involving her right ear and right side of the neck, which she was started on IV Zosyn and vancomycin. We did a CT scan of the soft tissue of the neck, which basically showed subtle stranding and edematous appearance of the right external ear including the right external auditory canal. Subgaleal fluid is noted at the right lower temporal and mastoid level. No other loculated collection. She was seen in consultation by Dr. Mclean and her antibiotic was switched to IV ceftriaxone as well as linezolid. The redness and swelling of her right ear is gradually subsiding. Her white cell count came down nicely from 11,000 to 4800. She has been afebrile, hemodynamically stable throughout her stay and a decision was made to discharge her back to [facility] [place] to continue on oral Zyvox. PHYSICAL EXAMINATION: GENERAL: When I saw her today, she looked well and was clearly in no apparent respiratory distress. No pallor, jaundice, cyanosis or thyromegaly. No jugular venous distention. No lower limb edema. VITAL SIGNS: Her heart rate was 72, blood pressure was 106/58, temperature was 97.9, respiratory rate was 17 and oxygen saturation was 96%. HEAD, EYES, EARS, NOSE AND THROAT: Showed normocephalic, atraumatic. The right ear and right-sided neck erythema and swelling are subsiding, although has not completely resolved. HEART: Showed normal first and second heart sounds with no gallop, rub or murmur. CHEST: Clear to auscultation. No crepitation or rhonchi. ABDOMEN: Distended, soft, nontender. NEUROLOGIC: She is awake, alert, responding appropriately. All her cranial nerves are intact. She moves upper extremities to much good extent than lower extremities. She is mostly bedbound, chair bound. Her intake was 1300, output was 1300. LABORATORY DATA: Her white cell count was 4800, hemoglobin 12, hematocrit 36, MCV 90 and platelet count of 191,000. Her chemistry showed a serum sodium 143, potassium 4, chloride 108, bicarbonate 29, anion gap of 6, BUN 18, creatinine was 0.9 mg/dL, estimated GFR was 61 mL per minute. Her glucose 101, calcium was 9.1. DISCHARGE MEDICATIONS: The patient was discharged back to [facility] [place] to continue on Zyvox 600 mg twice a day for 10 days, Tylenol 650 mg every 6 hours, alprazolam 0.5 mg t.i.d. p.r.n. for anxiety, amlodipine 10 mg once a day, aspirin 81 mg once a day, baclofen 10 mg 3 times a day, Dulcolax 10 mg suppositories rectally daily p.r.n. for constipation, docusate sodium 100 mg twice a day, furosemide 40 mg daily, gabapentin 300 mg 3 times a day, glucagon 1 mg intramuscular as needed for hypoglycemia, hydrocodone/APAP 5/325 one tablet every 4 hours, levothyroxine sodium 25 mcg once a day, multivitamin 1 tablet once a day, nystatin powder twice a day, olanzapine 20 mg at bedtime, polyethylene glycol 17 grams daily, potassium chloride 20 mEq daily. FINAL DISCHARGE DIAGNOSES: 1. Sepsis. 2. Right ear cellulitis. 3. She has multiple other medical problems including: A. Chronic atrial fibrillation, rate controlled, not on anticoagulation. B. Hypertension. C. Hyperlipidemia. D. Morbid obesity. E. Probably obstructive sleep apnea. F. Severe osteoarthritis of both knee joints. G. Recurrent bilateral lower extremity cellulitis. JOSEPH XIONG MD DR: SINDI/mina JOB#: [id number] / [id number]
[2020-03-09 11:27] VITALS: BP 104/63
[2020-03-09] MEDS ORDERED: cefTRIAXone IV Push 2 GM VIAL. IVP ONE (12:00)
--- NOTE | 2020-03-09 13:55 | NUR ---
Nurse exchange report called to LEO Koenig at [facility], [place].
== END 2020-03-09 13:55 | DRG 871 ==
LOC: ER 20:32 → 6 SOUTH 23:51
PROVIDERS: ADMIT Internal Medicine; ATTEND Internal Medicine
PROC: 02HV33Z Insertion of Infusion Device into Superior Vena Cava, Percutaneous Approach (ICD-10-PCS; principal; 2020-03-08)
PROC: B5181ZA Fluoroscopy of Superior Vena Cava using Low Osmolar Contrast, Guidance (ICD-10-PCS; 2020-03-08)
PROC: B548ZZA Ultrasonography of Superior Vena Cava, Guidance (ICD-10-PCS; 2020-03-08)
DX: A41.9 Sepsis, unspecified organism (principal); G93.41 Metabolic encephalopathy; L03.221 Cellulitis of neck; I50.32 Chronic diastolic (congestive) heart failure; Z68.43 Body mass index [BMI] 50.0-59.9, adult; Z20.828 Contact with and (suspected) exposure to other viral communicable diseases; E11.51 Type 2 diabetes mellitus with diabetic peripheral angiopathy without gangrene; E66.01 Morbid (severe) obesity due to excess calories; E78.00 Pure hypercholesterolemia, unspecified; E78.5 Hyperlipidemia, unspecified; F31.9 Bipolar disorder, unspecified; M17.0 Bilateral primary osteoarthritis of knee; J44.9 Chronic obstructive pulmonary disease, unspecified; I89.0 Lymphedema, not elsewhere classified; I87.8 Other specified disorders of veins; I48.0 Paroxysmal atrial fibrillation; I11.0 Hypertensive heart disease with heart failure; G47.33 Obstructive sleep apnea (adult) (pediatric); G89.29 Other chronic pain; F41.9 Anxiety disorder, unspecified; M54.2 Cervicalgia; H60.11 Cellulitis of right external ear; Z74.01 Bed confinement status; Z87.01 Personal history of pneumonia (recurrent); Z99.3 Dependence on wheelchair
CPT/HCPCS: 36415; 36573; 70490; 71045; 77001; 80048; 80053; 81001; 82962; 83605; 83880; 84443; 84484; 85025; 85027; 87040; 87086; 87804; 93005; 96361; 96374; 99285; C1751; J0696; J2020; J2543; J3490; J7030; P9612; G0378; U0003-CS

== ENCOUNTER 2020-03-27 02:25 | Inpatient (IN) | payer MEDICARE, OTHER ==
[~2020-03-27] VITALS: Ht 162.6 cm; Wt 145.5 kg
[~2020-03-27 02:25] MED LIST changes: +ACET500T68 PO
[2020-03-27] MEDS ORDERED: IV NORMAL SALINE 1000ML BAG 1,000 ML IV ONE (02:45)
[2020-03-27] MEDS ORDERED: ACETAMINOPHEN 650 MG SUPP.RECT. PR ONE (03:00)
[2020-03-27] MEDS ORDERED: cefTRIAXone IV Push 1 GM VIAL. IVP ONE (03:00)
[2020-03-27 03:17] LABS: BASO % 0 % (0-3); EOS % 0 % (0-3); HEMATOCRIT 36.8 % (36.0-47.0); HEMOGLOBIN 12.7 g/dL (12.0-15.5); LYMPH # 1.5 x10^3/uL (1.0-4.8); LYMPH % 14 % (24-48); MEAN CORPUSCULAR HEMOGLOBIN 30 pg (25-35); MEAN CORPUSCULAR HGB CONC 34 g/dL (31-37); MEAN CORPUSCULAR VOLUME 88 fL (79-100); MONO # 0.7 x10^3/uL (0.0-1.1); MONO % 7 % (0-9); NEUT # 8.6 x10^3/uL (1.8-7.7); NEUT % 80 % (31-73); PLATELET COUNT 135 x10^3/uL (140-400); RED BLOOD COUNT 4.18 x10^6/uL (3.50-5.40); RED CELL DISTRIBUTION WIDTH 13.5 % (11.5-14.5); WHITE BLOOD COUNT 10.8 x10^3/uL (4.0-11.0)
--- NOTE | 2020-03-27 03:47 | RAD ---
AP chest. HISTORY: Altered mental status, fever AP view was taken of the chest. Heart is enlarged. Patient's taken a poor inspiration. There is no effusion. There are no confluent infiltrates. IMPRESSION: 1. Poor inspiration. 2. No definite infiltrates. Electronically signed by: Dhaval Shah MD (03/27/2020 3:44 AM) [id number]
[2020-03-27 03:59] LABS: BILIRUBIN,URINE NEGATIVE (NEG); CLARITY,URINE CLEAR; COLOR,URINE YELLOW; NITRITE,URINE NEGATIVE (NEG); PROTEIN,URINE NEGATIVE (NEG-TRACE); UROBILINOGEN,URINE 0.2 mg/dL (0.2 mg/dL)
[2020-03-27 04:04] LABS: SQUAMOUS EPITHELIAL CELL,UR FEW /LPF
[2020-03-27 04:05] LABS: BACTERIA,URINE 0 /HPF (0-FEW); RBC,URINE 0 /HPF (0-2); WBC,URINE RARE /HPF (0-4)
[2020-03-27] MEDS ORDERED: dilTIAZem IV PUSH 25 MG/5 ML VIAL IVP ONE (04:30)
--- NOTE | 2020-03-27 05:04 | PHYS DOC ---
Past Medical History Past Medical History: A-Fib, Bipolar, CHF, COPD, Depression, Diabetes-Type II, High Cholesterol, Pneumonia Additional Past Medical Histor: CH KNEE PAIN,MORBID OBESITY,PVD,POS,SEPSIS,KIDNEY FAIL, Past Surgical History: No Surgical History Additional Past Surgical Histo: UNKNOWN Smoking Status: Former Smoker Alcohol Use: None Drug Use: None General Adult EDM: Chief Complaint: ALTERED MENTAL STATUS HPI: HPI: 74-year-old female past medical history A. fib hypertension hyperlipidemia obstructive sleep apnea presents from assisted for evaluation of altered mental status. Per report from assisted patient altered progressively getting worse through the day. MCC states patient with similar symptoms with previous UTI/urosepsis. On arrival patient is febrile and tachycardic. Patient is unable to provide much of a history. Patient complains of bilateral leg pain. In review of past medical records-- patient recently admitted for facial cellulitis. Review of Systems: Review of Systems: unable to provided history due to medical condition Heart Score: Risk Factors: Risk Factors: DM, Current or recent (<one month) smoker, HTN, HLP, family h istory of CAD, obesity. Risk Scores: Score 0 - 3: 2.5% MACE over next 6 weeks - Discharge Home Score 4 - 6: 20.3% MACE over next 6 weeks - Admit for Clinical Observation Score 7 - 10: 72.7% MACE over next 6 weeks - Early Invasive Strategies Current Medications: Current Medications Medications (Trade) Dose Ordered Sig/Macey Start Time Stop Time Status Last Admin Dose Admin Acetaminophen (Tylenol Supp) 650 mg 1X ONCE 03/27/20 03:00 03/27/20 03:13 DC 03/27/20 03:28 650 MG Ceftriaxone Sodium (Rocephin) 1 gm 1X ONCE 03/27/20 03:00 03/27/20 03:13 DC 03/27/20 03:27 1 GM Diltiazem HCl (Cardizem Iv Push) 20 mg 1X ONCE 03/27/20 04:30 03/27/20 04:31 DC 03/27/20 04:29 20 MG Sodium Chloride 1,000 ml @ 1,000 mls/hr 1X ONCE 03/27/20 02:45 03/27/20 03:44 DC 03/27/20 03:08 1,000 MLS/HR Allergies: Allergies: Allergies Coded Allergies Type Severity Reaction Last Updated Verified No Known Medication Allergies Allergy Unknown 10/14/17 Yes Physical Exam: PE: HENT: Normocephalic, atraumatic, redness right facial, oropharynx moist, no oral exudates, nose normal. [] Eyes: EOMI, conjunctiva normal, no discharge. [] Neck: Normal range of motion, no tenderness, supple, no stridor. [] Cardiovascular:tachycardia Lungs & Thorax: no respiratory distress Abdomen: soft, no tenderness, no masses, Skin: Warm, dry, no erythema, no rash. [] Back: No tenderness, no CVA tenderness. [] Extremities: , no edema. [] Neurologic: Alert , normal motor function, normal sensory function, no focal deficits noted. [] Current Patient Data: Labs: Laboratory Tests Test 03/27/20 03:00 03/27/20 03:50 White Blood Count 10.8 x10^3/uL (4.0-11.0) Red Blood Count 4.18 x10^6/uL (3.50-5.40) Hemoglobin 12.7 g/dL (12.0-15.5) Hematocrit 36.8 % (36.0-47.0) Mean Corpuscular Volume 88 fL (79-100) Mean Corpuscular Hemoglobin 30 pg (25-35) Mean Corpuscular Hemoglobin Concent 34 g/dL (31-37) Red Cell Distribution Width 13.5 % (11.5-14.5) Platelet Count 135 x10^3/uL (140-400) L Neutrophils (%) (Auto) 80 % (31-73) H Lymphocytes (%) (Auto) 14 % (24-48) L Monocytes (%) (Auto) 7 % (0-9) Eosinophils (%) (Auto) 0 % (0-3) Basophils (%) (Auto) 0 % (0-3) Neutrophils # (Auto) 8.6 x10^3/uL (1.8-7.7) H Lymphocytes # (Auto) 1.5 x10^3/uL (1.0-4.8) Monocytes # (Auto) 0.7 x10^3/uL (0.0-1.1) Eosinophils # (Auto) 0.0 x10^3/uL (0.0-0.7) Basophils # (Auto) 0.0 x10^3/uL (0.0-0.2) Lactic Acid Level 3.8 mmol/L (0.4-2.0) H Urine Collection Type U cath Urine Color Yellow Urine Clarity Clear Urine pH 5.0 (<5.0-8.0) Urine Specific [place] 1.015 (1.000-1.030) Urine Protein Negative mg/dL (NEG-TRACE) Urine Glucose (UA) Negative mg/dL (NEG) Urine Ketones (Stick) Negative mg/dL (NEG) Urine Blood Negative (NEG) Urine Nitrite Negative (NEG) Urine Bilirubin Negative (NEG) Urine Urobilinogen Dipstick 0.2 mg/dL (0.2 mg/dL) Urine Leukocyte Esterase Negative (NEG) Urine RBC 0 /HPF (0-2) Urine WBC Rare /HPF (0-4) Urine Squamous Epithelial Cells Few /LPF Urine Bacteria 0 /HPF (0-FEW) Urine Mucus Mod /LPF Laboratory Tests 03/27/20 03:00 Vital Signs: Vital Signs Date Time Temp Pulse Resp B/P (MAP) Pulse Ox O2 Delivery O2 Flow Rate FiO2 03/27/20 04:29 122 136/76 03/27/20 02:25 102.5 34 92 Nasal Cannula 2.0 102.5 EKG: EKG: EKG [] time taken 416 Heart rate 121 A. fib Radiology/Procedures: Radiology/Procedures: [] Impression: AP chest. HISTORY: Altered mental status, fever AP view was taken of the chest. Heart is enlarged. Patient's taken a poor inspiration. There is no effusion. There are no confluent infiltrates. IMPRESSION: 1. Poor inspiration. 2. No definite infiltrates. Course & Med Decision Making: Course & Med Decision Making Pertinent Labs and Imaging studies reviewed. (See chart for details) [] Patient was evaluated for chief complaint. Work-up consisted of laboratory analysis radiologic imaging and EKG. Results reviewed. Patient EKG A. fib with RVR. Patient was treated with Cardizem 20 mg bolus and IV fluids.. Heart rate in the 80s A. fib rate controlled. Patient was febrile treated with Tylenol. Chest x-ray no focal infiltrates. Urine without signs of infection. Patient observed--- mental status improved. Patients complains for bilateral lower extremity pain. Patient admitted to hospitalist. Joshua Disclaimer: Dragon Disclaimer: This electronic medical record was generated, in whole or in part, using a voice recognition dictation system. Departure Departure Impression: Primary Impression: Afib Additional Impressions: Altered mental status Fever Disposition: 09 ADMITTED INPATIENT Admitting Physician: LYSSA Condition: STABLE Referrals: JOSEPH XIONG MD (PCP) Justicifation of Admission Dx: Justifications for Admission: Justification of Admission Dx: N/A GRABIEL ZAPATA DO Mar 27, 2020 05:03
[2020-03-27 05:42] LABS: ALBUMIN 2.8 g/dL (3.4-5.0); ALBUMIN/GLOBULIN RATIO 0.8 (1.0-1.7); CALCIUM 8.4 mg/dL (8.5-10.1); CREATININE 0.9 mg/dL (0.6-1.0); GFR 61.5; TOTAL BILIRUBIN 0.3 mg/dL (0.2-1.0); TOTAL PROTEIN 6.3 g/dL (6.4-8.2)
[2020-03-27 07:30] VITALS: BP 96/63
--- NOTE | 2020-03-27 07:38 | EKG ---
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
[2020-03-27] MEDS ORDERED: BISACODYL 10 MG SUPP.RECT. RC PRN (09:30)
[2020-03-27] MEDS ORDERED: ACETAMINOPHEN 500 MG TABLET PO PRN (09:30)
[2020-03-27] MEDS ORDERED: ACET500T68 PO (09:31)
[2020-03-27] MEDS ORDERED: amLODIPine BESYLATE 10 MG TABLET PO SCH (10:00)
[2020-03-27] MEDS ORDERED: BACLOFEN 10 MG TABLET. PO SCH (10:00)
[2020-03-27] MEDS ORDERED: OLANZapine 5 MG TABLET PO SCH (10:00)
[2020-03-27] MEDS: GABAPENTIN 300 MG CAPSULE. PO SCH ×3 (10:12→22:07)
[2020-03-27] MEDS: HYDROcodone/APAP 5/325MG 1 TAB TABLET PO PRN ×3 (10:13→22:08)
[2020-03-27] MEDS: DOCUSATE SODIUM 100 MG CAPSULE. PO SCH ×2 (10:13→22:07)
[2020-03-27] MEDS: MULTIVITAMIN with MINERAL TABLET. PO SCH (10:13)
[2020-03-27] MEDS: POTASSIUM CHLORIDE 20 MEQ TABLET.ER. PO SCH (10:13)
[2020-03-27] MEDS: LEVOTHYROXINE 25 MCG TABLET. PO SCH (10:13)
--- NOTE | 2020-03-27 10:13 | PDOC1 ---
History and Physical Date of Admission Date of Admission DATE: 03/27/20 TIME: 10:12 Past Medical History Past Medical History Past Medical History Past Medical History: A-Fib, Bipolar, CHF, COPD, Depression, Diabetes-Type II, High Cholesterol, Pneumonia Additional Past Medical Histor: CH KNEE PAIN,MORBID OBESITY,PVD,POS,SEPSIS,KIDNEY FAIL, Past Surgical History: No Surgical History Additional Past Surgical Histo: UNKNOWN Smoking Status: Former Smoker Alcohol Use: None Drug Use: None FHX OBESITY Cardiovascular: AFIB, CAD, CHF, HTN, Hyperlipidemia Pulmonary: Pneumonia CENTRAL NERVOUS SYSTEM: Other GI: GERD Heme/Onc: No pertinent hx Hepatobiliary: No pertinent hx Psych: Anxiety, Bipolar, Depression Musculoskeletal: low back pain, Osteoarthritis Rheumatologic: No pertinent hx Infectious disease: No pertinent hx Renal/: No pertinent hx Endocrine: Diabetes Past Surgical History Past Surgical History: Other Family History Family History: Heart Disease Social History ALCOHOL: none Drugs: None Current Problem List Problem List Problems Medical Problems: (1) Altered mental status Status: Acute (2) Fever Status: Acute Current Medications Current Medications Current Medications Sodium Chloride 1,000 ml @ 1,000 mls/hr 1X ONCE IV Last administered on 03/27/20at 03:08; Start 03/27/20 at 02:45; Stop 03/27/20 at 03:44; Status DC Acetaminophen (Tylenol Supp) 650 mg 1X ONCE FL Last administered on 03/27/20at 03:28; Start 03/27/20 at 03:00; Stop 03/27/20 at 03:13; Status DC Ceftriaxone Sodium (Rocephin) 1 gm 1X ONCE IVP Last administered on 03/27/20at 03:27; Start 03/27/20 at 03:00; Stop 03/27/20 at 03:13; Status DC Diltiazem HCl (Cardizem Iv Push) 20 mg 1X ONCE IVP Last administered on 03/27/20at 04:29; Start 03/27/20 at 04:30; Stop 03/27/20 at 04:31; Status DC Acetaminophen (Tylenol) 650 mg PRN Q6HRS PRN PO MILD PAIN 1-3; Start 03/27/20 at 09:30 Alprazolam (Xanax) 0.5 mg PRN TID PRN PO ANXIETY; Start 6/30/20 at 09:30 Amlodipine Besylate (Norvasc) 10 mg DAILY PO ; Start 03/27/20 at 10:00 Aspirin (Aspirin Chewable) 81 mg DAILY PO ; Start 03/27/20 at 10:00 Baclofen (Lioresal) 10 mg TID PO ; Start 03/27/20 at 10:00 Bisacodyl (Dulcolax Supp) 10 mg PRN DAILY PRN RC CONSTIPATION; Start 03/27/20 at 09:30 Furosemide (Lasix) 40 mg DAILY PO ; Start 03/27/20 at 10:00 Gabapentin (Neurontin) 300 mg TID PO ; Start 03/27/20 at 10:00 Acetaminophen/ Hydrocodone Bitart (Lortab 5/325) 1 tab PRN Q4HRS PRN PO MODERATE - SEVERE PAIN; Start 03/27/20 at 09:30 Levothyroxine Sodium (Synthroid) 25 mcg DAILY06 PO ; Start 03/27/20 at 10:00 Nystatin (Nystop) 1 campos BID TP ; Start 03/27/20 at 10:00 Potassium Chloride (Klor-Con) 20 meq DAILYWBKFT PO ; Start 03/27/20 at 10:00 Docusate Sodium (Colace) 100 mg BID PO ; Start 03/27/20 at 10:00 Multivitamins (Thera M Plus) 1 tab DAILY PO ; Start 03/27/20 at 10:00 Olanzapine (ZyPREXA) 10 mg DAILY PO ; Start 03/27/20 at 10:00 Active Scripts Active Klor-Con M20 (Potassium Chloride) 20 Meq Tab.er.prt 20 Meq PO DAILYWBKFT 30 Days Synthroid (Levothyroxine Sodium) 25 Mcg Tablet 25 Mcg PO DAILY06 30 Days Reported Acetaminophen 500 Mg Tablet 650 Mg PO PRN Q6HRS PRN Furosemide 40 Mg Tablet 1 Tab PO DAILY Colace Clear (Docusate Sodium) 50 Mg Capsule 1 Cap PO BID 30 Days Gabapentin (Gabapentin) 100 Mg Capsule 300 Mg PO TID Baclofen 10 Mg Tablet 1 Tab PO TID [place] 5-325 Tablet (Acetaminophen/Hydrocodone Bitart) 1 Each Tablet 1-2 Tab PO Q4HRS PRN Glucagon Emergency Kit (Glucagon,Human Recombinant) 1 Mg Kit 1 Mg IM PRN Q15MIN PRN Biscolax (Bisacodyl) 10 Mg Supp.rect 10 Mg RC PRN DAILY PRN Alprazolam 0.5 Mg Tablet 1 Tab PO PRN TID PRN Nyamyc (Nystatin) 15 Gm Powder 15 Gm TP BID Thera-M (Multivits, W-,Other Min) 1 Each Tablet 1 Each PO DAILY Olanzapine 20 Mg Tablet 10 Mg PO DAILY Aspirin 81 Mg Tab.chew 1 Tab PO DAILY Amlodipine Besylate 10 Mg Tablet 10 Mg PO DAILY Allergies Allergies: Coded Allergies: No Known Medication Allergies (Verified Allergy, Unknown, 10/14/17) Vitals Vitals Vital Signs Date Time Temp Pulse Resp B/P (MAP) Pulse Ox O2 Delivery O2 Flow Rate FiO2 03/27/20 09:57 Nasal Cannula 3.0 03/27/20 09:39 102 96/63 03/27/20 07:30 97.9 20 96 97.9 Labs Labs Laboratory Tests Test 03/27/20 03:00 03/27/20 03:50 03/27/20 04:50 03/27/20 07:30 White Blood Count 10.8 x10^3/uL (4.0-11.0) Red Blood Count 4.18 x10^6/uL (3.50-5.40) Hemoglobin 12.7 g/dL (12.0-15.5) Hematocrit 36.8 % (36.0-47.0) Mean Corpuscular Volume 88 fL (79-100) Mean Corpuscular Hemoglobin 30 pg (25-35) Mean Corpuscular Hemoglobin Concent 34 g/dL (31-37) Red Cell Distribution Width 13.5 % (11.5-14.5) Platelet Count 135 x10^3/uL (140-400) Neutrophils (%) (Auto) 80 % (31-73) Lymphocytes (%) (Auto) 14 % (24-48) Monocytes (%) (Auto) 7 % (0-9) Eosinophils (%) (Auto) 0 % (0-3) Basophils (%) (Auto) 0 % (0-3) Neutrophils # (Auto) 8.6 x10^3/uL (1.8-7.7) Lymphocytes # (Auto) 1.5 x10^3/uL (1.0-4.8) Monocytes # (Auto) 0.7 x10^3/uL (0.0-1.1) Eosinophils # (Auto) 0.0 x10^3/uL (0.0-0.7) Basophils # (Auto) 0.0 x10^3/uL (0.0-0.2) Lactic Acid Level 3.8 mmol/L (0.4-2.0) 3.7 mmol/L (0.4-2.0) Urine Collection Type U cath Urine Color Yellow Urine Clarity Clear Urine pH 5.0 (<5.0-8.0) Urine Specific [place] 1.015 (1.000-1.030) Urine Protein Negative mg/dL (NEG-TRACE) Urine Glucose (UA) Negative mg/dL (NEG) Urine Ketones (Stick) Negative mg/dL (NEG) Urine Blood Negative (NEG) Urine Nitrite Negative (NEG) Urine Bilirubin Negative (NEG) Urine Urobilinogen Dipstick 0.2 mg/dL (0.2 mg/dL) Urine Leukocyte Esterase Negative (NEG) Urine RBC 0 /HPF (0-2) Urine WBC Rare /HPF (0-4) Urine Squamous Epithelial Cells Few /LPF Urine Bacteria 0 /HPF (0-FEW) Urine Mucus Mod /LPF Sodium Level 142 mmol/L (136-145) Potassium Level 4.0 mmol/L (3.5-5.1) Chloride Level 103 mmol/L (98-107) Carbon Dioxide Level 29 mmol/L (21-32) Anion Gap 10 (6-14) Blood Urea Nitrogen 24 mg/dL (7-20) Creatinine 0.9 mg/dL (0.6-1.0) Estimated GFR (Cockcroft-Gault) 61.5 BUN/Creatinine Ratio 27 (6-20) Glucose Level 133 mg/dL (70-99) Calcium Level 8.4 mg/dL (8.5-10.1) Total Bilirubin 0.3 mg/dL (0.2-1.0) Aspartate Amino Transf (AST/SGOT) 22 U/L (15-37) Alanine Aminotransferase (ALT/SGPT) 27 U/L (14-59) Alkaline Phosphatase 89 U/L (46-116) Total Protein 6.3 g/dL (6.4-8.2) Albumin 2.8 g/dL (3.4-5.0) Albumin/Globulin Ratio 0.8 (1.0-1.7) Troponin I Quantitative < 0.017 ng/mL (0.000-0.055) Test 03/27/20 07:50 Glucose (Fingerstick) 114 mg/dL (70-99) Laboratory Tests Test 03/27/20 03:00 03/27/20 03:50 03/27/20 04:50 03/27/20 07:30 White Blood Count 10.8 x10^3/uL (4.0-11.0) Red Blood Count 4.18 x10^6/uL (3.50-5.40) Hemoglobin 12.7 g/dL (12.0-15.5) Hematocrit 36.8 % (36.0-47.0) Mean Corpuscular Volume 88 fL (79-100) Mean Corpuscular Hemoglobin 30 pg (25-35) Mean Corpuscular Hemoglobin Concent 34 g/dL (31-37) Red Cell Distribution Width 13.5 % (11.5-14.5) Platelet Count 135 x10^3/uL (140-400) Neutrophils (%) (Auto) 80 % (31-73) Lymphocytes (%) (Auto) 14 % (24-48) Monocytes (%) (Auto) 7 % (0-9) Eosinophils (%) (Auto) 0 % (0-3) Basophils (%) (Auto) 0 % (0-3) Neutrophils # (Auto) 8.6 x10^3/uL (1.8-7.7) Lymphocytes # (Auto) 1.5 x10^3/uL (1.0-4.8) Monocytes # (Auto) 0.7 x10^3/uL (0.0-1.1) Eosinophils # (Auto) 0.0 x10^3/uL (0.0-0.7) Basophils # (Auto) 0.0 x10^3/uL (0.0-0.2) Lactic Acid Level 3.8 mmol/L (0.4-2.0) 3.7 mmol/L (0.4-2.0) Urine Collection Type U cath Urine Color Yellow Urine Clarity Clear Urine pH 5.0 (<5.0-8.0) Urine Specific [place] 1.015 (1.000-1.030) Urine Protein Negative mg/dL (NEG-TRACE) Urine Glucose (UA) Negative mg/dL (NEG) Urine Ketones (Stick) Negative mg/dL (NEG) Urine Blood Negative (NEG) Urine Nitrite Negative (NEG) Urine Bilirubin Negative (NEG) Urine Urobilinogen Dipstick 0.2 mg/dL (0.2 mg/dL) Urine Leukocyte Esterase Negative (NEG) Urine RBC 0 /HPF (0-2) Urine WBC Rare /HPF (0-4) Urine Squamous Epithelial Cells Few /LPF Urine Bacteria 0 /HPF (0-FEW) Urine Mucus Mod /LPF Sodium Level 142 mmol/L (136-145) Potassium Level 4.0 mmol/L (3.5-5.1) Chloride Level 103 mmol/L (98-107) Carbon Dioxide Level 29 mmol/L (21-32) Anion Gap 10 (6-14) Blood Urea Nitrogen 24 mg/dL (7-20) Creatinine 0.9 mg/dL (0.6-1.0) Estimated GFR (Cockcroft-Gault) 61.5 BUN/Creatinine Ratio 27 (6-20) Glucose Level 133 mg/dL (70-99) Calcium Level 8.4 mg/dL (8.5-10.1) Total Bilirubin 0.3 mg/dL (0.2-1.0) Aspartate Amino Transf (AST/SGOT) 22 U/L (15-37) Alanine Aminotransferase (ALT/SGPT) 27 U/L (14-59) Alkaline Phosphatase 89 U/L (46-116) Total Protein 6.3 g/dL (6.4-8.2) Albumin 2.8 g/dL (3.4-5.0) Albumin/Globulin Ratio 0.8 (1.0-1.7) Troponin I Quantitative < 0.017 ng/mL (0.000-0.055) Test 03/27/20 07:50 Glucose (Fingerstick) 114 mg/dL (70-99) Images Images REASON: altered mental status fever PROCEDURE: CHEST AP ONLY AP chest. HISTORY: Altered mental status, fever AP view was taken of the chest. Heart is enlarged. Patient's taken a poor inspiration. There is no effusion. There are no confluent infiltrates. IMPRESSION: 1. Poor inspiration. 2. No definite infiltrates. Electronically signed by: Clifton Ashley MD (03/27/2020 3:44 AM) [id number] DICTATED and SIGNED BY: CLIFTON ASHLEY MD VTE Prophylaxis Ordered VTE Prophylaxis Devices: No VTE Pharmacological Prophylaxi: Yes ANURAG LOPEZ MD Mar 27, 2020 10:13
[2020-03-27] MEDS: NYSTATIN TOPICAL POWDER 15GM BOTTLE. TP SCH ×2 (10:14→22:08)
[2020-03-27] MEDS: FUROSEMIDE 40 MG TABLET. PO SCH (10:14)
[2020-03-27] MEDS: ASPIRIN CHEWABLE 81 MG TABLET. PO SCH (10:14)
[2020-03-27 10:24] VITALS: BP 98/59
[2020-03-27] MEDS: IV NORMAL SALINE 1000ML BAG 1,000 ML IV SCH ×2 (11:28→22:06)
[2020-03-27] MEDS: PIPERACILLIN/TAZOBACTAM 3.375 GM in IV NORMAL SALINE 50ML 50 ML IV SCH ×2 (11:29→17:49)
--- NOTE | 2020-03-27 11:45 | NUR ---
SS following for discharge planning. SS reviewed pt chart and discussed with pt RN. Pt is LTC resident from [facility], ; fax [phone]. SS contacted [facility] and verified pt's placement. Pt is currently requiring oxygen and is COVID19 pending. SS will continue to follow for discharge planning.
--- NOTE | 2020-03-27 11:58 | HP ---
ADMIT DATE: 03/27/2020 HISTORY OF PRESENT ILLNESS: The patient is a 74-year-old female patient, resident at [facility] in [place], who was noted by nursing staff last night to be febrile with temperature up to 102.4. She was also extremely confused and lethargic and was brought to the Emergency Room of [facility]. On arrival, her temperature was up to 102.5. She was also tachycardic. In fact, she was in atrial fibrillation with rapid ventricular response and received a bolus of Cardizem and although there was no obvious source of infection, last time she was admitted with infected right ear and right side of the face and neck, although we have not really grown any organisms from her urine or blood cultures. The patient herself stated that she was actually very confused and only became aware that she is in the hospital this morning after she was admitted to the hospital. She was extensively investigated in the Emergency Room. Her white cell count was normal at 10,800. Her chemistry was unremarkable; however, her lactic acid was high at 3.8. Urinalysis was unremarkable and in fact was negative for nitrite and leukocyte esterase and no rbc's, very rare wbc's and no bacteria and her chest x-ray showed poor inspiration, but no definite infiltrate. Basically, the patient was admitted with altered mental status and fever with unknown source of infection. She apparently has had blood cultures as well as urine culture and sensitivity, was given a gram of Rocephin. She also received IV fluid and admitted and continued on all her medications. PAST MEDICAL HISTORY: Significant for: 1. Anxiety and depression. 2. Type 2 diabetes mellitus. 3. Hypertension. 4. Hyperlipidemia. 5. Morbid obesity, probably obstructive sleep apnea. 6. Severe osteoarthritis of both knee joints and recurrent bilateral lower extremity edema. She also has history of methicillin-sensitive Staphylococcus aureus bacteremia and group A Streptococcus bacteremia, chronic diastolic congestive heart failure, paroxysmal atrial fibrillation for which she was on metoprolol and Coumadin, both were discontinued. PAST SURGICAL HISTORY: Unremarkable. FAMILY HISTORY: Noncontributory. SOCIAL HISTORY: She is a resident at [facility]. She has a son and a daughter. She does not smoke, drink alcohol or use recreational drugs. ALLERGIES: She has no known drug allergies. MEDICATIONS: She is currently on following medications: She is on baclofen 10 mg 3 times a day, amlodipine besylate 10 mg once a day, aspirin 81 mg once a day, hydrocodone/APAP 5/325 one to two tablets every 4 hours, Tylenol 650 mg every 6 hours, gabapentin 300 mg 3 times a day, olanzapine 10 mg at bedtime, alprazolam 0.5 mg 3 times a day as needed, potassium chloride 20 mEq daily with breakfast, furosemide 40 mg once a day, Dulcolax 10 mg rectally daily p.r.n. for constipation, Colace 100 mg twice a day. She is on glucagon 1 mg intramuscular as needed for hypoglycemia, levothyroxine sodium 25 mcg once a day, nystatin powder applied topically twice a day, and multivitamin 1 tablet once a day. REVIEW OF SYSTEMS: As per history of present illness. PHYSICAL EXAMINATION: GENERAL: On arrival to the Emergency Room, the patient looked pale, no jaundice, cyanosis or thyromegaly. No jugular venous distention. No lower limb edema. VITAL SIGNS: Her heart rate was 129 and irregularly irregular, blood pressure was 136/76, temperature was 102.5, respiratory rate was 29, oxygen saturation was 94% on 2 liters oxygen by nasal cannula. HEAD, EYES, EARS, NOSE AND THROAT: Showed normocephalic, atraumatic. Her right ear seems to have erythema and cellulitis has subsided. NECK: Supple. CARDIAC: Normal first and second heart sounds. No gallop or murmur. CHEST: Clear to auscultation. No crepitation or rhonchi. ABDOMEN: Distended, soft, nontender. NEUROLOGIC: When I saw her, she was more awake, alert, although herself stated that she cannot remember [facility]. She is now more awake, alert, responding appropriately. All other cranial nerves are intact. She moves extremities without difficulty. LABORATORY DATA: Her lab work showed a white cell count of 10,800, hemoglobin 12.7, hematocrit 36.8, MCV 88 and platelet count of 135,000 with normal manual differential. Her chemistry showed that her serum sodium was 142, potassium 4, chloride 103, bicarbonate 29, anion gap of 10, BUN 24, creatinine 0.9, estimated GFR was 61 mL per minute. Her glucose was 133, lactic acid was 3.8, calcium was 8.4. Total bilirubin, AST, ALT, alkaline phosphatase were normal. Total protein was 6.3, albumin was 2.8. Urinalysis was essentially unremarkable. Her chest x-ray showed that she has poor inspiratory effort, but no definite infiltrate. ASSESSMENT: In summary, this is a 74-year-old female patient who was admitted with altered mental status as well as fever and lactic acidosis. She also was in atrial fibrillation with rapid ventricular response, treated with bolus of Cardizem. PLAN: I will hold her baclofen, amlodipine, hydrocodone. I will also broaden the antibiotic coverage and consult the Infectious Disease. She probably might require an echocardiogram and perhaps BEATRIZ as we have no obvious source of infection, she did have history of methicillin-sensitive Staphylococcus aureus bacteremia and group A streptococcus bacteremia. JOSEPH XIONG MD DR: SINDI/mina JOB#: [id number] / [id number]
--- NOTE | 2020-03-27 12:31 | CONS ---
DATE OF CONSULTATION: 03/27/2020 REFERRING PHYSICIAN: Dr. Andino. REASON FOR CONSULTATION: Fever of unknown source. HISTORY OF PRESENT ILLNESS: A 75-year-old female recently discharged from [facility] with a right neck and cheek cellulitis a couple of weeks ago, a resident at [facility] in [place], was found to have a fever of 102.4 with confusion and lethargy, was brought to the ER, temperature here was 102.5. The patient was having AFib with rapid RVR, received a bolus of Cardizem. White count was normal at 10.8, platelets of 135, lactate of 3.7. Troponin was normal. Creatinine was normal. UA was negative. COVID-19 has been sent out. The patient was started on empiric Zosyn and Zyvox. ID consult has been requested for antibiotic management. The patient is currently alert, but states feels tired. Denies any headache. Denies any cheek or neck pain. Denies any ear pain. Denies any nausea, vomiting, diarrhea, abdominal pain. Blakely was placed here this admission. Denies any pain in her legs. PAST MEDICAL HISTORY: AFib, bipolar, CHF, COPD, morbid obesity, depression, diabetes, chronic knee pain, PVD, history of streptococcal bacteremia, chronic venous stasis, lymphedema, history of lower extremity cellulitis, peripheral vascular disease, chronic knee pain, history of recent right cheek and neck cellulitis, no abscess, completed treatment. FAMILY HISTORY: As per HPI. FAMILY HISTORY: As per HPI. SOCIAL HISTORY: No smoking, ETOH, or illicit drug use. [facility] resident, bedbound. CURRENT MEDICATIONS: Zosyn, Zyvox. Other medications reviewed in medication list. ALLERGIES: No known drug allergies. REVIEW OF SYSTEMS: Negative except for above in HPI. PHYSICAL EXAMINATION: VITAL SIGNS: Temperature 98.7, T-max 102, pulse 89, respiratory rate 20, blood pressure 98/59, oxygen saturation 99% on 2 liters by nasal cannula. GENERAL: Alert, oriented x 3. Lethargic tired appearing female, lying in bed comfortably, in no acute distress. Able to answer most of the questions. HEENT: Normocephalic, atraumatic, anicteric. Right ear erythema and cellulitis has resolved. NECK: Supple, no JVD, no lymphadenopathy. LUNGS: Clear bilaterally. HEART: S1, S2, no murmurs. ABDOMEN: Soft, obese. Bowel sounds present, nontender, nondistended. NEUROLOGIC: Alert and oriented x 3, grossly nonfocal. PSYCHIATRIC: Cooperative, appropriate mood and affect. EXTREMITIES: Chronic venous stasis with chronic lymphedema. Mild redness present over the left lower extremity. Skin abrasions over the right lower extremity. No surrounding abscess, fluctuance noted. No other skin lesions noted. PIV looks okay. LABORATORY DATA: WBC 10.8, hemoglobin 12.7, hematocrit 36.8, platelets of 135. Sodium 142, potassium 4.0, chloride 103, bicarbonate 29, BUN 24, creatinine 0.9, glucose 133. Lactate 3.7, was 3.8, calcium 8.4, albumin 2.7. Troponin normal. COVID-19 pending. Blood culture pending. IMAGING: Chest x-ray shows poor inspiration. No definite infiltrate. IMPRESSION: 1. Fever, source unclear, could be left lower extremity cellulitis. 2. Altered mental status, likely metabolic, improving. 3. Fever. 4. Lactic acidosis. 5. Atrial fibrillation with rapid ventricular response. 6. History of group B strep sepsis. 7. Bipolar disorder with depression. 8. History of congestive heart failure. 9. Degenerative joint disease. 10. Diabetes. 11. Chronic knee pain. 12. Morbid obesity. 13. Peripheral vascular disease. 14. Chronic venous stasis and lymphedema. RECOMMENDATIONS: 1. Continue Zyvox and Zosyn. 2. Follow up blood cultures. 3. Follow up COVID-19. 4. Monitor labs and cultures. 5. Maintain aspiration precaution. 6. Continue supportive care. 7. Discussed with nursing. Thank you, Dr. Andino, for consulting Infectious Disease to participate in this patient's care. If you have any questions, do not hesitate to contact me. BRANDON BARNARD MD DR: MAYNOR/mina JOB#: [id number] / [id number] KELLIE
[2020-03-27 14:57] VITALS: BP 98/55
--- NOTE | 2020-03-27 15:36 | NUR ---
Wound Care: Photograph consult done, pt is under Covid investigation. Recommendations to apply nystatin powder to R flank area and A&D ointment to buttocks.WC will follow up tomorrow 03/28. LEO Leiva notified of POC.
--- NOTE | 2020-03-27 15:59 | NUR ---
Patient transferred to room 673 at 1550 from room 200. COVID pending. Patient alert & resting in bed. Will continue to monitor.
[2020-03-27 16:00] VITALS: BP 109/52
--- NOTE | 2020-03-27 18:43 | NUR ---
RN took in one hydrocodone tab into room thinking patient would want it, however she refused it. Wasted the pill in the med room with LEO Valdes in the jug since it had already been exposed in the pending covid room. Waste entered wrong in [employer] but unable to fix.
[2020-03-27 19:00] VITALS: BP 101/51
[2020-03-27] MEDS ORDERED: DIGOXIN IV 500 MCG/2 ML AMPUL. IV ONE (19:00)
--- NOTE | 2020-03-27 19:40 | NUR ---
Pt in bed assessment completed vss poc explained pt c/o pain all over will medicate pt, pt alert and oriented x3 forgetful pt reoriented to surroundings call light in reach will resume care and continue to monitor pt.
[2020-03-27] MEDS: OLANZapine 5 MG TABLET PO SCH (22:07)
[2020-03-27] MEDS: ALPRAZolam 0.5 MG TABLET PO PRN (22:07)
[2020-03-27 23:00] VITALS: BP 129/52
[2020-03-28] MEDS: PIPERACILLIN/TAZOBACTAM 3.375 GM in IV NORMAL SALINE 50ML 50 ML IV SCH ×5 (00:24→23:06)
[2020-03-28 02:44] VITALS: BP 117/49
--- NOTE | 2020-03-28 03:00 | NUR ---
Change of care note pt in bed resting report given to Darlene Celaya.
[2020-03-28 05:05] LABS: HEMATOCRIT 28.7 % (36.0-47.0); HEMOGLOBIN 9.8 g/dL (12.0-15.5); RED BLOOD COUNT 3.22 x10^6/uL (3.50-5.40); RED CELL DISTRIBUTION WIDTH 13.4 % (11.5-14.5); WHITE BLOOD COUNT 7.5 x10^3/uL (4.0-11.0)
[2020-03-28] MEDS: LEVOTHYROXINE 25 MCG TABLET. PO SCH (05:31)
[2020-03-28 06:20] LABS: ALBUMIN 2.2 g/dL (3.4-5.0); ALBUMIN/GLOBULIN RATIO 0.6 (1.0-1.7); CALCIUM 8.4 mg/dL (8.5-10.1); CREATININE 1.1 mg/dL (0.6-1.0); GFR 48.8; POTASSIUM 3.5 mmol/L (3.5-5.1); TOTAL BILIRUBIN 0.3 mg/dL (0.2-1.0)
[2020-03-28] MEDS: IV NORMAL SALINE 1000ML BAG 1,000 ML IV SCH ×2 (06:37→16:50)
[2020-03-28 07:30] VITALS: BP 96/55
[2020-03-28] MEDS: NYSTATIN TOPICAL POWDER 15GM BOTTLE. TP SCH ×2 (09:00→20:56)
[2020-03-28] MEDS ORDERED: METOPROLOL TARTRATE 5 MG/5 ML VIAL. IVP PRN (09:45)
--- NOTE | 2020-03-28 09:47 | PDOC2 ---
ROGER MARTIN SENIOR ADVISOR 03/28/20 0947: CARDIAC CONSULT DATE OF CONSULT Date of Consult DATE: 03/28/20 TIME: 09:30 REASON FOR CONSULT Reason for Consult: AFIB RVR REFERRING PHYSICIAN Referring Physician: Sina SOURCE Source: Chart review HISTORY OF PRESENT ILLNESS HISTORY OF PRESENT ILLNESS This is a pleasant 74 yo female admitted for complains of fever. This started Thursday with no chest pain or sensation of palpitations. She is bed bound. No recent falls or injury. PAST MEDICAL HISTORY Past Medical History Cardiovascular: AFIB, CHF, HTN, Hyperlipidemia, Other (PAD), venous stasis Pulmonary: No pertinent hx CENTRAL NERVOUS SYSTEM: Other (no pertinent positives) GI: GERD Heme/Onc: No pertinent hx Hepatobiliary: No pertinent hx Psych: Anxiety, Depression Musculoskeletal: Osteoarthritis Rheumatologic: No pertinent hx Infectious disease: right neck cellulitis ENT: No pertinent hx Renal/: No pertinent hx Endocrine: Diabetes Dermatology: No pertinent hx PAST SURGICAL HISTORY Past Surgical History: No pertinent history FAMILY HISTORY Family History: Heart Disease SOCIAL HISTORY Smoke: No ALCOHOL: none Drugs: None CURRENT MEDICATIONS CURRENT MEDICATIONS Current Medications Medications (Trade) Dose Ordered Sig/Macey Route PRN Reason Start Time Stop Time Status Last Admin Dose Admin Aspirin (Aspirin Chewable) 81 mg DAILY PO 03/27/20 10:00 03/27/20 10:14 Baclofen (Lioresal) 10 mg TID PO 03/27/20 10:00 03/27/20 10:50 DC 03/27/20 10:14 Furosemide (Lasix) 40 mg DAILY PO 03/27/20 10:00 03/27/20 10:14 Gabapentin (Neurontin) 300 mg TID PO 03/27/20 10:00 03/27/20 22:07 Levothyroxine Sodium (Synthroid) 25 mcg DAILY06 PO 03/27/20 10:00 03/28/20 05:31 Nystatin (Nystop) 1 campos BID TP 03/27/20 10:00 03/27/20 22:08 Potassium Chloride (Klor-Con) 20 meq DAILYWBKFT PO 03/27/20 10:00 03/27/20 10:13 Docusate Sodium (Colace) 100 mg BID PO 03/27/20 10:00 03/27/20 22:07 Multivitamins (Thera M Plus) 1 tab DAILY PO 03/27/20 10:00 03/27/20 10:13 Olanzapine (ZyPREXA) 10 mg DAILY PO 03/27/20 10:00 03/27/20 10:51 DC 03/27/20 10:18 Olanzapine (ZyPREXA) 10 mg QHS PO 03/27/20 21:00 03/27/20 22:07 Piperacillin Sod/ Tazobactam Sod 3.375 gm/Sodium Chloride 50 ml @ 100 mls/hr Q6HRS IV 03/27/20 12:00 03/28/20 05:31 Linezolid/Dextrose 300 ml @ 300 mls/hr Q12HR IV 03/27/20 11:00 03/27/20 22:06 Sodium Chloride 1,000 ml @ 100 mls/hr Q10H IV 03/27/20 11:00 03/27/20 22:06 Digoxin (Lanoxin) 500 mcg 1X ONCE IV 03/27/20 19:00 03/27/20 19:01 DC 03/27/20 19:29 ALLERGIES ALLERGIES: Coded Allergies: No Known Medication Allergies (Verified Allergy, Unknown, 10/14/17) ROS Review of System 14 point ROS evlauated with pertinent positives noted per HPI PHYSICAL EXAM General: Alert, Oriented X3, Cooperative, No acute distress HEENT: Atraumatic, Mucous membr. moist/pink Lungs: Other (CXR reviewed) Abdomen: Soft Extremities: No cyanosis Skin: No breakdown Neuro: Normal speech, Sensation intact Psych/Mental Status: Mental status NL MUSCULOSKELETAL: No joint tenderness VITALS/I&O VITALS/I&O: Vital Signs Date Time Temp Pulse Resp B/P (MAP) Pulse Ox O2 Delivery O2 Flow Rate FiO2 03/28/20 02:44 99.3 73 18 117/49 (71) 93 Room Air 99.3 03/27/20 22:08 2.0 I & O 03/27/20 03/27/20 03/28/20 15:00 23:00 07:00 Intake Total 800 ml 270 ml Output Total 1050 ml 425 ml Balance 800 ml -1050 ml -155 ml LABS Lab: Laboratory Tests Test 03/27/20 12:11 03/27/20 23:15 03/28/20 03:48 Glucose (Fingerstick) 99 mg/dL (70-99) 169 mg/dL (70-99) H White Blood Count 7.5 x10^3/uL (4.0-11.0) Red Blood Count 3.22 x10^6/uL (3.50-5.40) L Hemoglobin 9.8 g/dL (12.0-15.5) L Hematocrit 28.7 % (36.0-47.0) L Mean Corpuscular Volume 89 fL (79-100) Mean Corpuscular Hemoglobin 30 pg (25-35) Mean Corpuscular Hemoglobin Concent 34 g/dL (31-37) Red Cell Distribution Width 13.4 % (11.5-14.5) Platelet Count 98 x10^3/uL (140-400) L Sodium Level 140 mmol/L (136-145) Potassium Level 3.5 mmol/L (3.5-5.1) Chloride Level 104 mmol/L (98-107) Carbon Dioxide Level 30 mmol/L (21-32) Anion Gap 6 (6-14) Blood Urea Nitrogen 21 mg/dL (7-20) H Creatinine 1.1 mg/dL (0.6-1.0) H Estimated GFR (Cockcroft-Gault) 48.8 BUN/Creatinine Ratio 19 (6-20) Glucose Level 99 mg/dL (70-99) Calcium Level 8.4 mg/dL (8.5-10.1) L Total Bilirubin 0.3 mg/dL (0.2-1.0) Aspartate Amino Transferase (AST) 18 U/L (15-37) Alanine Aminotransferase (ALT) 19 U/L (14-59) Alkaline Phosphatase 73 U/L (46-116) Total Protein 6.0 g/dL (6.4-8.2) L Albumin 2.2 g/dL (3.4-5.0) L Albumin/Globulin Ratio 0.6 (1.0-1.7) L Laboratory Tests 03/28/20 03:48 Laboratory Tests 03/28/20 03:48 ECHOCARDIOGRAM ECHOCARDIOGRAM <Conclusion> The left ventricular systolic function is low normal. The Ejection Fraction is 50%. There is slight global hypokinesis of the left ventricle. DATE: 12/13/18 1524 ASSESSMENT/PLAN ASSESSMENT/PLAN 1. FUO: Tmax 102.5, ID following. recent right neck abscess 2. AFIB RVR: appears to be paroxysmal with prior bradycardia episodes from recent admission in 03/04 3. Chronic diastolic CHF: suspect underlying DAMIEN. EF 50% with mild global LV hypokinesis 4. Chronic LE lymphedema 5. Hypertension; controlled 6. HLP 7. Diabetes, II; as per PCP 8. Debility with morbid obesity 9. Hypothyroidism: on replacement Recommendations 1. She was given digoxin and diltiazem. Will monitor rhythm and will likely p lace on low dose metoprolol if no significant bradycardia. Continue ASA for now for stroke prevention, from previous patient/family declines OAC due to weakness/debility and multiple recent falls 2. Would consider BEATRIZ if ID deems it necessary 3. Supportive care 4. Await covid test 5. Monitor rhythm TJ CRUZ MD 03/28/20 1616: CARDIAC CONSULT ASSESSMENT/PLAN ASSESSMENT/PLAN Patient seen and examined. Agree with CONSUMER RELATIONS SPECIALIST's assessment and plan. Atrial fibrillation rate better controlled. LVEF 50%, well compensated. Continue work-up for fever of uncertain etiology per ID team. COVID test pending. Thank you for consultation. ROGER MARTIN APRN Mar 28, 2020 09:47 TJ CRUZ MD Mar 28, 2020 16:16
[2020-03-28] MEDS: GABAPENTIN 300 MG CAPSULE. PO SCH ×3 (09:51→20:56)
[2020-03-28] MEDS: MULTIVITAMIN with MINERAL TABLET. PO SCH (09:51)
[2020-03-28] MEDS: FUROSEMIDE 40 MG TABLET. PO SCH (09:51)
[2020-03-28] MEDS: ASPIRIN CHEWABLE 81 MG TABLET. PO SCH (09:52)
[2020-03-28] MEDS: DOCUSATE SODIUM 100 MG CAPSULE. PO SCH ×2 (09:52→20:56)
[2020-03-28] MEDS: POTASSIUM CHLORIDE 20 MEQ TABLET.ER. PO SCH (09:52)
--- NOTE | 2020-03-28 10:10 | PDOC ---
Infectious Disease Note Subjective: Subjective Patient feels little better Still feels very tired No fevers in the last 24-hour No other complaints Vital Signs: Vital Signs Vital Signs Date Time Temp Pulse Resp B/P (MAP) Pulse Ox O2 Delivery O2 Flow Rate FiO2 03/28/20 02:44 99.3 73 18 117/49 (71) 93 Room Air 99.3 03/27/20 22:08 2.0 Physical Exam: PHYSICAL EXAM GENERAL: Alert, oriented x 3. Lethargic tired appearing female, lying in bed comfortably, in no acute distress. Able to answer most of the questions. HEENT: Normocephalic, atraumatic, anicteric. Right ear erythema and cellulitis has resolved. NECK: Supple, no JVD, no lymphadenopathy. LUNGS: Clear bilaterally. HEART: S1, S2, no murmurs. ABDOMEN: Soft, obese. Bowel sounds present, nontender, nondistended. NEUROLOGIC: Alert and oriented x 3, grossly nonfocal. PSYCHIATRIC: Cooperative, appropriate mood and affect. EXTREMITIES: Chronic venous stasis with chronic lymphedema. Mild redness present over the left lower extremity. Skin abrasions over the right lower extremity. No surrounding abscess, fluctuance noted. No other skin lesions noted. PIV looks okay. Medications: Inpatient Meds: Current Medications Medications (Trade) Dose Ordered Sig/[facility] Start Time Stop Time Status Last Admin Dose Admin Acetaminophen (Tylenol Supp) 650 mg 1X ONCE 03/27/20 03:00 03/27/20 03:13 DC 03/27/20 03:28 650 MG Acetaminophen (Tylenol) 650 mg PRN Q6HRS PRN 03/27/20 09:30 Acetaminophen/ Hydrocodone Bitart (Lortab 5/325) 1 tab PRN Q4HRS PRN 03/27/20 09:30 03/27/20 22:08 1 TAB Alprazolam (Xanax) 0.5 mg PRN TID PRN 03/27/20 09:30 03/27/20 22:07 0.5 MG Amlodipine Besylate (Norvasc) 10 mg DAILY 03/27/20 10:00 03/27/20 10:51 DC Aspirin (Aspirin Chewable) 81 mg DAILY 03/27/20 10:00 03/28/20 09:52 81 MG Baclofen (Lioresal) 10 mg TID 03/27/20 10:00 03/27/20 10:50 DC 03/27/20 10:14 10 MG Bisacodyl (Dulcolax Supp) 10 mg PRN DAILY PRN 03/27/20 09:30 Ceftriaxone Sodium (Rocephin) 1 gm 1X ONCE 03/27/20 03:00 03/27/20 03:13 DC 03/27/20 03:27 1 GM Digoxin (Lanoxin) 500 mcg 1X ONCE 03/27/20 19:00 03/27/20 19:01 DC 03/27/20 19:29 500 MCG Diltiazem HCl (Cardizem Iv Push) 20 mg 1X ONCE 03/27/20 04:30 03/27/20 04:31 DC 03/27/20 04:29 20 MG Docusate Sodium (Colace) 100 mg BID 03/27/20 10:00 03/28/20 09:52 100 MG Furosemide (Lasix) 40 mg DAILY 03/27/20 10:00 03/28/20 09:51 40 MG Gabapentin (Neurontin) 300 mg TID 03/27/20 10:00 03/28/20 09:51 300 MG Levothyroxine Sodium (Synthroid) 25 mcg DAILY06 03/27/20 10:00 03/28/20 05:31 25 MCG Linezolid/Dextrose 300 ml @ 300 mls/hr Q12HR 03/27/20 11:00 03/28/20 09:52 300 MLS/HR Metoprolol Tartrate (Lopressor Vial) 5 mg PRN Q6HRS PRN 03/28/20 09:45 Multivitamins (Thera M Plus) 1 tab DAILY 03/27/20 10:00 03/28/20 09:51 1 TAB Nystatin (Nystop) 1 campos BID 03/27/20 10:00 03/28/20 09:00 1 CAMPOS Olanzapine (ZyPREXA) 10 mg QHS 03/27/20 21:00 03/27/20 22:07 10 MG Piperacillin Sod/ Tazobactam Sod 3.375 gm/Sodium Chloride 50 ml @ 100 mls/hr Q6HRS 03/27/20 12:00 03/28/20 05:31 100 MLS/HR Potassium Chloride (Klor-Con) 20 meq DAILYWBKFT 03/27/20 10:00 03/28/20 09:52 20 MEQ Sodium Chloride 1,000 ml @ 100 mls/hr Q10H 03/27/20 11:00 03/27/20 22:06 100 MLS/HR Vitamin A/Vitamin D (Vitamin A & D Ointment) 1 campos PRN Q1HR PRN 03/28/20 08:00 Labs: Lab Laboratory Tests Test 03/27/20 12:11 03/27/20 23:15 03/28/20 03:48 03/28/20 08:07 Glucose (Fingerstick) 99 mg/dL (70-99) 169 mg/dL (70-99) 83 mg/dL (70-99) White Blood Count 7.5 x10^3/uL (4.0-11.0) Red Blood Count 3.22 x10^6/uL (3.50-5.40) Hemoglobin 9.8 g/dL (12.0-15.5) Hematocrit 28.7 % (36.0-47.0) Mean Corpuscular Volume 89 fL (79-100) Mean Corpuscular Hemoglobin 30 pg (25-35) Mean Corpuscular Hemoglobin Concent 34 g/dL (31-37) Red Cell Distribution Width 13.4 % (11.5-14.5) Platelet Count 98 x10^3/uL (140-400) Sodium Level 140 mmol/L (136-145) Potassium Level 3.5 mmol/L (3.5-5.1) Chloride Level 104 mmol/L (98-107) Carbon Dioxide Level 30 mmol/L (21-32) Anion Gap 6 (6-14) Blood Urea Nitrogen 21 mg/dL (7-20) Creatinine 1.1 mg/dL (0.6-1.0) Estimated GFR (Cockcroft-Gault) 48.8 BUN/Creatinine Ratio 19 (6-20) Glucose Level 99 mg/dL (70-99) Calcium Level 8.4 mg/dL (8.5-10.1) Total Bilirubin 0.3 mg/dL (0.2-1.0) Aspartate Amino Transf (AST/SGOT) 18 U/L (15-37) Alanine Aminotransferase (ALT/SGPT) 19 U/L (14-59) Alkaline Phosphatase 73 U/L (46-116) Total Protein 6.0 g/dL (6.4-8.2) Albumin 2.2 g/dL (3.4-5.0) Albumin/Globulin Ratio 0.6 (1.0-1.7) Objective: Assessment: 1. Fever, source unclear, could be left lower extremity cellulitis. 2. Altered mental status, likely metabolic, improving. 3. Left lower extremity cellulitis with underlying chronic lymphedema 4. Lactic acidosis. 5. Atrial fibrillation with rapid ventricular response. 6. History of group B strep sepsis. 7. Bipolar disorder with depression. 8. History of congestive heart failure. 9. Degenerative joint disease. 10. Diabetes. 11. Chronic knee pain. 12. Morbid obesity. 13. Peripheral vascular disease. 14. Chronic venous stasis and lymphedema. Plan: Plan of Care 1. Continue Zyvox and Zosyn. 2. Follow up blood cultures. 3. Follow up COVID-19. 4. Monitor labs and cultures. 5. Maintain aspiration precaution. 6. Continue supportive care. 7. Discussed with nursing. BRANDON BARNARD MD Mar 28, 2020 10:10
[2020-03-28] MEDS: VITS A & D/LANOLIN TOPICAL OINTMENT 42GM TUBE. TP PRN (10:22)
--- NOTE | 2020-03-28 11:33 | PN ---
DATE: 03/28/2020 SUBJECTIVE: The patient is resting, slightly propped up in bed, no apparent distress. She is awake, alert, very frustrated, has been in and out the hospital multiple times with infection. The nursing staff did not voice any concerns that she has an uneventful night, though she was extremely lethargic last night. She is awake and alert this morning, she had had breakfast. Her temperature is down to 99.3. PHYSICAL EXAMINATION: GENERAL: When I examined her, she looked pale. No jaundice, cyanosis or thyromegaly. No jugular venous distention or limb edema. VITAL SIGNS: Her heart rate was 73, blood pressure was 117/49, temperature 99.3, respiratory rate was 18 and oxygen saturation was 93% on 2 liters of oxygen. HEAD, EYES, EARS, NOSE AND THROAT: Showed normocephalic, atraumatic. The redness and erythema on the right ear and right side of the neck is not there anymore. NECK: Supple. HEART: Showed normal first and second heart sounds. No gallop or murmur. CHEST: Clear to auscultation. No crepitation or rhonchi. ABDOMEN: Distended, soft, nontender. NEUROLOGIC: She is definitely more awake, alert, responding appropriately. All cranial nerves are intact. She moves upper extremities to greater extent. Lower extremities, mostly bedbound. She has faint erythema on the outer aspect of the left lower extremity. Her intake was 1000. No output was recorded. LABORATORY WORK: This morning showed her white cell count is down to 7500, hemoglobin 9.8, hematocrit 28.7, MCV 89 and platelet count 98,000. Her chemistry showed a serum sodium of 140, potassium 3.5, chloride 104, bicarbonate 30, anion gap of 6, BUN 21, creatinine 1.1. Her estimated GFR was 48 mL per minute. Her glucose was 99, calcium was 8.4. Total bilirubin, AST, ALT, alkaline phosphatase were normal. Total protein was 6 and her serum albumin is only 2.2. So far, her blood cultures showed no growth after one day Chest x-ray was unremarkable. ASSESSMENT: Altered mental status, likely metabolic acidosis, resolved, fever without clear-cut source of infection, mild erythema on the outer aspect of left lower extremity with chronic lymphedema, atrial fibrillation with rapid ventricular response, history of group B Streptococcal infection, chronic diastolic congestive heart failure; type 2 diabetes mellitus, severe osteoarthritis of both knee joints, morbid obesity, peripheral vascular disease. PLAN: To continue IV antibiotic in the form of Zyvox and Zosyn. Await the result of the blood culture and await the result of COVID-19. The patient might require transesophageal echocardiogram to rule out possibility of endocarditis and other sources clear. JOSEPH XIONG MD DR: SINDI/mina JOB#: [id number] / [id number]
[2020-03-28 11:58] VITALS: BP 101/48
[2020-03-28 15:10] VITALS: BP 104/54
[2020-03-28] MEDS ORDERED: MAGNESIUM HYDROXIDE 2,400 MG/30 ML ORAL.SUSP. PO PRN (15:45)
--- NOTE | 2020-03-28 16:28 | NUR ---
SW following. Spoke with RN and reviewed chart. Pt resides in LTC at [facility], [place], , (fax). [facility] for social contact worker for coordination of care. Pt is COVID pending. Pt on 2l 02. Pt on IV Zyvox and Zosyn. Wound care is being provided. SW to continue following.
--- NOTE | 2020-03-28 16:55 | NUR ---
wound Care Pt still pending Covid 19. Will continue to monitor
[2020-03-28 19:00] VITALS: BP 124/52
[2020-03-28] MEDS: OLANZapine 5 MG TABLET PO SCH (20:56)
[2020-03-28] MEDS: ALPRAZolam 0.5 MG TABLET PO PRN (22:04)
[2020-03-28 23:00] VITALS: BP 117/54
[2020-03-29 03:00] VITALS: BP 112/56
[2020-03-29] MEDS: IV NORMAL SALINE 1000ML BAG 1,000 ML IV SCH ×2 (03:00→16:52)
[2020-03-29 03:32] LABS: HEMATOCRIT 28.7 % (36.0-47.0); HEMOGLOBIN 9.9 g/dL (12.0-15.5); RED BLOOD COUNT 3.23 x10^6/uL (3.50-5.40); RED CELL DISTRIBUTION WIDTH 13.3 % (11.5-14.5); WHITE BLOOD COUNT 6.1 x10^3/uL (4.0-11.0)
[2020-03-29 03:46] LABS: CALCIUM 8.8 mg/dL (8.5-10.1); CREATININE 0.8 mg/dL (0.6-1.0); GFR 70.5; MAGNESIUM 1.7 mg/dL (1.8-2.4); POTASSIUM 3.5 mmol/L (3.5-5.1)
[2020-03-29] MEDS: PIPERACILLIN/TAZOBACTAM 3.375 GM in IV NORMAL SALINE 50ML 50 ML IV SCH ×4 (06:00→23:42)
[2020-03-29] MEDS: LEVOTHYROXINE 25 MCG TABLET. PO SCH (06:21)
[2020-03-29 07:00] VITALS: BP 109/56
[2020-03-29] MEDS ORDERED: MAGNESIUM SULFATE 1GM 100 ML IV ONE (09:00)
[2020-03-29] MEDS: NYSTATIN TOPICAL POWDER 15GM BOTTLE. TP SCH ×2 (10:25→20:49)
[2020-03-29] MEDS: VITS A & D/LANOLIN TOPICAL OINTMENT 42GM TUBE. TP PRN ×2 (10:25→20:48)
--- NOTE | 2020-03-29 10:30 | NUR ---
IP: Notified RICK Malone at [facility] of pt's COVID status. Case also reported to [facility].
[2020-03-29 11:00] VITALS: BP 105/49
--- NOTE | 2020-03-29 12:05 | NUR ---
SW following. Discussed with RN, pt is COVID-19 positive. SW spoke with Chioma at [facility] about pt positive status, requesting [facility] let SW know of there plan of having pt return to their facility when medically stable. Pt getting a PICC line for IV abx, requiring 3L oxygen, which she does not use at her LTC facility. SW will continue to follow.
[2020-03-29] MEDS: MULTIVITAMIN with MINERAL TABLET. PO SCH (12:09)
[2020-03-29] MEDS: DOCUSATE SODIUM 100 MG CAPSULE. PO SCH ×2 (12:09→20:47)
[2020-03-29] MEDS: POTASSIUM CHLORIDE 20 MEQ TABLET.ER. PO SCH (12:09)
[2020-03-29] MEDS: FUROSEMIDE 40 MG TABLET. PO SCH (12:09)
[2020-03-29] MEDS: ASPIRIN CHEWABLE 81 MG TABLET. PO SCH (12:09)
[2020-03-29] MEDS: GABAPENTIN 300 MG CAPSULE. PO SCH ×3 (12:09→20:47)
--- NOTE | 2020-03-29 12:16 | PDOC ---
ROGER MARTIN MUSEUM HOST/HOSTESS 03/29/20 1216: CARDIO Progress Notes Date and Time Date of Service 03/29/2020 Time of Evaluation 1020 Subjective Subjective: No Chest Pain, No shortness of breath, No Palpitations Vitals Vitals Vital Signs Date Time Temp Pulse Resp B/P (MAP) Pulse Ox O2 Delivery O2 Flow Rate FiO2 03/29/20 11:00 96.3 73 19 105/49 (67) 98 Nasal Cannula 3.0 96.3 Weight Weight [ ] Input and Output Intake and Output Intake and Output 03/29/20 07:00 Intake Total 450 ml Output Total 3700 ml Balance -3250 ml Intake Oral 450 ml Output Urine Total 3700 ml Laboratory Labs Laboratory Tests Test 03/28/20 17:02 03/28/20 19:56 03/29/20 02:55 03/29/20 07:43 Glucose (Fingerstick) 104 mg/dL (70-99) 119 mg/dL (70-99) 80 mg/dL (70-99) White Blood Count 6.1 x10^3/uL (4.0-11.0) Red Blood Count 3.23 x10^6/uL (3.50-5.40) Hemoglobin 9.9 g/dL (12.0-15.5) Hematocrit 28.7 % (36.0-47.0) Mean Corpuscular Volume 89 fL (79-100) Mean Corpuscular Hemoglobin 31 pg (25-35) Mean Corpuscular Hemoglobin Concent 34 g/dL (31-37) Red Cell Distribution Width 13.3 % (11.5-14.5) Platelet Count 112 x10^3/uL (140-400) Sodium Level 142 mmol/L (136-145) Potassium Level 3.5 mmol/L (3.5-5.1) Chloride Level 106 mmol/L (98-107) Carbon Dioxide Level 32 mmol/L (21-32) Anion Gap 4 (6-14) Blood Urea Nitrogen 19 mg/dL (7-20) Creatinine 0.8 mg/dL (0.6-1.0) Estimated GFR (Cockcroft-Gault) 70.5 Glucose Level 99 mg/dL (70-99) Calcium Level 8.8 mg/dL (8.5-10.1) Magnesium Level 1.7 mg/dL (1.8-2.4) Microbiology Micro Microbiology 03/27/20 Blood Culture - Preliminary, Resulted NO GROWTH AFTER 2 DAYS Physical Exam Chest: Symmetric LUNGS: Other (diminished) Heart: RRR (SR) Abdomen: Other (obese) Extremities: Other (lymphedema LE) Neurology: alert, follow commands Other Exams Discussed with gas attendant Assessment 1. Fever: +covid 2. AFIB RVR: Paroxysmal by hx. bradycardia in the 40s yesterday better overnight, rate controlled 3. Chronic diastolic CHF: suspect underlying DAMIEN. EF 50% with mild global LV hypokinesis 4. Chronic LE lymphedema 5. Hypertension; controlled 6. HLP 7. Diabetes, II; as per PCP 8. Debility with morbid obesity 9. Hypothyroidism: on replacement Recommendations 1. She was given digoxin and diltiazem. Will place on low dose metoprolol and note HR response. Continue ASA for now for stroke prevention, from previous patient/family conversation declines OAC due to weakness/debility and multiple recent falls and again pt confirms this 2. Will need MCOT and note AFIB burden once fully recorvered from covid. Hold home norvasc to allow BB 3. Supportive care. Justicifation of Admission Dx: Justifications for Admission: Justification of Admission Dx: N/A TJ CRUZ MD 03/30/20 0920: CARDIO Progress Notes Assessment Assessment Patient seen and examined 03/29/20. Agree with ANTICHECKING IRON WORKER's assessment and plan. Atrial fibrillation rate better controlled. Patient is a poor candidate for long-term anticoagulation. Continue management of COVID per ID team. ROGER MARTIN APRN Mar 29, 2020 12:16 TJ CRUZ MD Mar 30, 2020 09:20
--- NOTE | 2020-03-29 12:17 | PDOC ---
Infectious Disease Note Subjective Subjective Feeling better, wants to go home + COVID-19 positive Denies SOA/cough/CP/PEREZ/F/C O2 2L ROS ROS as mentioned above Vital Sign Vital Signs Vital Signs Date Time Temp Pulse Resp B/P (MAP) Pulse Ox O2 Delivery O2 Flow Rate FiO2 03/29/20 11:00 96.3 73 19 105/49 (67) 98 Nasal Cannula 3.0 96.3 Physical Exam PHYSICAL EXAM GENERAL: Propped up in bed, alert in NAD HEENT: Oral cavity clear NECK: Supple LUNGS: Clear bilaterally, nonlabored HEART: S1, S2, no murmurs appreciated ABDOMEN: Obese, soft, bowel sounds present, nontender : Blakely in place EXTREMITIES: Chronic venous stasis with chronic lymphedema. Mild redness present over the left lower extremity. Skin abrasions over the right lower extremity. No surrounding abscess, fluctuance noted. NEUROLOGIC: Alert and oriented x 3, grossly nonfocal. PSYCHIATRIC: Cooperative, flat affect PIV Labs Lab Laboratory Tests Test 03/28/20 17:02 03/28/20 19:56 03/29/20 02:55 03/29/20 07:43 Glucose (Fingerstick) 104 mg/dL (70-99) 119 mg/dL (70-99) 80 mg/dL (70-99) White Blood Count 6.1 x10^3/uL (4.0-11.0) Red Blood Count 3.23 x10^6/uL (3.50-5.40) Hemoglobin 9.9 g/dL (12.0-15.5) Hematocrit 28.7 % (36.0-47.0) Mean Corpuscular Volume 89 fL (79-100) Mean Corpuscular Hemoglobin 31 pg (25-35) Mean Corpuscular Hemoglobin Concent 34 g/dL (31-37) Red Cell Distribution Width 13.3 % (11.5-14.5) Platelet Count 112 x10^3/uL (140-400) Sodium Level 142 mmol/L (136-145) Potassium Level 3.5 mmol/L (3.5-5.1) Chloride Level 106 mmol/L (98-107) Carbon Dioxide Level 32 mmol/L (21-32) Anion Gap 4 (6-14) Blood Urea Nitrogen 19 mg/dL (7-20) Creatinine 0.8 mg/dL (0.6-1.0) Estimated GFR (Cockcroft-Gault) 70.5 Glucose Level 99 mg/dL (70-99) Calcium Level 8.8 mg/dL (8.5-10.1) Magnesium Level 1.7 mg/dL (1.8-2.4) Micro Microbiology 03/27/20 Blood Culture - Preliminary, Resulted NO GROWTH AFTER 2 DAYS Objective Assessment Cellulitis left lower extremity COVID -19 positive, 03/27 Fever - better Altered mental status, likely metabolic, improving. Lactic acidosis. Atrial fibrillation with rapid ventricular response. History of group B strep sepsis. Bipolar disorder with depression. History of congestive heart failure. Degenerative joint disease. Diabetes. Chronic knee pain. Morbid obesity. Peripheral vascular disease. Chronic venous stasis and lymphedema. Plan Plan of Care Continue Zyvox and Zosyn (started 03/27) Follow up blood cultures - neg to date Monitor labs Maintain aspiration precaution. Supportive care Airborne isolation for COVID-19 D/w nursing. Wean abx soon Labs in am including type and screen - Oxygenation is better. May need steroids Attending Co-Sign Attending Co-Sign The patient was seen and interviewed as well as examined at the bedside. The chart was reviewed. The case was discussed. Agree with the plan of care. ANITA LANGE APRN Mar 29, 2020 12:17 WIN MITCHELL MD Mar 29, 2020 17:52
--- NOTE | 2020-03-29 12:39 | PN ---
DATE: 03/29/2020 SUBJECTIVE: The patient is resting, slightly propped up in bed, in no apparent respiratory distress. She is extremely anxious as her COVID test came back positive; however, she herself seemed to be stable. All her vital signs are stable. She is afebrile and maintaining her oxygen saturation at 97% on 3 liters of oxygen. She apparently lost her vascular access and a PICC line was ordered. She has not been seen yet by the Infectious Disease to determine what kind of treatment for her coronavirus infection. PHYSICAL EXAMINATION: GENERAL: When I examined her, she looked pale, but no jaundice, cyanosis or thyromegaly. No jugular venous distention. No limb edema. VITAL SIGNS: Her heart rate was 71, blood pressure was 109/56, temperature was 96.3, respiratory rate 20, and oxygen saturation was 97% on 3 liters of oxygen. HEART: Showed normal first and second heart sounds. No gallop, rub or murmur. CHEST: Clear to auscultation. No crepitation or rhonchi. ABDOMEN: Distended, soft, nontender. NEUROLOGIC: She is awake, alert, responding appropriately. All her cranial nerves intact. She moves extremities without difficulty, although she is mostly bedbound. Her intake over the last 24 hours was 1070, output was 1475. LABORATORY DATA: Her white cell count was 6000, hemoglobin 9.9, hematocrit 28, MCV 89 and platelet count of 112,000. Her chemistry showed a serum sodium 142, potassium 3.5, chloride 106, bicarbonate 32, anion gap of 4, her BUN was 19, creatinine was 0.8, blood sugar was 99, calcium was 8.8, and magnesium was 1.9. ASSESSMENT: 1. Altered mental status, likely due to metabolic encephalopathy, resolved. 2. Fever, likely due to COVID-19 infection. 3. Mild erythema on the outer aspect of left lower extremity with chronic lymphedema. 4. Atrial fibrillation with rapid ventricular response, now rate controlled. 5. History of group B Streptococcus infection. 6. History of chronic diastolic congestive heart failure, clinically stable. 7. Type 2 diabetes mellitus seems to be well controlled. 8. Osteoarthritis of both knee joints. 9. Morbid obesity. 10. Peripheral vascular disease. PLAN: To proceed with PICC line placement. Continue with IV Zyvox and Zosyn. She is now COVID-19 positive. I will await the evaluation by the Infectious Disease to decide on further management. JOSEPH XIONG MD DR: SINDI/mina JOB#: [id number] / [id number]
[2020-03-29] MEDS: METOPROLOL SUCC 24HR ER 25 MG TAB.ER.24H. PO SCH (14:00)
--- NOTE | 2020-03-29 14:23 | NUR ---
non administered 1400 gabapentin dose, earlier dose given at 1200
[2020-03-29 15:00] VITALS: BP 100/52
--- NOTE | 2020-03-29 15:15 | NUR ---
PICC Pre-Insertion Note- Allergies and reactions NKDA INR n/a BUN 19 Cr 0.8 Platelets 112 Blood culture done yes blood culture results no growth x 2 days Order Verified yes Consent signed yes Previous PICC placement yes Past Medical/Surgical history and current diagnosis reviewed yes Patient Medical /Surgical History Related to PICC line placement Arrhythmias Diabetes Infectious Disease consult Past central line or venous access device placement Special considerations for PICC line placement None PICC placement indication Multiple/ Frequent blood draws, Poor peripheral intravenous access PICC Nurse- Leydi Soliz RN Addendum: 03/29/20 at 1639 by KRYSTA SOLIZ RN Amended: Links added.
--- NOTE | 2020-03-29 16:44 | RAD ---
EXAM: CHEST 1 VIEW History: PICC line placement COMPARISON: 03/17/2020 TECHNIQUE: Single portable radiograph of the chest FINDINGS: Low lung volumes and technique accentuates heart size and pulmonary vascularity. Moderate cardiomegaly. Right-sided PICC line is identified in the tip projecting in the distal SVC region. Mild prominent bilateral interstitial lung markings. IMPRESSION: 1. Right-sided PICC line in place. 2. Mild congestive changes. Electronically signed by: Shlomo Mcpherson MD (03/29/2020 4:41 PM) [id number]
[2020-03-29] MEDS: ALPRAZolam 0.5 MG TABLET PO PRN (16:48)
--- NOTE | 2020-03-29 16:48 | NUR ---
PICC Insertion Note Procedure: Following complete explanation of the PICC procedure including the indications, risks, and potential complications, informed consent was obtained. The possibility for infection was discussed along with signs, symptoms, and prevention. All the questions were answered. Written and verbal patient education was provided. Hand hygiene performed. Standardized central line checklist was utilized. The patient was placed in the supine position, the arm was prepped with chlorhexidine and patient draped with maximum sterile barrier. 2 mL 1% lidocaine was infiltrated into the skin to provide local anesthesia. A thorough assessment of right upper extremity completed. Using real-time ultrasound guidance and standardized micro puncture set, the brachial vein was punctured and a peel away sheath was placed using the modified Seldinger technique. A tip location device was used to ensure adequate catheter placement. The catheter was secured using a securement device and an antimicrobial patch was applied directly on the insertion site followed by a transparent dressing. All ports withdraw blood and flush without resistance. Patient tolerated the procedure without apparent complication(s). Double Lumen Power PICC placement successful and uncomplicated. Placement verified by EKG tip confirmation system and/or chest x-ray. Tip located in the distal SVC. Complications: Catheter kinked in process of insertion, after chest xray to confirm location, PICC withdrawn 3cm and reinserted and chest xray repeated with tip location in distal SVC and positive for blood return. PICC catheter trimmed at 46cm with 0cm visible at insertion site.
--- NOTE | 2020-03-29 19:02 | NUR ---
Non administered IV antibiotics earlier today, no venous access and patient is hard stick. PICC line placed this afternoon, resumed schedule as indicated
[2020-03-29 19:45] VITALS: BP 103/53
[2020-03-29] MEDS: LACTOBACILLUS RHAMNOSUS GG 1 CAPSULE. PO SCH (20:47)
[2020-03-29] MEDS: OLANZapine 5 MG TABLET PO SCH (20:47)
[2020-03-29 23:30] VITALS: BP 96/49
[2020-03-30 03:00] VITALS: BP 97/42
[2020-03-30 04:44] LABS: BASO % 0 % (0-3); EOS # 0.2 x10^3/uL (0.0-0.7); EOS % 4 % (0-3); HEMATOCRIT 26.7 % (36.0-47.0); HEMOGLOBIN 8.9 g/dL (12.0-15.5); LYMPH # 2.4 x10^3/uL (1.0-4.8); LYMPH % 48 % (24-48); MEAN CORPUSCULAR HEMOGLOBIN 30 pg (25-35); MEAN CORPUSCULAR HGB CONC 34 g/dL (31-37); MEAN CORPUSCULAR VOLUME 89 fL (79-100); MONO # 0.5 x10^3/uL (0.0-1.1); MONO % 11 % (0-9); NEUT # 1.8 x10^3/uL (1.8-7.7); NEUT % 37 % (31-73); PLATELET COUNT 147 x10^3/uL (140-400); RED BLOOD COUNT 2.99 x10^6/uL (3.50-5.40); RED CELL DISTRIBUTION WIDTH 13.2 % (11.5-14.5); WHITE BLOOD COUNT 4.9 x10^3/uL (4.0-11.0)
[2020-03-30 05:01] LABS: ALBUMIN 1.9 g/dL (3.4-5.0); ALBUMIN/GLOBULIN RATIO 0.6 (1.0-1.7); CALCIUM 8.1 mg/dL (8.5-10.1); CREATININE 0.6 mg/dL (0.6-1.0); GFR 98.3; POTASSIUM 3.6 mmol/L (3.5-5.1); TOTAL BILIRUBIN 0.2 mg/dL (0.2-1.0); TOTAL PROTEIN 5.3 g/dL (6.4-8.2)
[2020-03-30] MEDS: PIPERACILLIN/TAZOBACTAM 3.375 GM in IV NORMAL SALINE 50ML 50 ML IV SCH ×4 (05:46→23:08)
[2020-03-30] MEDS: LEVOTHYROXINE 25 MCG TABLET. PO SCH (05:47)
[2020-03-30] MEDS: IV NORMAL SALINE 1000ML BAG 1,000 ML IV SCH ×2 (05:47→09:00)
[2020-03-30 07:00] VITALS: BP 101/50
[2020-03-30] MEDS: LACTOBACILLUS RHAMNOSUS GG 1 CAPSULE. PO SCH ×2 (07:59→20:41)
[2020-03-30] MEDS: MULTIVITAMIN with MINERAL TABLET. PO SCH (07:59)
[2020-03-30] MEDS: ASPIRIN CHEWABLE 81 MG TABLET. PO SCH (07:59)
[2020-03-30] MEDS: DOCUSATE SODIUM 100 MG CAPSULE. PO SCH ×2 (08:00→20:41)
[2020-03-30] MEDS: FUROSEMIDE 40 MG TABLET. PO SCH (08:00)
[2020-03-30] MEDS: POTASSIUM CHLORIDE 20 MEQ TABLET.ER. PO SCH (08:00)
[2020-03-30] MEDS: HYDROcodone/APAP 5/325MG 1 TAB TABLET PO PRN (08:00)
[2020-03-30] MEDS: GABAPENTIN 300 MG CAPSULE. PO SCH ×3 (08:01→20:41)
--- NOTE | 2020-03-30 09:52 | PN ---
DATE: SUBJECTIVE: The patient is resting, slightly propped up in bed, eating her breakfast comfortably, in no apparent distress. Apart from being frustrated for isolation and unable to do what she likes, reading books, she denied any other complaint. Nursing staff did not voice any concern. PHYSICAL EXAMINATION: GENERAL: When I examined her, she looked pale, but no jaundice, cyanosis or thyromegaly. No jugular venous distention. No limb edema. VITAL SIGNS: Her heart rate was 62, blood pressure was 101/50, temperature 96.6, respiratory rate was 18 and oxygen saturation was 100% on 3 liters of oxygen. The rest of clinical exam is stable, has not really changed. Her intake over the last 24 hours was 450, output was 3700. LABORATORY DATA: Her lab work this morning showed a white cell count 4900, hemoglobin was 9, hematocrit 27, MCV 89 and platelet count of 147,000. Her chemistry showed a serum sodium 144, potassium 3.6, chloride 109, bicarbonate 31, anion gap of 4, BUN 12, creatinine 0.6, estimated GFR was 98 mL per minute. Her glucose was 72, calcium was 8.1. Total bilirubin, AST, ALT, alkaline phosphatase were normal. Total protein was 5.3, albumin was 1.9. ASSESSMENT: 1. Altered mental status, likely due to metabolic encephalopathy, resolved. 2. Fever, likely due to COVID-19 infection. 3. Mild erythema on the outer aspect of the left lower extremity with chronic venous hypertension, lymphedema. 4. Atrial fibrillation with rapid ventricular response, now rate controlled. 5. History of group B Streptococcus infection. 6. History of chronic diastolic congestive heart failure, clinically stable. 7. Type 2 diabetes mellitus, seems to be well controlled. 8. Severe osteoarthritis of both knee joints. 9. Morbid obesity. 10. Peripheral vascular disease. Plan is to continue with IV Zyvox and Zosyn. She is now positive for COVID-19; however, she is stable with normal white cell count, requirement of oxygen is stable and her kidney function is normal and her liver enzymes are all within normal range. 11. Severe protein-calorie malnutrition. Her serum albumin is only 1.9 g/dL. JOSEPH XIONG MD DR: SINDI/mina JOB#: [id number] / [id number]
[2020-03-30 11:00] VITALS: BP 112/57
[2020-03-30] MEDS: METOPROLOL SUCC 24HR ER 25 MG TAB.ER.24H. PO SCH (11:14)
--- NOTE | 2020-03-30 13:18 | PDOC ---
PROGRESS NOTES Subjective Subjective Comfortable, no new complaints Objective Objective Vital Signs Date Time Temp Pulse Resp B/P (MAP) Pulse Ox O2 Delivery O2 Flow Rate FiO2 03/30/20 11:14 74 101/50 03/30/20 11:00 97.1 20 96 Nasal Cannula 1.0 97.1 Intake and Output 03/30/20 07:00 Intake Total 960 ml Output Total 3475 ml Balance -2515 ml Intake Oral 960 ml Output Urine Total 3475 ml Physical Exam Abdomen: Soft Extremities: No cyanosis General: Alert, Oriented X3, Cooperative, No acute distress HEENT: Atraumatic, Mucous membr. moist/pink Lungs: Other (CXR reviewed) MUSCULOSKELETAL: No joint tenderness Neuro: Normal speech, Sensation intact Psych/Mental Status: Mental status NL Skin: No breakdown Assessment Assessment 1. Fever: +covid. Treat per ID team. 2. AFIB RVR: Paroxysmal by hx, rate well controlled. No further episodes of bradycardia were noted. Patient is a poor candidate for long-term anticoagulation. 3. Chronic diastolic CHF: EF 50%. Clinically well compensated. 4. Chronic LE lymphedema 5. Hypertension; controlled 6. HLP 7. Diabetes, II; as per PCP 8. Debility with morbid obesity 9. Hypothyroidism: on replacement Plan Plan of Care Problems Medical Problems: (1) Altered mental status Status: Acute (2) Fever Status: Acute Comment Review of Relevant I have reviewed the following items manoj (where applicable) has been applied. Labs Laboratory Tests Test 03/29/20 16:57 03/30/20 04:30 03/30/20 11:46 Glucose (Fingerstick) 129 mg/dL (70-99) 132 mg/dL (70-99) White Blood Count 4.9 x10^3/uL (4.0-11.0) Red Blood Count 2.99 x10^6/uL (3.50-5.40) Hemoglobin 8.9 g/dL (12.0-15.5) Hematocrit 26.7 % (36.0-47.0) Mean Corpuscular Volume 89 fL (79-100) Mean Corpuscular Hemoglobin 30 pg (25-35) Mean Corpuscular Hemoglobin Concent 34 g/dL (31-37) Red Cell Distribution Width 13.2 % (11.5-14.5) Platelet Count 147 x10^3/uL (140-400) Neutrophils (%) (Auto) 37 % (31-73) Lymphocytes (%) (Auto) 48 % (24-48) Monocytes (%) (Auto) 11 % (0-9) Eosinophils (%) (Auto) 4 % (0-3) Basophils (%) (Auto) 0 % (0-3) Neutrophils # (Auto) 1.8 x10^3/uL (1.8-7.7) Lymphocytes # (Auto) 2.4 x10^3/uL (1.0-4.8) Monocytes # (Auto) 0.5 x10^3/uL (0.0-1.1) Eosinophils # (Auto) 0.2 x10^3/uL (0.0-0.7) Basophils # (Auto) 0.0 x10^3/uL (0.0-0.2) Sodium Level 144 mmol/L (136-145) Potassium Level 3.6 mmol/L (3.5-5.1) Chloride Level 109 mmol/L (98-107) Carbon Dioxide Level 31 mmol/L (21-32) Anion Gap 4 (6-14) Blood Urea Nitrogen 12 mg/dL (7-20) Creatinine 0.6 mg/dL (0.6-1.0) Estimated GFR (Cockcroft-Gault) 98.3 BUN/Creatinine Ratio 20 (6-20) Glucose Level 72 mg/dL (70-99) Calcium Level 8.1 mg/dL (8.5-10.1) Total Bilirubin 0.2 mg/dL (0.2-1.0) Aspartate Amino Transf (AST/SGOT) 15 U/L (15-37) Alanine Aminotransferase (ALT/SGPT) 14 U/L (14-59) Alkaline Phosphatase 58 U/L (46-116) Total Protein 5.3 g/dL (6.4-8.2) Albumin 1.9 g/dL (3.4-5.0) Albumin/Globulin Ratio 0.6 (1.0-1.7) Microbiology 03/27/20 Blood Culture - Preliminary, Resulted NO GROWTH AFTER 3 DAYS Medications Current Medications Lactobacillus Rhamnosus (Culturelle) 1 cap BID PO Last administered on 03/30/20at 07:59; Start 03/29/20 at 21:00 Vitals/I & O Vital Sign - Last 24 Hours 03/29/20 03/29/20 03/29/20 03/29/20 14:00 15:00 19:45 20:00 Temp 97.3 97.5 97.3 97.5 Pulse 73 76 66 Resp 19 16 B/P (MAP) 105/49 100/52 (68) 103/53 (70) Pulse Ox 96 99 O2 Delivery Nasal Cannula Nasal Cannula Nasal Cannula O2 Flow Rate 3.0 3.0 3.0 03/29/20 03/30/20 03/30/20 03/30/20 23:30 03:00 07:00 08:00 Temp 97.1 96.6 96.6 97.1 96.6 96.6 Pulse 54 64 62 Resp 16 16 18 18 B/P (MAP) 96/49 (65) 97/42 (60) 101/50 (67) Pulse Ox 99 98 100 100 O2 Delivery Nasal Cannula Nasal Cannula Nasal Cannula Nasal Cannula O2 Flow Rate 3.0 3.0 3.0 03/30/20 03/30/20 03/30/20 08:00 11:00 11:14 Temp 97.1 97.1 Pulse 77 74 Resp 20 B/P (MAP) 112/57 (75) 101/50 Pulse Ox 96 O2 Delivery Nasal Cannula Nasal Cannula O2 Flow Rate 1.5 1.0 Intake and Output 03/29/20 03/29/20 03/30/20 15:00 23:00 07:00 Intake Total 360 ml 600 ml Output Total 600 ml 1000 ml 1875 ml Balance -240 ml -1000 ml -1275 ml TJ CRUZ MD Mar 30, 2020 13:17
--- NOTE | 2020-03-30 13:57 | PDOC ---
Infectious Disease Note Subjective Subjective Hoping to return home soon, but doesn't want to put anyone in danger at the detention 10/30 COVID-19 +. Comfortable Enjoying the rays of the sun shining through the window Denies increase work of breathing Now satting above 95% on room air Denies F/C/N/V/cough ROS ROS as mentioned above Vital Sign Vital Signs Vital Signs Date Time Temp Pulse Resp B/P (MAP) Pulse Ox O2 Delivery O2 Flow Rate FiO2 03/30/20 11:14 74 101/50 03/30/20 11:00 97.1 20 96 Nasal Cannula 1.0 97.1 Physical Exam PHYSICAL EXAM GENERAL: Propped up in bed, alert in NAD HEENT: Oral cavity clear NECK: Supple LUNGS: Clear bilaterally, nonlabored HEART: S1, S2, no murmurs appreciated ABDOMEN: Obese, soft, bowel sounds present, nontender : Blakely in place EXTREMITIES: Chronic venous stasis with chronic lymphedema. Faint redness present over the left lower extremity. Skin abrasions over the right lower extremity. NEUROLOGIC: Alert and oriented x 3, grossly nonfocal. PSYCHIATRIC: Cooperative, flat affect RUE-PICC (03/29) without signs of complications Labs Lab Laboratory Tests Test 03/29/20 16:57 03/30/20 04:30 03/30/20 11:46 Glucose (Fingerstick) 129 mg/dL (70-99) 132 mg/dL (70-99) White Blood Count 4.9 x10^3/uL (4.0-11.0) Red Blood Count 2.99 x10^6/uL (3.50-5.40) Hemoglobin 8.9 g/dL (12.0-15.5) Hematocrit 26.7 % (36.0-47.0) Mean Corpuscular Volume 89 fL (79-100) Mean Corpuscular Hemoglobin 30 pg (25-35) Mean Corpuscular Hemoglobin Concent 34 g/dL (31-37) Red Cell Distribution Width 13.2 % (11.5-14.5) Platelet Count 147 x10^3/uL (140-400) Neutrophils (%) (Auto) 37 % (31-73) Lymphocytes (%) (Auto) 48 % (24-48) Monocytes (%) (Auto) 11 % (0-9) Eosinophils (%) (Auto) 4 % (0-3) Basophils (%) (Auto) 0 % (0-3) Neutrophils # (Auto) 1.8 x10^3/uL (1.8-7.7) Lymphocytes # (Auto) 2.4 x10^3/uL (1.0-4.8) Monocytes # (Auto) 0.5 x10^3/uL (0.0-1.1) Eosinophils # (Auto) 0.2 x10^3/uL (0.0-0.7) Basophils # (Auto) 0.0 x10^3/uL (0.0-0.2) Sodium Level 144 mmol/L (136-145) Potassium Level 3.6 mmol/L (3.5-5.1) Chloride Level 109 mmol/L (98-107) Carbon Dioxide Level 31 mmol/L (21-32) Anion Gap 4 (6-14) Blood Urea Nitrogen 12 mg/dL (7-20) Creatinine 0.6 mg/dL (0.6-1.0) Estimated GFR (Cockcroft-Gault) 98.3 BUN/Creatinine Ratio 20 (6-20) Glucose Level 72 mg/dL (70-99) Calcium Level 8.1 mg/dL (8.5-10.1) Total Bilirubin 0.2 mg/dL (0.2-1.0) Aspartate Amino Transf (AST/SGOT) 15 U/L (15-37) Alanine Aminotransferase (ALT/SGPT) 14 U/L (14-59) Alkaline Phosphatase 58 U/L (46-116) Total Protein 5.3 g/dL (6.4-8.2) Albumin 1.9 g/dL (3.4-5.0) Albumin/Globulin Ratio 0.6 (1.0-1.7) Micro Microbiology 03/27/20 Blood Culture - Preliminary, Resulted NO GROWTH AFTER 2 DAYS Objective Assessment Cellulitis left lower extremity - improving COVID -19 positive, 03/27 Fever - better Altered mental status, likely metabolic, improving. Lactic acidosis. Atrial fibrillation with rapid ventricular response. History of group B strep sepsis. Bipolar disorder with depression. History of congestive heart failure. Degenerative joint disease. Diabetes. Chronic knee pain. Morbid obesity. Peripheral vascular disease. Chronic venous stasis and lymphedema. Plan Plan of Care Continue Zyvox and Zosyn (started 03/27) Follow up blood cultures - neg to date Monitor labs Maintain aspiration precaution. Supportive care Airborne isolation for COVID-19 D/w nursing. Clinically better on 0/5 L 02 and LLE much better Attending Co-Sign Attending Co-Sign The patient was seen and interviewed as well as examined at the bedside. The chart was reviewed. The case was discussed. Agree with the plan of care. ANITA LANGE APRN Mar 30, 2020 13:57 WIN MITCHELL MD Mar 30, 2020 15:41
[2020-03-30 15:00] VITALS: BP 114/72
[2020-03-30] MEDS: VITS A & D/LANOLIN TOPICAL OINTMENT 42GM TUBE. TP PRN (15:05)
[2020-03-30] MEDS: NYSTATIN TOPICAL POWDER 15GM BOTTLE. TP SCH ×2 (15:06→20:43)
[2020-03-30 19:12] VITALS: BP 131/66
[2020-03-30] MEDS: OLANZapine 5 MG TABLET PO SCH (20:41)
[2020-03-30] MEDS: ALPRAZolam 0.5 MG TABLET PO PRN (21:13)
[2020-03-30 23:21] VITALS: BP 93/54
[2020-03-31 02:43] VITALS: BP 115/59
[2020-03-31] MEDS: LEVOTHYROXINE 25 MCG TABLET. PO SCH (05:52)
[2020-03-31] MEDS: PIPERACILLIN/TAZOBACTAM 3.375 GM in IV NORMAL SALINE 50ML 50 ML IV SCH ×3 (05:52→18:16)
[2020-03-31 07:00] VITALS: BP 113/80
[2020-03-31] MEDS: NYSTATIN TOPICAL POWDER 15GM BOTTLE. TP SCH ×2 (09:00→22:04)
[2020-03-31] MEDS: GABAPENTIN 300 MG CAPSULE. PO SCH ×3 (09:42→22:03)
[2020-03-31] MEDS: MULTIVITAMIN with MINERAL TABLET. PO SCH (09:42)
[2020-03-31] MEDS: LACTOBACILLUS RHAMNOSUS GG 1 CAPSULE. PO SCH ×2 (09:42→22:04)
[2020-03-31] MEDS: FUROSEMIDE 40 MG TABLET. PO SCH (09:42)
[2020-03-31] MEDS: DOCUSATE SODIUM 100 MG CAPSULE. PO SCH ×2 (09:43→21:00)
[2020-03-31] MEDS: HYDROcodone/APAP 5/325MG 1 TAB TABLET PO PRN (09:43)
[2020-03-31] MEDS: POTASSIUM CHLORIDE 20 MEQ TABLET.ER. PO SCH (09:43)
[2020-03-31] MEDS: ASPIRIN CHEWABLE 81 MG TABLET. PO SCH (09:43)
[2020-03-31] MEDS: METOPROLOL SUCC 24HR ER 25 MG TAB.ER.24H. PO SCH (09:43)
--- NOTE | 2020-03-31 09:45 | PDOC ---
PROGRESS NOTES Subjective Subjective No new complaints Objective Objective Vital Signs Date Time Temp Pulse Resp B/P (MAP) Pulse Ox O2 Delivery O2 Flow Rate FiO2 03/31/20 07:00 96.9 61 20 113/80 (91) 99 Nasal Cannula 0.5 96.9 Intake and Output 03/31/20 07:00 Intake Total 3430 ml Output Total 4275 ml Balance -845 ml Intake Oral 1150 ml Blood Product IV Normal Saline Flush 2280 ml Output Urine Total 4275 ml Physical Exam Abdomen: Soft Extremities: No cyanosis General: Alert, Oriented X3, Cooperative, No acute distress HEENT: Atraumatic, Mucous membr. moist/pink Lungs: Other (CXR reviewed) MUSCULOSKELETAL: No joint tenderness Neuro: Normal speech, Sensation intact Psych/Mental Status: Mental status NL Skin: No breakdown Assessment Assessment 1. Fever: +covid, cellulitis LLE, treat per ID team. 2. AFIB RVR: heart rate well controlled. No further episodes of bradycardia noted. Patient is a poor candidate for long-term anticoagulation. 3. Chronic diastolic CHF: EF 50%. Clinically well compensated. 4. Chronic LE lymphedema 5. Hypertension; controlled 6. HLP 7. Diabetes, II; as per PCP 8. Debility with morbid obesity 9. Hypothyroidism: on replacement Plan Plan of Care Problems Medical Problems: (1) Altered mental status Status: Acute (2) Fever Status: Acute Comment Review of Relevant I have reviewed the following items manoj (where applicable) has been applied. Labs Laboratory Tests Test 03/30/20 11:46 03/30/20 21:54 Glucose (Fingerstick) 132 mg/dL (70-99) 128 mg/dL (70-99) Microbiology 03/27/20 Blood Culture - Preliminary, Resulted NO GROWTH AFTER 4 DAYS Vitals/I & O Vital Sign - Last 24 Hours 03/30/20 03/30/20 03/30/20 03/30/20 10:00 11:00 11:14 15:00 Temp 97.1 95.8 97.1 95.8 Pulse 77 74 67 Resp 20 24 B/P (MAP) 112/57 (75) 101/50 114/72 (86) Pulse Ox 96 96 92 O2 Delivery Nasal Cannula Nasal Cannula Nasal Cannula O2 Flow Rate 1.0 1.0 0.5 03/30/20 03/30/20 03/30/20 03/31/20 19:12 19:15 23:21 02:43 Temp 97.9 97.8 97.5 97.9 97.8 97.5 Pulse 78 64 87 Resp 18 18 18 B/P (MAP) 131/66 (87) 93/54 (67) 115/59 (77) Pulse Ox 97 97 97 O2 Delivery Nasal Cannula Nasal Cannula Nasal Cannula Nasal Cannula O2 Flow Rate 1.0 1.0 5.0 5.0 03/31/20 07:00 Temp 96.9 96.9 Pulse 61 Resp 20 B/P (MAP) 113/80 (91) Pulse Ox 99 O2 Delivery Nasal Cannula O2 Flow Rate 0.5 Intake and Output 03/30/20 03/30/20 03/31/20 15:00 23:00 07:00 Intake Total 500 ml 2680 ml 250 ml Output Total 725 ml 1900 ml 1650 ml Balance -225 ml 780 ml -1400 ml TJ CRUZ MD Mar 31, 2020 09:45
[2020-03-31 11:00] VITALS: BP 153/72
--- NOTE | 2020-03-31 11:11 | PN ---
DATE: 03/31/2020 SUBJECTIVE: The patient is resting, slightly propped up in bed, no apparent distress. She is awake, alert, seemed to be in a much better spirit this morning. PHYSICAL EXAMINATION: GENERAL: When I examined her, she was pale, no jaundice, cyanosis or thyromegaly. No jugular venous distention. No limb edema. VITAL SIGNS: Her heart rate was 63, blood pressure was 113/80, temperature was 96.9, respiratory rate 20, and oxygen saturation was 99% on half liter of oxygen. HEAD, EYES, EARS, NOSE, AND THROAT: Showed normocephalic, atraumatic. NECK: Supple. HEART: Showed normal first and second heart sounds. No gallop, rub, or murmur. CHEST: Clear to auscultation. No crepitation or rhonchi. ABDOMEN: Distended, soft, nontender. No guarding or rigidity. No organomegaly. All hernial orifices intact. Bowel sounds normal. NEUROLOGIC: She is awake, alert, responding appropriately. All cranial nerves are intact. She moves upper extremities to much good extent than lower extremities. She is mostly bedbound, chair bound. Her intake over the last 24 hours was 960 and output was 3475. LABORATORY DATA: No lab work done this morning. Her white cell count yesterday was 4900, hemoglobin 9, hematocrit 27, MCV 89 and platelet count of 147,000. Her chemistry showed a serum sodium 144, potassium 3.6, chloride 109, bicarbonate 31, anion gap of 4, BUN 12, creatinine 0.6, and estimated GFR was 98 mL per minute. So far, her blood cultures showed no growth after 4 days. ASSESSMENT: 1. Altered mental status, likely due to metabolic encephalopathy, resolved. 2. Fever, likely due to COVID-19 infection. 3. Mild erythema on the outer aspect of left lower extremity with chronic lymphedema. 4. Atrial fibrillation with rapid ventricular response, now rate controlled. She is not a candidate for anticoagulation. 5. History of group B Streptococcus infection. 6. History of chronic diastolic congestive heart failure, clinically well compensated. 7. Type 2 diabetes mellitus, seems to be well controlled. 8. Severe osteoarthritis of both knee joints. 9. Morbid obesity. 10. Peripheral vascular disease. 11. The patient is positive for COVID-19; however, she is stable with normal white cell count. Her requirements of oxygen are stable. Her kidney function is normal and her liver enzymes are within normal range. 12. Severe protein-calorie malnutrition, serum albumin is only 1.9 g/dL. PLAN: To continue with IV Zyvox and Zosyn. JOSEPH XIONG MD DR: SINDI/mina JOB#: [id number] / [id number]
--- NOTE | 2020-03-31 12:18 | PDOC ---
Infectious Disease Note Subjective Subjective Comfortable, denies pain/F/C O2 sats drop some during sleep per nursing. Now on 0.5L satting above 95% Denies increase work of breathing/CP/cough ROS ROS as mentioned above Vital Sign Vital Signs Vital Signs Date Time Temp Pulse Resp B/P (MAP) Pulse Ox O2 Delivery O2 Flow Rate FiO2 03/31/20 09:43 63 113/80 03/31/20 09:43 99 Nasal Cannula 0.5 03/31/20 07:00 96.9 20 96.9 Physical Exam PHYSICAL EXAM GENERAL: Propped up in bed, alert in NAD HEENT: Oral cavity clear NECK: Supple LUNGS: Clear bilaterally, nonlabored HEART: S1, S2, no murmurs appreciated ABDOMEN: Obese, soft, bowel sounds present, nontender : Blakely in place EXTREMITIES: Chronic venous stasis with chronic lymphedema. Faint redness present over the left lower extremity. Skin abrasions over the right lower extremity. NEUROLOGIC: Alert and oriented x 3, grossly nonfocal. PSYCHIATRIC: Cooperative, flat affect RUE-PICC (03/29) without signs of complications Labs Lab Laboratory Tests Test 03/30/20 21:54 Glucose (Fingerstick) 128 mg/dL (70-99) Micro Microbiology 03/27/20 Blood Culture - Preliminary, Resulted NO GROWTH AFTER 4 DAYS Objective Assessment Cellulitis left lower extremity - improving COVID -19 positive, 03/27 Fever - better Altered mental status, likely metabolic, improving. Lactic acidosis. Atrial fibrillation with rapid ventricular response. History of group B strep sepsis. Bipolar disorder with depression. History of congestive heart failure. Degenerative joint disease. Diabetes. Chronic knee pain. Morbid obesity. Peripheral vascular disease. Chronic venous stasis and lymphedema. Plan Plan of Care Continue Zyvox and Zosyn (started 03/27) Follow up blood cultures - neg to date Monitor labs Maintain aspiration precaution. Supportive care Airborne isolation for COVID-19 D/w nursing. Patient discussed with PORTABLE IRRIGATION OPERATOR. Chart reviewed in detail. Above plan co-formulated and agreed upon with PORTABLE IRRIGATION OPERATOR on 03/31/2020. ANITA LANGE APRN Mar 31, 2020 12:17 CECILIA MA MD Apr 01, 2020 20:03
[2020-03-31 15:00] VITALS: BP 126/61
[2020-03-31 19:10] VITALS: BP 151/68
[2020-03-31] MEDS: ALPRAZolam 0.5 MG TABLET PO PRN (22:03)
[2020-03-31] MEDS: OLANZapine 5 MG TABLET PO SCH (22:05)
[2020-03-31 22:46] VITALS: BP 140/74
[2020-04-01] MEDS: PIPERACILLIN/TAZOBACTAM 3.375 GM in IV NORMAL SALINE 50ML 50 ML IV SCH ×4 (00:15→17:49)
[2020-04-01 04:15] VITALS: BP 121/66
[2020-04-01] MEDS: LEVOTHYROXINE 25 MCG TABLET. PO SCH (05:49)
[2020-04-01 05:51] LABS: HEMATOCRIT 29.1 % (36.0-47.0); RED BLOOD COUNT 3.27 x10^6/uL (3.50-5.40); RED CELL DISTRIBUTION WIDTH 13.4 % (11.5-14.5); WHITE BLOOD COUNT 4.8 x10^3/uL (4.0-11.0)
[2020-04-01 06:10] LABS: ALBUMIN 2.2 g/dL (3.4-5.0); ALBUMIN/GLOBULIN RATIO 0.6 (1.0-1.7); CALCIUM 8.6 mg/dL (8.5-10.1); CREATININE 0.9 mg/dL (0.6-1.0); GFR 61.5; POTASSIUM 3.6 mmol/L (3.5-5.1); TOTAL BILIRUBIN 0.3 mg/dL (0.2-1.0); TOTAL PROTEIN 5.9 g/dL (6.4-8.2)
[2020-04-01 07:50] VITALS: BP 117/58
[2020-04-01] MEDS: GABAPENTIN 300 MG CAPSULE. PO SCH ×3 (08:19→22:01)
[2020-04-01] MEDS: FUROSEMIDE 40 MG TABLET. PO SCH (08:19)
[2020-04-01] MEDS: ASPIRIN CHEWABLE 81 MG TABLET. PO SCH (08:19)
[2020-04-01] MEDS: MULTIVITAMIN with MINERAL TABLET. PO SCH (08:19)
[2020-04-01] MEDS: LACTOBACILLUS RHAMNOSUS GG 1 CAPSULE. PO SCH ×2 (08:19→22:01)
[2020-04-01] MEDS: POTASSIUM CHLORIDE 20 MEQ TABLET.ER. PO SCH (08:19)
[2020-04-01] MEDS: DOCUSATE SODIUM 100 MG CAPSULE. PO SCH ×2 (08:21→21:00)
[2020-04-01] MEDS: NYSTATIN TOPICAL POWDER 15GM BOTTLE. TP SCH ×2 (08:21→22:01)
[2020-04-01] MEDS: VITS A & D/LANOLIN TOPICAL OINTMENT 42GM TUBE. TP PRN ×2 (08:21→22:01)
[2020-04-01] MEDS: METOPROLOL SUCC 24HR ER 25 MG TAB.ER.24H. PO SCH (08:21)
--- NOTE | 2020-04-01 10:00 | PN ---
DATE: 04/01/2020 SUBJECTIVE: The patient is resting flat in bed, no apparent distress. On questioning her, denied any complaint. The nursing staff did not voice any concerns that she has an uneventful night. PHYSICAL EXAMINATION: GENERAL: When I examined her, she looked pale, but no jaundice, cyanosis or thyromegaly. No jugular venous distention. No lower limb edema. VITAL SIGNS: Her heart rate was 65, blood pressure was 121/66, temperature was 96.8, respiratory rate was 16, and oxygen saturation was 97% on 2 liters of oxygen. HEAD, EYES, EARS, NOSE AND THROAT: Showed normocephalic, atraumatic. NECK: Supple. CARDIAC: Normal first and second heart sounds. No gallop, rub or murmur. CHEST: Clear to auscultation. No crepitation or rhonchi. ABDOMEN: Distended, soft, nontender. No guarding or rigidity. No organomegaly. All hernial orifices intact. Bowel sounds normal. NEUROLOGIC: She was awake, alert, responding appropriately. She moves upper extremities to a greater extent than lower extremities. She is mostly bedbound, chair bound. LABORATORY DATA: Her lab work this morning showed a white cell count 4800, hemoglobin 10, hematocrit 29, MCV 89 and platelet count of 163,000. Her chemistries stable with a BUN of 12, creatinine 0.9. Liver enzymes are normal. Her blood cultures are so far negative. Her COVID-19 test was positive. ASSESSMENT: 1. Altered mental status, likely due to metabolic encephalopathy, resolved. 2. Fever, likely due to COVID-19 infection. 3. Mild erythema on the outer aspect of left lower extremity with chronic lymphedema. 4. Atrial fibrillation with rapid ventricular response, now rate controlled. She is not a candidate for anticoagulation. 5. History of group B Streptococcus infection. 6. History of chronic diastolic congestive heart failure, clinically well compensated. 7. Type 2 diabetes mellitus, seems to be well controlled. 8. Severe osteoarthritis of both knee joints. 9. Morbid obesity. 10. Peripheral vascular disease. 11. The patient is positive for COVID-19; however, she is stable with normal white cell count. Her requirement of oxygen are stable. Her kidney function, liver enzymes, all within normal range. 12. Severe protein-calorie malnutrition, serum albumin is only 1.9 g/dL. PLAN: To continue with IV Zyvox and Zosyn. So far, all her cultures are negative. If she remains stable, she can be discharged back to [facility] if they accept her with the fact that she is positive for COVID-19. JOSEPH XIONG MD DR: SINDI/mina JOB#: [id number] / [id number]
[2020-04-01 11:12] VITALS: BP 109/57
--- NOTE | 2020-04-01 12:49 | PDOC ---
PROGRESS NOTES Subjective Subjective Comfortable, no new complaints Objective Objective Vital Signs Date Time Temp Pulse Resp B/P (MAP) Pulse Ox O2 Delivery O2 Flow Rate FiO2 04/01/20 11:12 97.1 60 17 109/57 (74) 99 Nasal Cannula 0.5 97.1 Intake and Output 04/01/20 07:00 Intake Total 1000 ml Output Total 5000 ml Balance -4000 ml Intake Oral 1000 ml Output Urine Total 5000 ml # Bowel Movements 3 Physical Exam Abdomen: Soft Extremities: No cyanosis General: Alert, Oriented X3, Cooperative, No acute distress HEENT: Atraumatic, Mucous membr. moist/pink Lungs: Other (CXR reviewed) MUSCULOSKELETAL: No joint tenderness Neuro: Normal speech, Sensation intact Psych/Mental Status: Mental status NL Skin: No breakdown Assessment Assessment 1. Fever: +covid, cellulitis LLE, treat per ID team. 2. AFIB RVR: heart rate well controlled. No further episodes of bradycardia no balaji. Patient is a poor candidate for long-term anticoagulation. 3. Chronic diastolic CHF: EF 50%. Clinically well compensated. 4. Chronic LE lymphedema 5. Hypertension; controlled 6. HLP 7. Diabetes, II; as per PCP 8. Debility with morbid obesity 9. Hypothyroidism: on replacement Plan Plan of Care Problems Medical Problems: (1) Altered mental status Status: Acute (2) Fever Status: Acute Comment Review of Relevant I have reviewed the following items manoj (where applicable) has been applied. Labs Laboratory Tests Test 04/01/20 05:00 04/01/20 07:56 White Blood Count 4.8 x10^3/uL (4.0-11.0) Red Blood Count 3.27 x10^6/uL (3.50-5.40) Hemoglobin 10.0 g/dL (12.0-15.5) Hematocrit 29.1 % (36.0-47.0) Mean Corpuscular Volume 89 fL (79-100) Mean Corpuscular Hemoglobin 31 pg (25-35) Mean Corpuscular Hemoglobin Concent 34 g/dL (31-37) Red Cell Distribution Width 13.4 % (11.5-14.5) Platelet Count 193 x10^3/uL (140-400) Sodium Level 142 mmol/L (136-145) Potassium Level 3.6 mmol/L (3.5-5.1) Chloride Level 104 mmol/L (98-107) Carbon Dioxide Level 33 mmol/L (21-32) Anion Gap 5 (6-14) Blood Urea Nitrogen 12 mg/dL (7-20) Creatinine 0.9 mg/dL (0.6-1.0) Estimated GFR (Cockcroft-Gault) 61.5 BUN/Creatinine Ratio 13 (6-20) Glucose Level 92 mg/dL (70-99) Calcium Level 8.6 mg/dL (8.5-10.1) Total Bilirubin 0.3 mg/dL (0.2-1.0) Aspartate Amino Transf (AST/SGOT) 16 U/L (15-37) Alanine Aminotransferase (ALT/SGPT) 15 U/L (14-59) Alkaline Phosphatase 60 U/L (46-116) Total Protein 5.9 g/dL (6.4-8.2) Albumin 2.2 g/dL (3.4-5.0) Albumin/Globulin Ratio 0.6 (1.0-1.7) Glucose (Fingerstick) 90 mg/dL (70-99) Microbiology 03/27/20 Blood Culture - Final, Complete NO GROWTH AFTER 5 DAYS Vitals/I & O Vital Sign - Last 24 Hours 03/31/20 03/31/20 03/31/20 03/31/20 15:00 19:10 19:10 22:46 Temp 98.8 96.6 96.5 98.8 96.6 96.5 Pulse 67 78 69 Resp 22 12 12 B/P (MAP) 126/61 (82) 151/68 (95) 140/74 (96) Pulse Ox 100 97 97 O2 Delivery Room Air Room Air Room Air Nasal Cannula O2 Flow Rate 2.0 04/01/20 04/01/20 04/01/20 04/01/20 04:15 07:50 08:10 08:21 Temp 96.8 97.0 96.8 97.0 Pulse 65 56 56 Resp 16 17 B/P (MAP) 121/66 (84) 117/58 (77) 117/58 Pulse Ox 97 99 O2 Delivery Room Air Nasal Cannula Room Air O2 Flow Rate 0.5 0.5 04/01/20 11:12 Temp 97.1 97.1 Pulse 60 Resp 17 B/P (MAP) 109/57 (74) Pulse Ox 99 O2 Delivery Nasal Cannula O2 Flow Rate 0.5 Intake and Output 03/31/20 03/31/20 04/01/20 15:00 23:00 07:00 Intake Total 500 ml 500 ml Output Total 1275 ml 2675 ml 1050 ml Balance -775 ml -2175 ml -1050 ml TJ CRUZ MD Apr 01, 2020 12:49
--- NOTE | 2020-04-01 13:21 | PDOC ---
Infectious Disease Note Subjective Subjective Comfortable, denies SOA/cough/CP/F/C Remains on 0.5L Eating 75-100% meals ROS ROS as mentioned above Vital Sign Vital Signs Vital Signs Date Time Temp Pulse Resp B/P (MAP) Pulse Ox O2 Delivery O2 Flow Rate FiO2 04/01/20 11:12 97.1 60 17 109/57 (74) 99 Nasal Cannula 0.5 97.1 Physical Exam PHYSICAL EXAM GENERAL: Propped up in bed, alert in NAD HEENT: Oral cavity clear NECK: Supple LUNGS: Clear bilaterally, nonlabored HEART: S1, S2, no murmurs appreciated ABDOMEN: Obese, soft, bowel sounds present, nontender : Blakely in place EXTREMITIES: Chronic venous stasis with chronic lymphedema. Faint redness present over the left lower extremity - stable. Skin abrasions over the right lower extremity. NEUROLOGIC: Alert and oriented x 3, grossly nonfocal. RUE-PICC (03/29) without signs of complications Labs Lab Laboratory Tests Test 04/01/20 05:00 04/01/20 07:56 White Blood Count 4.8 x10^3/uL (4.0-11.0) Red Blood Count 3.27 x10^6/uL (3.50-5.40) Hemoglobin 10.0 g/dL (12.0-15.5) Hematocrit 29.1 % (36.0-47.0) Mean Corpuscular Volume 89 fL (79-100) Mean Corpuscular Hemoglobin 31 pg (25-35) Mean Corpuscular Hemoglobin Concent 34 g/dL (31-37) Red Cell Distribution Width 13.4 % (11.5-14.5) Platelet Count 193 x10^3/uL (140-400) Sodium Level 142 mmol/L (136-145) Potassium Level 3.6 mmol/L (3.5-5.1) Chloride Level 104 mmol/L (98-107) Carbon Dioxide Level 33 mmol/L (21-32) Anion Gap 5 (6-14) Blood Urea Nitrogen 12 mg/dL (7-20) Creatinine 0.9 mg/dL (0.6-1.0) Estimated GFR (Cockcroft-Gault) 61.5 BUN/Creatinine Ratio 13 (6-20) Glucose Level 92 mg/dL (70-99) Calcium Level 8.6 mg/dL (8.5-10.1) Total Bilirubin 0.3 mg/dL (0.2-1.0) Aspartate Amino Transf (AST/SGOT) 16 U/L (15-37) Alanine Aminotransferase (ALT/SGPT) 15 U/L (14-59) Alkaline Phosphatase 60 U/L (46-116) Total Protein 5.9 g/dL (6.4-8.2) Albumin 2.2 g/dL (3.4-5.0) Albumin/Globulin Ratio 0.6 (1.0-1.7) Glucose (Fingerstick) 90 mg/dL (70-99) Micro Microbiology 03/27/20 Blood Culture - Preliminary, Resulted NO GROWTH AFTER 4 DAYS Objective Assessment Cellulitis left lower extremity - improving COVID -19 positive, 03/27 Fever - better Altered mental status, likely metabolic, improving. Lactic acidosis. Atrial fibrillation with rapid ventricular response. History of group B strep sepsis. Bipolar disorder with depression. History of congestive heart failure. Degenerative joint disease. Diabetes. Chronic knee pain. Morbid obesity. Peripheral vascular disease. Chronic venous stasis and lymphedema. Plan Plan of Care Continue Zyvox and Zosyn (started 03/27) - wean soon Monitor labs Maintain aspiration precaution. Supportive care Airborne isolation for COVID-19 D/w nursing. Patient discussed with STRUCTURAL STEEL TRADES WORKER. Chart reviewed in detail. Above plan co-formulated and agreed upon with STRUCTURAL STEEL TRADES WORKER on 04/01/2020. ANITA LANGE APRN Apr 01, 2020 13:21 CECILIA MA MD Apr 01, 2020 20:04
[2020-04-01 14:48] VITALS: BP 114/58
[2020-04-01 19:50] VITALS: BP 144/57
[2020-04-01] MEDS: OLANZapine 5 MG TABLET PO SCH (22:01)
[2020-04-01] MEDS: ALPRAZolam 0.5 MG TABLET PO PRN (22:01)
[2020-04-02] MEDS: PIPERACILLIN/TAZOBACTAM 3.375 GM in IV NORMAL SALINE 50ML 50 ML IV SCH ×3 (00:17→12:42)
[2020-04-02 01:05] VITALS: BP 108/56
[2020-04-02 03:25] VITALS: BP 111/57
[2020-04-02] MEDS: LEVOTHYROXINE 25 MCG TABLET. PO SCH (06:55)
[2020-04-02 07:00] VITALS: BP 112/59
[2020-04-02] MEDS: DOCUSATE SODIUM 100 MG CAPSULE. PO SCH (09:00)
[2020-04-02] MEDS: LACTOBACILLUS RHAMNOSUS GG 1 CAPSULE. PO SCH (09:02)
[2020-04-02] MEDS: ASPIRIN CHEWABLE 81 MG TABLET. PO SCH (09:02)
[2020-04-02] MEDS: POTASSIUM CHLORIDE 20 MEQ TABLET.ER. PO SCH (09:03)
[2020-04-02] MEDS: FUROSEMIDE 40 MG TABLET. PO SCH (09:03)
--- NOTE | 2020-04-02 09:03 | PDOC ---
Infectious Disease Note Subjective Subjective Comfortable, denies SOA/cough/CP/F/C Remains on 0.5L Eating 75-100% meals Vital Sign Vital Signs Vital Signs Date Time Temp Pulse Resp B/P (MAP) Pulse Ox O2 Delivery O2 Flow Rate FiO2 04/02/20 07:00 64 22 112/59 (76) 99 Room Air 04/02/20 03:25 96.9 96.9 04/01/20 14:48 0.5 Physical Exam PHYSICAL EXAM GENERAL: Propped up in bed, alert in NAD HEENT: Oral cavity clear NECK: Supple LUNGS: Clear bilaterally, nonlabored HEART: S1, S2, no murmurs appreciated ABDOMEN: Obese, soft, bowel sounds present, nontender : Blakely in place EXTREMITIES: Chronic venous stasis with chronic lymphedema. Faint redness present over the left lower extremity - stable. Skin abrasions over the right lower extremity. NEUROLOGIC: Alert and oriented x 3, grossly nonfocal. RUE-PICC (03/29) without signs of complications Labs Lab Laboratory Tests Test 04/01/20 22:06 04/02/20 07:49 Glucose (Fingerstick) 93 mg/dL (70-99) 83 mg/dL (70-99) Micro Microbiology 03/27/20 Blood Culture - Final, Complete NO GROWTH AFTER 5 DAYS Objective Assessment Cellulitis left lower extremity - improving COVID -19 positive, 03/27 Fever - better Altered mental status, likely metabolic, improving. Lactic acidosis. Atrial fibrillation with rapid ventricular response. History of group B strep sepsis. Bipolar disorder with depression. History of congestive heart failure. Degenerative joint disease. Diabetes. Chronic knee pain. Morbid obesity. Peripheral vascular disease. Chronic venous stasis and lymphedema. Plan Plan of Care Continue Zyvox and Zosyn (started 03/27) - wean soon Monitor labs Maintain aspiration precaution. Supportive care Airborne isolation for COVID-19 D/w nursing. Patient discussed with CANVAS GOODS MAKER. Chart reviewed in detail. Above plan co-formulated and agreed upon with CANVAS GOODS MAKER on 04/01/2020. WIN MITCHELL MD Apr 02, 2020 09:03
[2020-04-02] MEDS: MULTIVITAMIN with MINERAL TABLET. PO SCH (09:04)
[2020-04-02] MEDS: GABAPENTIN 300 MG CAPSULE. PO SCH ×2 (09:04→12:42)
[2020-04-02] MEDS: METOPROLOL SUCC 24HR ER 25 MG TAB.ER.24H. PO SCH (09:06)
[2020-04-02] MEDS: NYSTATIN TOPICAL POWDER 15GM BOTTLE. TP SCH (09:06)
--- NOTE | 2020-04-02 11:06 | NUR ---
JEISON following. Reviewed chart and spoke with RN. Pt ready for discharge back to [facility]. Pt resides in LTC at this facility. Pt on room air and IV abx. JEISON called and spoke with [facility], who stated they can't take their resident back as they aren't equipped to handle COVID positive patients. [facility] stated they won't take pt back until she has a negative COVID test. JEISON informed [facility] that pt is ready for discharge and she will talk with staff at [facility] to see how they can meet pt's needs and will call this JEISON back. JEISON notified supervisor nurse Toño Beckwith. JEISON to continue following. Addendum: 04/02/20 at 1354 by YOSELIN MCHUGH JEISON attempted to call [facility] back this afternoon r/t pt discharge back to facility. LVM as JEISON told [facility] is not available at this time. Addendum: 04/02/20 at 1524 by YOSELIN MCHUGH Phone call from [facility] who stated [facility] has made arrangements to take pt for discharge today, 04/02/2020. JEISON spoke with Dr. Andino and pt will discharge SNU to [facility]. JEISON phoned and faxed clinicals, , (fax). Packet of clinicals is ready to be sent with pt. [facility] to arrange for stretcher transport for COVID positive. Pt on room air. Pt to discharge on oral medications. RN to call report. Addendum: 04/02/20 at 1619 by YOSELIN MCHUGH phone call from [facility] requesting assistance arranging transportation. JEISON phoned and faxed completed Medical Necessity form to [facility] [employer], , (fax). Stretcher transport arranged for 1630. Pt COVID positive. [facility] confirmed notification of discharge time and that discharge orders were received. RN to call report and notify family. No additional JEISON needs at this time.
[2020-04-02 11:08] VITALS: BP 138/74
--- NOTE | 2020-04-02 11:10 | NUR ---
a.m. docusate nonadmin d/t loose stool after breakfast
[2020-04-02 15:00] VITALS: BP 138/72
--- NOTE | 2020-04-02 15:08 | NUR ---
Wound care Photo assessment done per pt COVID 19 status. Recommend to continue A&D ointment to buttocks and nystatin powder to R flank. WC will continue to follow.
--- NOTE | 2020-04-02 16:01 | PDOC ---
PROGRESS NOTES Subjective Subjective Comfortable, afebrile, denied any chest pain or shortness of breath Objective Objective Vital Signs Date Time Temp Pulse Resp B/P (MAP) Pulse Ox O2 Delivery O2 Flow Rate FiO2 04/02/20 15:00 97.1 65 22 138/72 (94) 96 Room Air 97.1 04/01/20 14:48 0.5 Intake and Output 04/02/20 07:00 Intake Total 600 ml Output Total 1525 ml Balance -925 ml Intake Oral 600 ml Output Urine Total 1525 ml # Bowel Movements 2 Physical Exam Abdomen: Soft Extremities: No cyanosis General: Alert, Oriented X3, Cooperative, No acute distress HEENT: Atraumatic, Mucous membr. moist/pink Lungs: Other (CXR reviewed) MUSCULOSKELETAL: No joint tenderness Neuro: Normal speech, Sensation intact Psych/Mental Status: Mental status NL Skin: No breakdown Assessment Assessment 1. Fever: +covid, cellulitis LLE, improving, continue antibiotics per ID team. 2. AFIB RVR: heart rate relatively well controlled. Few brief episodes of tachycardia were noted without any further episodes of bradycardia. Patient is a poor candidate for long-term anticoagulation. 3. Chronic diastolic CHF: EF 50%. Clinically well compensated. 4. Chronic LE lymphedema 5. Hypertension; controlled 6. HLP 7. Diabetes, II; as per PCP 8. Debility with morbid obesity 9. Hypothyroidism: on replacement Plan Plan of Care Problems Medical Problems: (1) Altered mental status Status: Acute (2) Fever Status: Acute Comment Review of Relevant I have reviewed the following items manoj (where applicable) has been applied. Labs Laboratory Tests Test 04/01/20 22:06 04/02/20 07:49 Glucose (Fingerstick) 93 mg/dL (70-99) 83 mg/dL (70-99) Microbiology 03/27/20 Blood Culture - Final, Complete NO GROWTH AFTER 5 DAYS Vitals/I & O Vital Sign - Last 24 Hours 04/01/20 04/01/20 04/02/20 04/02/20 19:50 23:10 01:05 03:25 Temp 96.7 97.7 96.9 96.7 97.7 96.9 Pulse 60 72 72 68 Resp 22 20 20 B/P (MAP) 144/57 (86) 108/56 (73) 111/57 (75) Pulse Ox 98 93 91 O2 Delivery Room Air Room Air Room Air 04/02/20 04/02/20 04/02/20 04/02/20 07:00 08:00 09:06 11:08 Temp 97.8 97.8 Pulse 64 64 72 Resp 22 20 B/P (MAP) 112/59 (76) 112/59 138/74 (95) Pulse Ox 99 96 O2 Delivery Room Air Room Air Room Air 04/02/20 15:00 Temp 97.1 97.1 Pulse 65 Resp 22 B/P (MAP) 138/72 (94) Pulse Ox 96 O2 Delivery Room Air Intake and Output 04/01/20 04/01/20 04/02/20 15:00 23:00 07:00 Intake Total 600 ml Output Total 1325 ml 200 ml Balance -1325 ml 400 ml TJ CRUZ MD Apr 02, 2020 16:01
[2020-04-02] MEDS ORDERED: METO25TA4 PO (16:03)
--- NOTE | 2020-04-02 16:04 | SNU/HH DC ---
DISCHARGE ORDERS DISCHARGE INFORMATION: DISCHARGE DATE: Apr 02, 2020 FINAL DIAGNOSIS Problems Medical Problems: (1) Altered mental status Status: Acute (2) Fever Status: Acute CONDITION ON DISCHARGE: Stable CODE STATUS: Code Status: Full ASSISTED: SNF STAY <30 DAYS: Yes POST DISCHARGE ORDERS: ACTIVITY ORDERS: Activity as tolerated WEIGHT BEARING STATUS: As tolerated BATHING ORDERS: Shower-keep dressing dry, No Tub Bath until see Dr. MARX AFTER DISCHARGE: Cardiac WOUND/INCISION CARE: Keep wound elevated, Change dressing CHECKS AFTER DISCHARGE: CHECKS AFTER DISCHARGE: Check blood press - daily, Check blood sugar, ac/hs FOLLOW-UP: LAB ORDERS FOR FOLLOW-UP: cbc/cmp weekly for 4 weeks ,notify CT doctor about TREATMENT/EQUIPMENT ORDERS: ADAPTIVE EQUIPMENT NEEDED: None RESPIRATORY EQUIPMENT NEEDED: Oxygen Physical Therapy For: Evalulation/Treatment Occupational Therapy For: Evaluation/Treatment DISCHARGE MEDICATIONS: Home Meds Active Scripts Metoprolol Tartrate (METOPROLOL TARTRATE) 25 Mg Tablet, 0.5 TAB PO BID for AFIB for 30 Days, #30 TAB 1 Refill Prov:JOSEPH XIONG MD 04/02/20 Potassium Chloride (KLOR-CON M20) 20 Meq Tab.er.prt, 20 MEQ PO DAILYWBKFT for pot for 30 Days, #30 TAB.SR Prov:DAWSON ROY MD 04/14/19 Levothyroxine Sodium (SYNTHROID) 25 Mcg Tablet, 25 MCG PO DAILY06 for thyroid for 30 Days, #30 TAB Prov:DAWSON ROY MD 04/14/19 Reported Medications Acetaminophen (ACETAMINOPHEN) 500 Mg Tablet, 650 MG PO PRN Q6HRS PRN for MILD PAIN 1-3, TAB 03/27/20 Furosemide (FUROSEMIDE) 40 Mg Tablet, 1 TAB PO DAILY for edema, #30 TAB 5 Refills 11/02/19 Docusate Sodium (Colace Clear) 50 Mg Capsule, 1 CAP PO BID for constipation for 30 Days, #60 CAP 0 Refills 08/18/19 Gabapentin (GABAPENTIN ) 100 Mg Capsule, 300 MG PO TID for NEUROGENIC PAIN, CAP 12/12/18 Baclofen (BACLOFEN) 10 Mg Tablet, 1 TAB PO TID for muscle spasms, #90 TAB 2 Refills 12/12/18 Hydrocodone/Apap 5-325 (NORCO 5-325 TABLET) 1 Each Tablet, 1-2 TAB PO Q4HRS PRN for PAIN, #40 TAB 07/10/17 Glucagon,Human Recombinant (GLUCAGON EMERGENCY KIT) 1 Mg Kit, 1 MG IM PRN Q15MIN PRN for LOW BLOOD SUGAR, #2 KIT 5 Refills 07/10/17 Bisacodyl (BISCOLAX) 10 Mg Supp.rect, 10 MG RC PRN DAILY PRN for CONSTIPATION, SUPP.RECT 07/10/17 Alprazolam (ALPRAZOLAM) 0.5 Mg Tablet, 1 TAB PO PRN TID PRN for ANXIETY, #30 TAB 07/10/17 Nystatin (NYAMYC) 15 Gm Powder, 15 GM TP BID, MISC 07/10/17 Multivits,Th W-Fe,Other Min (THERA-M) 1 Each Tablet, 1 EACH PO DAILY, TAB 07/10/17 Olanzapine (OLANZAPINE) 20 Mg Tablet, 10 MG PO DAILY for bipolar, TAB 07/10/17 Aspirin (ASPIRIN) 81 Mg Tab.chew, 1 TAB PO DAILY, #30 TAB 3 Refills 07/10/17 Amlodipine Besylate (AMLODIPINE BESYLATE) 10 Mg Tablet, 10 MG PO DAILY, TAB 07/10/17 Discontinued Reported Medications Acetaminophen (ACETAMINOPHEN) 500 Mg Tablet, 2 TAB PO PRN Q6HRS PRN for pain or fever for 15 Days, #60 TAB 0 Refills 03/05/20 Polyethylene Glycol 3350 (MIRALAX) 17 Gm Powd.pack, 1 PACKET PO DAILY for constipation for 2 Days, #2 PACKET 0 Refills dissolve in water 08/18/19 JOSEPH XIONG MD Apr 02, 2020 16:04
--- NOTE | 2020-04-02 16:43 | NUR ---
pt discharged back to [facility]. PICC line removed, cath intact. Blakely removed w/out complaints. wounds pictured on L buttock and R abdominal/flank fold. Report given to LEO Gillespie at [facility]. EMS here to get patient. Pt stable upon DC.
--- NOTE | 2020-04-02 20:29 | DS ---
DATE OF DISCHARGE: 04/02/2020 HOSPITAL COURSE: The patient is a 74-year-old female patient who is a resident at [facility], and was admitted initially with altered mental status. She was also febrile with temperature of 102.4. She does have mild erythema on the outer aspect of left leg and we did actually swab her for COVID-19 and she was positive. We did start her empirically on Zosyn and Zyvox and she did actually very well. She remained afebrile throughout his stay. Her white cell count remained normal. She did have an episode of atrial fibrillation with RVR, so she was seen by the sidewalk inspector and was started on a small dose of metoprolol that controlled her heart rate. She was continued on her furosemide for her chronic diastolic congestive heart failure. She remained hemodynamically stable, afebrile. She completed about 7-day course of antibiotic, a decision was made to discharge her back to [facility] to be quarantined. PHYSICAL EXAMINATION: GENERAL: When I examined her today, she looked pale, but no jaundice, cyanosis or thyromegaly. No jugular venous distention. No limb edema. VITAL SIGNS: Her heart rate was 65, blood pressure was 138/72, temperature was 97.1, respiratory rate was 22 and oxygen saturation was 96% on room air. HEAD, EYES, EARS, NOSE AND THROAT: Showed normocephalic, atraumatic. NECK: Supple. HEART: Showed normal first and second heart sounds. No gallop or murmur. CHEST: Clear to auscultation. No crepitation or rhonchi. ABDOMEN: Distended, soft, nontender. NEUROLOGIC: She is awake, alert, responding appropriately. All cranial nerves intact. She moves extremities without difficulty. Her intake over the last 24 hours was 1000, output was 5000. LABORATORY DATA: As of yesterday showed a white cell count 4800, hemoglobin 10, hematocrit 30, MCV 89 and platelet count of 193,000. Her chemistry showed a serum sodium 142, potassium 3.6, chloride 104, bicarbonate 33 anion gap of 5, BUN 12, creatinine 0.9, estimated GFR was 61 mL per minute. Her glucose was 92, calcium was 8.6. Total bilirubin, AST, ALT, alkaline phosphatase were normal. Total protein was 5.9, albumin was 2.2. DISCHARGE MEDICATIONS: She was discharged back to [facility] to continue lactobacillus rhamnosus 1 capsule twice a day, metoprolol succinate 12.5 mg once a day, magnesium hydroxide or milk of magnesia 30 mL p.o. daily p.r.n. for constipation, vitamin A and D ointment applied topically as needed, olanzapine 10 mg at bedtime, multivitamin 1 tablet once a day, Colace 100 mg twice a day, potassium chloride 20 mEq once a day, nystatin powder applied topically twice a day, levothyroxine sodium 25 mcg once a day, gabapentin 300 mg 3 times a day, furosemide 40 mg once a day, aspirin 81 mg once a day, hydrocodone/APAP one tablet every 4 hours, bisacodyl 10 mg suppositories rectally daily p.r.n. for constipation, alprazolam 0.5 mg 3 times a day and acetaminophen 650 mg every 6 hours. FINAL DISCHARGE DIAGNOSES: 1. Altered mental status, likely due to metabolic encephalopathy, resolved. 2. Fever, likely due to COVID-19 infection. 3. Mild cellulitis of the outer aspect of the left lower extremity on a background of chronic lymphedema, treated with a 7-day course of Zyvox and Zosyn. 4. Atrial fibrillation with rapid ventricular response, now rate controlled, on metoprolol 12.5 mg twice a day. She is not a candidate for anticoagulation. 5. History of group B Streptococcus infection. 6. History of chronic diastolic congestive heart failure, clinically well compensated. 7. Type 2 diabetes mellitus, seems to be well controlled. 8. Severe osteoarthritis of both knee joints. 9. Morbid obesity. 10. Peripheral vascular disease. 11. The patient is positive for COVID-19; however, she is stable with normal white cell count. Her requirement of oxygen has decreased dramatically and she is now on room air, maintaining her oxygen saturations 96%. Her kidney function, liver enzymes are all within normal range. 12. Severe protein-calorie malnutrition, serum albumin is only 1.9 g/dL. JOSEPH XIONG MD DR: SINDI/mina JOB#: [id number] / [id number]
--- NOTE | 2020-04-02 22:46 | PN ---
DATE: 04/02/2020 LOCATION: Room 673. SUBJECTIVE: Currently, the patient is lying in bed. She feels better. She is on room air. Her legs have significantly improved. She denies any significant pain or shortness of air. No nausea, no vomiting, no diarrhea. She is curious as to when she can go back to her facility. PHYSICAL EXAMINATION: VITAL SIGNS: She is afebrile, temperature 97.8, pulse 72, respirations 20, blood pressure 138/74, satting 96% on room air. CONSTITUTIONAL: She is pleasant. She is cooperative, she is in no acute distress. HEENT: Oral cavity, pharynx is clear. NECK: Full. No JVD. LUNGS: Decreased in the bases. CARDIOVASCULAR: S1, S2. ABDOMEN: Obese, soft, no guarding or rebound. EXTREMITIES: No clubbing or cyanosis. Left lower extremity is without gross warmth. There is no drainage, there is no tenderness and appears to have some chronic changes to her leg. Cultures are negative. ASSESSMENT: 1. Cellulitis, left lower extremity is improved. 2. COVID positive on the 03/27, currently on room air. 3. Fever, improved. 4. Altered mental status, improved. 5. Atrial fibrillation with rapid ventricular response. 6. History of group B strep. 7. Bipolar depression. 8. Morbid obesity. RECOMMENDATIONS: For now, discontinue the Zyvox and Zosyn and she can go back to her facility from ID standpoint and we will sign off. WIN MITCHELL MD DR: SHIKHA/mina JOB#: [id number] / [id number] KELLIE
== END 2020-04-02 16:45 | DRG 177 ==
LOC: ER 02:25 → 2 NORTH 05:13 → OBSVTOIN 10:59 → 6 SOUTH 15:54
PROVIDERS: ADMIT Internal Medicine; ATTEND Internal Medicine
PROC: 02HV33Z Insertion of Infusion Device into Superior Vena Cava, Percutaneous Approach (ICD-10-PCS; principal; 2020-03-29)
PROC: B548ZZA Ultrasonography of Superior Vena Cava, Guidance (ICD-10-PCS; 2020-03-29)
DX: U07.1 COVID-19 (principal); E43 Unspecified severe protein-calorie malnutrition; G93.41 Metabolic encephalopathy; L03.116 Cellulitis of left lower limb; E87.2 Acidosis; I50.32 Chronic diastolic (congestive) heart failure; Z68.43 Body mass index [BMI] 50.0-59.9, adult; E03.9 Hypothyroidism, unspecified; E11.51 Type 2 diabetes mellitus with diabetic peripheral angiopathy without gangrene; E66.01 Morbid (severe) obesity due to excess calories; E78.00 Pure hypercholesterolemia, unspecified; E78.5 Hyperlipidemia, unspecified; G89.29 Other chronic pain; I11.0 Hypertensive heart disease with heart failure; I48.0 Paroxysmal atrial fibrillation; I87.309 Chronic venous hypertension (idiopathic) without complications of unspecified lower extremity; I89.0 Lymphedema, not elsewhere classified; I87.8 Other specified disorders of veins; M19.90 Unspecified osteoarthritis, unspecified site; J44.9 Chronic obstructive pulmonary disease, unspecified; Z74.01 Bed confinement status; Z87.440 Personal history of urinary (tract) infections; Z87.891 Personal history of nicotine dependence; F41.9 Anxiety disorder, unspecified; K21.9 Gastro-esophageal reflux disease without esophagitis; F31.9 Bipolar disorder, unspecified
CPT/HCPCS: 36415; 36569; 71045; 80048; 80053; 81001; 82962; 83605; 83735; 84484; 85025; 85027; 86850; 86900; 86901; 87040; 93005; 96361; 96374; 96375; 99285; G0378; G0379; J0696; J1160; J2020; J2543; J3475; J3490; J7030; U0003-CS